=== PATIENT | female | born 1990 | race Caucasian/White ===

== ENCOUNTER 2023-11-05 13:39 | Observation (INO) ==
[2023-11-05] MEDS: LACTATED RINGER'S 1,000 ML IV PRN ×2 (14:03→16:50)
[2023-11-05 14:37] LABS: Appearance Urine Cloudy (Clear); Bilirubin Urine Negative (Negative); Blood Urine 3+ (Negative); Color Urine Yellow; Glucose Urine UA Negative (Negative); Ketones Urine 1+ (Negative); Leukocyte Esterase Urine Trace (Negative); Nitrite Urine Negative (Negative); Protein Urine 3+ (Negative); Specific Gravity Urine 1.024 (1.000-1.030); Urobilinogen Urine Negative (Negative); pH Urine 6.5 (4.5-7.5)
[2023-11-05 14:38] LABS: Bacteria Urine Automated None Seen (None Seen); Hyaline Casts Urine Present /lpf (None Presnt); RBC Urine Automated >20 /hpf (0-2); WBC Urine Automated 0-5 /hpf (0-5)
[2023-11-05 14:47] LABS: Basophils # (auto) 0.06 K/uL (0.00-0.20); Basophils % (auto) 0.4 %; Eosinophils # (auto) 0.01 K/uL (0.00-0.50); Eosinophils % (auto) 0.1 %; Hematocrit (blood only) 36.9 % (37.0-47.0); Hemoglobin 12.9 g/dl (12.0-16.0); Immature Granulocytes % (auto) 1.2 %; Lymphocytes % (auto) 13.3 %; Mean Corpuscular Hemoglobin 31.1 pg (25.0-34.0); Mean Corpuscular Volume 88.9 fL (80.0-100.0); Mean Platelet Volume 12.2 fL (9.4-12.4); Monocytes % (auto) 4.2 %; Neutrophils # (auto) 13.34 K/uL (1.40-6.50); Neutrophils % (auto) 80.8 %; Platelet Count 254 K/uL (130-400); RDW Coefficient of Variation 14.3 % (11.5-14.5); RDW Standard Deviation 46.1 fL (36.4-46.3); Red Blood Count 4.15 M/uL (4.20-5.40); White Blood Count 16.51 K/ul (4.8-10.8)
--- NOTE | 2023-11-05 15:54 | Ultrasound Report ---
US OB limited CLINICAL HISTORY: bleeding at 32 weeks gestation COMPARISON STUDY: OB ultrasound September 02, 2023. TECHNIQUE: Transabdominal sonography of the pelvis was performed. FINDINGS: Single viable intrauterine gestation is noted with cephalic presentation. heart rate is normal at 148 bpm. Cervix is closed, measuring 2.7 cm in length. Amniotic fluid index is normal at 15 cm. Anterior placenta is noted. There is no placental abnormality. IMPRESSION: 1. Single viable intrauterine gestation with cephalic presentation. 2. Normal heart rate. 3. Closed cervix, measuring 2.7 cm in length. 4. No placental abnormality identified. 5. Normal amniotic fluid index. ACT 112: Negative or not required by law. Electronically signed by: Miki Adair M.D. 11/05/2023 3:52 PM
[2023-11-05 15:58] LABS: Fibrinogen 485 mg/dl (184-400)
--- NOTE | 2023-11-05 16:22 | Progress Note ---
Date of Service November 05, 2023 Assessment & Plan (1) with third trimester bleeding, antepartum: Plan: Patient is 33-year-old G1, P0 at 32 gestation presents with bleeding. Patient had intercourse last night. is complicated with gestation GDM A2. and obesity. Speculum exam shows cervix is 1cm, thick and posterior no gross blood in the vaginal vault. IV fluids were started CBC CMP ultrasound is ordered and reviewed Urine is ordered but appears contaminated. Cath urine will therefore we obtained Betamethasone is ordered Plan Admitted for admitted for observation Results & Data Vital Signs (Past 12 Hours) Vital Signs Temp Pulse Resp BP 11/05/23 13:43 116 H 142/87 H 11/05/23 13:43 36.9 C 18
[2023-11-05] MEDS: BETAMETH SOD PHOS/ACETATE IA 6 MG/ML IM STA (16:50)
[2023-11-05 16:51] LABS: Albumin Globulin Ratio 1.3 (0.9-2); Albumin Level 3.4 gm/dl (3.4-5.0); BUN Creatinine Ratio 12.7 (10-20); Bilirubin,Total 0.3 mg/dl (0.2-1.0); Calcium 8.8 mg/dl (8.6-10.3); Creatinine Clr Calc Pharmacy 125.6 ml/min; Est GFR (African American) 130.6 ml/min; Est GFR (Non-African American) 112.7 ml/min; Globulin 2.7 gm/dl (2.5-4.0); Total Protein 6.1 gm/dl (6.0-8.3)
[2023-11-05] MEDS: metFORMIN HCL 500 MG TAB PO SCH (20:34)
[2023-11-05 20:36] LABS: Appearance Urine Clear (Clear); Bilirubin Urine Negative (Negative); Blood Urine Negative (Negative); Color Urine Yellow; Glucose Urine UA Negative (Negative); Ketones Urine 2+ (Negative); Leukocyte Esterase Urine Negative (Negative); Nitrite Urine Negative (Negative); Protein Urine Negative (Negative); Specific Gravity Urine 1.022 (1.000-1.030); Urobilinogen Urine Negative (Negative); pH Urine 6.5 (4.5-7.5)
[2023-11-05 20:55] LABS: Creatinine Urine Random 123.3 mg/dl; Protein Creatinine Ratio Urine 0.1 (0-0.2); Total Protein Urine Random 12.1 mg/dl (0-11.9)
--- OUTSIDE RECORDS SUMMARY | 2023-11-05 21:02 | External Medical Summary | Summary of Care ---
Author Name Unknown Organization [facility] Address [address] [place] [address] Phone [phone] Care Team Providers Care Sponge Hooker Name Role Phone WoodrowLainey Primary Care Provider Encounter Details Date Type Department Care Team (Late st Contact Info) Description 10/24/2023 1:00 PM EDT Office Visit Practical Nurse Obstetrics Maternal Medicine, [address] [address] Marbella Fowler DO [address] [place] [address] Obesity during in second trimester*; Gestational diabetes mellitus (GDM) controlled on oral hypoglycemic drug, antepartum; Ultrasound for screening for growth restriction; 30 weeks gestation of Allergies No known active allergiesdocumented as of this encounter (statuses as of 10/24/2023) Medications Medication Sig Dispensed Refills Start Date End Date Status Ascorbic Acid (VITAMIN C) 1000 MG TabletIndications:T aken during menstrual cycle Take 1 Tablet by mouth in the morning. Active B-12 500 MCG Oral Tablet Take by mouth. 07/07/2020 Active Pantoprazole Sodium 40 MG Oral Tablet Delayed Release (Protonix)Indicatio ns:Gastroesophageal reflux disease with esophagitis without hemorrhage Take 1 Tablet by mouth in the morning. 30 minutes before the first meal of the day. Do not crush, split or chew the tablet. 30 Tablet 5 12/05/2022 Active Ondansetron HCl 8 MG Oral Tablet 1 tablet by mouth every 8 hours as needed for nausea and/or vomiting 30 Tablet 1 05/21/2023 Active Complete Oral Capsule Therapy Pack Take by mouth. Active [employer]Ze[employer] Verio Flex System w/Device KitIndications:Diet controlled gestational diabetes mellitus (GDM) in second trimester Use to test blood sugars 4 times daily (fasting, 1 hour after breakfast, lunch, and dinner) 1 Kit 07/11/2023 Active [employer] Verio In Vitro Strip (Glucose Blood)Indications:D iet controlled gestational diabetes mellitus (GDM) in second trimester Use to test blood sugars 4 times daily (fasting, 1 hour after breakfast, lunch, and dinner) 125 Strip 6 07/11/2023 Active Stagend.comuch Delica Lancets 30GIndications:Diet controlled gestational diabetes mellitus (GDM) in second trimester Use to test blood sugars 4 times daily (fasting, 1 hour after breakfast, lunch, and dinner) 200 Each 6 07/11/2023 Active Aspirin 81 MG Oral Capsule Take by mouth. Active metFORMIN HCl 500 MG Oral Tablet (Glucophage)Indicat ions:Supervision of high risk in second trimester,Gestation al diabetes mellitus (GDM) in second trimester controlled on oral hypoglycemic drug Take 1000 mg by mouth with breakfast and 1000 mg by mouth at bedtime; approximately 12 hours apart. 90 Tablet 1 08/26/2023 Active Cyclobenzaprine HCl 10 MG Oral Tablet (Flexeril) Take 1 Tablet by mouth at bedtime as needed for Muscle spasms. 30 Tablet 2 09/30/2023 Active documented as of this encounter (statuses as of 10/24/2023) Active Problems Problem Noted Date Diagnosed Date Supervision of high-risk , second trime ster 07/16/2023 Blood pressure elevated without history of HTN 0 07/16/2023 Overview: Patient reports history of elevated blood pressure in the past while taking hormonal control. Blood pressure currently stable in . Recommend bASA 81 mg daily; suspect chronic hypertension as well as several other preeclampsia risk factors (Class 1 obesity, nulliparity). BP Readings from Last 5 Encounters: 07/02/23 108/74 04/09/24 128/82 03/15/23 126/84 12/18/22 132/92 12/10/22 130/90 Last Assessment & Plan: BP Readings from Last 5 Encounters: 08/02/23 114/70 07/02/23 108/74 06/04/23 128/82 03/15/23 126/84 12/18/22 132/92 Class 1 obesity 07/16/2023 Gestational diabetes mellitu s (GDM) controlled on oral hypoglycemic drug, antepartum 07/11/2023 Overview: Gestational diabetes diagnosed at 15 weeks by abnormal 3 hour GTT. Nutrition consult scheduled 08/01. Lab Results Component Value Date/Time 50-G GESTATIONAL GLUCOSE, 1 HOUR - [facility] 195 (H) 07/02/2023 02:48 PM 100-G GESTATIONAL GLUCOSE, 1 HOUR - [facility] 185 (H) 07/09/2023 09:51 AM 100-G GESTATIONAL GLUCOSE, 2 HOUR - [facility] 184 (H) 07/09/2023 11:00 AM 100-G GESTATIONAL GLUCOSE, 3 HOUR - [facility] 89 07/09/2023 11:50 AM 100-G GESTATIONAL GLUCOSE, FASTING - [facility] 95 (H) 07/09/2023 08:45 AM HEMOGLOBIN A1C - [facility] 5.5 09/06/2021 02:49 PM She reports her home blood glucose as following: DATE Fasting 1 hr after Breakfast 1 hr after Lunch 1 hr after Dinner 07/11/23 153 07/12/23 128 X 176 116 07/13/23 96 90 161 106 07/14/23 93 156 137 132 07/15/23 82 X 155 138 07/16/23 87 07/16/23: MFM [facility]T consult complete. Enrolled in [facility]. Instructions provided to report blood sugars each week for MFM review 07/19/23: [facility] unable to contact for RPM. Message sent to the [facility] to schedule FU ADAPT 07/23/23: RPM reviewed; Elevated FBS and PP's. Msg to PARs to schedule ADAPT visit. Nutrition visit schedule 08/02/23. 07/25/23: ADAPT visit complete; elevated FBS and some PP values; patient deferred starting insulin but agreeable to Metformin; ordered Metformin 500mg PO daily with evening meal/snack; recommend fasting 8-10 hours overnight along with having a bedtime snack of 30g CHO paired with protein; recommend keeping food log; patient aware of upcoming Nutrition visit 07/29/20237410-UPF-ljxdbal stable. Multiple missed readings; encouraged to test and report as instructed. 08/05/20236114-YDS-gmthhbkq post prandial lunch and dinner values. Maternal medicine nurse practitioners to review. 08/05/23: RPM reviewed; PP elevations; increase to Metformin 500mg PO with breakfast and evening meal/snack 08/06/23: HgbA1c 5.5% 08/09/23: RPM message received - patient reporting GI symptoms; recommend F/U ADAPT to discuss possibility of switching to insulin; awaiting patient response back 08/12/20233873-VGE-tcprfznr elevated fasting blood sugars and post prandial values. Patient agreeable to follow up ADAPT appointment. [facility] messaged to schedule. 08/14/23: ADAPT follow-up completed. Increase Metformin to 1000 mg in the morning; continue 500 mg at night for now. Discussed that she will likely also need increase in morning dose, but will adjust slowly to try and minimize unpleasant side effects. Patient will reach out if she is experiencing intolerable GI discomfort so that we can discuss switching to insulin if needed. 08/19/20231206-TTZ-vdrtord stable (< 50% elevated) 08/26/2023-RPM-3 elevated fasting blood sugars and 3 post prandial dinner values. Will have maternal medicine nurse practitioners review. 08/26/23: RPM reviewed; Continue Metformin to 1000 mg in morning, increase to 1000 mg at bedtime --- per message from patient , she doesn't want to take 1000 mg in the morning because she has been having 70-80's after lunch. Will take 1 tablet with breakfast and 1 tablet with lunch and the 1000 mg at bedtime. 09/02/23: RPM reviewed; Stable overall 09/09/23: RPM reviewed; Stable overall; continue Metformin 09/16/23: RPM reviewed; Stable overall; continue Metformin 09/23/23: RPM reviewed; Stable, Continue Metformin 1 tablet with breakfast and 1 tablet with lunch and the 1000 mg at bedtime. 09/30/20236810-GVZ-edpnsour 4 of the past 7 days; overall stable. Messaged to be consistent with testing/reporting four times daily 10/07/20233233-AJO-rfovnft stable (< 50% elevated) 10/14/20235055-DJT-gcteehs stable. 3 of 7 elevated post prandial dinner values; advised to watch diet and will follow up next week 10/21/20236463-DIQ-hnixqvd stable (< 50 % elevated) Last Assessment & Plan: Working with ADAPT. Supervision of normal first , antepartu m 06/04/2023 Obesity during in second trimester 10/2023 Overview: Pre-gravid BMI 34.11 (#205, 5'5") Last Assessment & Plan: Low risk NIPT appreciated as well as early 1'GTT and 3'GTT leading to diagnosis of GDM. Tobacco smoking affecting in second tr imester 06/04/2023 Overview: Currently smoking 1/2 pack of cigarettes daily; decreased from prior to . Encourage continued cessation efforts. Last Assessment & Plan: Strongly advised patient to stop using tobacco. Discussed that tobacco use is associated with increased risks of spontaneous miscarriage, labor and delivery, premature rupture of membranes, growth restriction, stillbirth, SIDS postnatally, and placental abnormalities such as previa or abruption. Advised patient that the most successful method to quit smoking is if those around you do not smoke as well. Discussed that smoking by anyone in the household is a risk factor for asthma, more frequent respiratory and ear infections, and SIDS. Recommend not allowing anyone to smoke inside the home or car, even with the windows down. Discussed that if family members are unable to quit smoking, they should wash hands and change clothes after smoking outside and before holding the baby. Fibromyalgia 06/04/2023 Overview: Taking cymbalta. Fibromyalgia 10/08/2019 Irritable bowel syndrome with constipation 11/04 Gastroesophageal reflux disease without esophagi tis 11/04/2017 Recurrent vaginitis 06/26/2017 Overview: Multiple yeast and BV infections as per patient. Was treated on 05/07/2017 for BV and yeast 06/26/2017 - presenting with symptoms of vaginal and vulvar burning and irritation; culture pending Menorrhagia with regular cycle 06/06/2016 Estimated Date of Delivery Comme nts Yes 12/30/2023 Based on Ultraso und documented as of this encounter (statuses as of 10/24/2023) Resolved Problems Problem Noted Date Diagnosed Date Resolved Date Abnormal glucose tolerance i n mother complicating 07/02/2023 07/11/2023 Overview: Elevated early 1 hr GTT, 3 hr testing ordered at 14 weeks documented as of this encounter (statuses as of 10/24/2023) Immunizations Name Administration Dates Next Due DT - Diptheria/Tetanus (PEDS) 05/09/2004 DTP Vaccine 06/18/1996, 6,12/29/1993,08/04 HIB PRP-OMP, 3 dose (Pedvax) 12/29/2010,03/21/18 96,08/04/1992 HPV Vaccine, 4-Valent 10/24/2006,06/24/2006,03/29 Hepatitis A, Ped/Adol., 18 y ear and below, 2-Dose 02/01/2011,07/26/2010 Hepatitis B, 0-19 yrs 10/28/1997,10/14/1996,05/27 MMR - Measles/Mumps/Rubella Vaccine 06/18/1996,1 02/28/1993 Meningococcal Conjugate Vaccine 06/24/2006 OPV - Polio Virus Vaccine (Oral) 997,03/21/1995,12/29/1993,08/04 Pneumococcal Polysaccharide PPV23 (Pneumovax) 07/09/2016 Seasonal Influenza, PF, 6 M & above, IM , (FluLaval or Fluzone) 03/14/2018 Seasonal Influenza, Trivalen t, (IIV3), with Preserv, (Fluzone) 02/13/2011,12/13/2008 TDAP, Age 7 and older, IM (Adacel) 07/26/2010 documented as of this encounter Social History Tobacco Use Types Packs/Day Years Used Date Smoking Tobacco: Every Day Cigarettes Smokeless Tobacco: Never Comments:1/2 post dep ression - cut back since [facility] Alcohol Use Standard Drinks/Week Comments Not Currently 0 (1 standard drink = 0.6 oz pur e alcohol) occasional PHQ-2 Answer Date Recorded PHQ Adult Total Score 0 05/31/2020 Hunger Vital Sign Answer Date Recorded Within the past 12 months, y ou worried that your food would run out before you got the money to buy more. Never true 08/16/19 24 Within the past 12 months, t he food you bought just didn't last and you didn't have money to get more. Never true 08/16/2023 Kershaw Depression Scale Answer Date Recorded Kershaw Depression Scale Total 13 06/04/2023 The thought of harming myself has occurred to me . Never 06/04/2023 Childcare Answer Date Recorded Do you feel overwhelmed with taking care of a child, family member or friend? No 08/16/2023 Does your family need help f inding childcare? (Household - for ages 0-17 years) Not on file 08/16/2023 Clothing Answer Date Recorded Have you been unable to get clothing when it was really needed? No 08/16/2023 Is your family able to get c lothes or diapers when needed? (Household - for ages 0-17 years) Not on file 08/16/2023 Personal Safety Answer Date Recorded Do you feel unsafe or have concerns for your saf ety? No 08/16/2023 Do you have concerns for you r family's safety? (Household - for ages 0-17 years) Not on file 08/16/2023 Utilities Answer Date Recorded Do you have trouble paying y our heating, water, or electric bill? No 08/16/2023 Is your family able to pay t he heat, water, or electric bill? (Household - for ages 0-17 years) Not on file 08/16/2023 Does your family have access to good internet? (Household - for ages 0-17 years) Not on file 08/16/2023 Employment Status Answer Date Recorded Are you unemployed or without regular income? No 08/16/2023 Does the household have a re gular source of income? (Household - for ages 0-17 years) Not on file 08/16/2023 Social Connections Answer Date Recorded How often do you feel lonely or isolated from th ose around you? Never 08/16/2023 Financial Resource Strain Answer Date R ecorded Do you have any trouble payi ng for your medications, or do you think you might in the future? No 08/16/2023 Does your family have troubl e paying for medicine? (Household - for ages 0-17 years) Not on file 08/16/2023 Transportation Needs Answer Date Record ed READ ONLY Do you have troubl e getting a ride to medical visits or work? Never True 08/16/2023 Does your family have a hard time getting a ride to doctors visits? (Household - for ages 0-17 years) Not on file 08/16/2023 Has lack of transportation k ept you from medical appointments, meetings, work, or from getting things needed for daily living? Check all that apply. No 08/16/2023 Do you (or your family) have trouble finding or paying for a ride (transportation)? (Household - for ages 0-17 years) Not on file 08/16/2023 Housing Stability Answer Date Recorded Do you currently live in a s helter or have no steady place to sleep at night? No 08/16/2023 READ ONLY Do you think you a re at risk of becoming homeless? No 08/16/2023 Does your family worry about paying for your home or becoming homeless? (Household - for ages 0-17 years) Not on file 0 08/16/2023 Are you homeless or worried that you might be in the future? No 08/16/2023 Are you (or your family) jeff eless or worried that you might be in the future? (Household - for ages 0-17 years) Not on file Food Insecurity Answer Date Recorded Do you need food for this week? No 08/16/2023 Are you able to get enough f ood for your family? (Household - for ages 0-17 years) Not on file 08/16/2023 Does your family need food t his week? (Household - for ages 0-17 years) Not on file 08/16/2023 Do you always have enough fo od for your family? (Household - for ages 0-17 years) Not on file 08/16/2023 Estimated Date of Delivery Comme nts Yes 12/30/2023 Based on Ultraso und Sex and Gender Information Value Date Recorded Sex Assigned at Female 08/16/2021 10:34 AM EDT Gender Identity Female 08/16/2021 10:34 AM EDT Sexual Orientation Choose not to disclose 2021 10:34 AM EDT Job Start Date Occupation Industry Not on file Not on file Not on file documented as of this encounter Progress Notes * Marbella Fowler DO - 10/24/2023 1:40 PM EDT Sophie presented today at 30w3d for an ultrasound for the following indications: Obesity during in second trimester Gestational diabetes mellitus (GDM) controlled on oral hypoglycemic drug, antepartum Assessment & Plan: Working with ADAPT. Ultrasound for screening for growth restriction 30 weeks gestation of Ultrasound summary: Patient presented at 30w 3d for growth assessment. Normal growth with EFW 1676 g at 56%ile. Normal RAMESH at 21.2 cm. Cephalic presentation. I reviewed the ultrasound images. oSphie was given the opportunity to meet with me if she had any questions. Please refer to the ultrasound report for additional details about today's ultrasound examination. RECOMMENDATIONS: Recommend follow up ultrasound with MFM in 4 weeks for growth secondary to above indications. 2x weekly NSTs at 32 weeks. See prior formal MFM consultation note. Thank you for allowing us to participate in the care of this patient. Please call with any questions. Marbella Fowler DO 10/24/2023 1:40 PM documented in this encounter Miscellaneous Notes * Assessment & Plan Note - Marbella Fowler DO - 10/24/2023 1:40 PM EDT Associated Problem(s): Gestational diabetes mellitus (GDM) controlled on oral hypoglycemic drug, antepartum Working with ADAPT. documented in this encounter Plan of Treatment Upcoming Encounters Date Type Department Care Team (Late st Contact Info) Description 10/24/2023 2:15 PM EDT Office Visit Gynecology/Obstetrics [facility] [address] [place] [id number] Sobia Gould CRNP [address] [place] [id number] Arrived 11/21/2023 8:45 AM EDT Imaging Maternal Medicine [facility], [facility] [address] [place] [id number] Health Maintenance Due Date Last Done Comments Pneumococcal Vaccine: Pediatrics (0 to 5 Years) and At-Risk Patients (6 to 64 Years) (2 of 2 - PCV) 07/09/2017 07/09/2016 DTap/Tdap Vaccines (7 - Td or Tdap) 07/26/2020 07/26/2010, 05/09/2004, 06/18/1996, Additional history exists Depression Screening 05/31/2021 05/31/2020 COVID-19 Vaccine ( season) 2022 Influenza Vaccine (FLU shot) (#1) 2023 03/14/2018, 02/13/2011, 12/13/2008 Pap Smear 06/03/2026 06/04/2023, 03/28, 06/06/2016, Additional history exists Cervical Cancer Screening 06/03/2028 HPV/Co-Test 06/03/2028 06/04/2023 Hepatitis B Vaccine Completed 10/28/1997, 10/14/1996, 06/18/1996 MENINGOCOCCAL (MENACTRA/MENVEO) Aged Out 06/24/2006 No longer eligible based on patient's age to complete this topic HPV (Gardasil) Vaccine Completed 7, 06/24/2006, 04/18/2006 documented as of this encounter Medical Devices Not on filedocumented as of this encounter Visit Diagnoses Diagnosis Obesity during in second trimester- Primary Gestational diabetes mellitus (GDM) controlled on oral hypoglycemic drug, antepartum Ultrasound for screening for growth restriction screening for growth retardation using ultrasonics 30 weeks gestation of state, incidental documented in this encounter Care Teams Sponge Hooker Relationship Specialty Start Date End Date Lainey Troy DO [address] [place] [address] [place] [id number] PCP - General Internal Medicine 07/09/16 documented as of this encounter
--- OUTSIDE RECORDS SUMMARY | 2023-11-05 21:02 | External Medical Summary | Summary of Care ---
Author Name Unknown Organization [facility] Address [address] [place] [address] Phone [phone] Care Team Providers Care Lockstitch Cup Setter Name Role Phone Woodrow Lainey Tran LUNA Primary Care Provider Reason for Visit * Reason Comments Return Visit Encounter Details Date Type Department Care Team (Late st Contact Info) Description 10/24/2023 2:15 PM EDT Office Visit Gynecology/Obstetric s Floresmatthew Man [address] [place] [place] [address] Sobia Gould CRNP [address] [facility] [place] [address] Supervision of normal first , antepartum*; Fibromyalgia; Obesity during in second trimester; Tobacco smoking affecting in second trimester; Gestational diabetes mellitus (GDM) controlled on oral hypoglycemic drug, antepartum; Supervision of high-risk , second trimester; Blood pressure elevated without history of HTN; Class 1 obesity; Need for ycdzyafwam-twpxfdy-kk rtussis (Tdap) vaccine Allergies No known active allergiesdocumented as of [...] Capsule Therapy Pack Take by mouth. Active [employer] Flex System w/Device KitIndications:Diet controlled gestational diabetes mellitus (GDM) in second trimester Use to test blood sugars 4 times daily (fasting, 1 hour after breakfast, lunch, and dinner) 1 Kit 07/11/2023 Active [employer] In Vitro Strip (Glucose Blood)Indications:D iet controlled gestational diabetes mellitus (GDM) in second trimester Use to test blood sugars 4 times daily (fasting, 1 hour after breakfast, lunch, and dinner) 125 Strip 6 07/11/2023 Active [employer] Delica Lancets 30GIndications:Diet controlled gestational diabetes mellitus [...] Readings from Last 5 Encounters: 07/02/23 108/74 06/04/23 128/82 03/15/23 126/84 12/18/22 132/92 12/10/22 130/90 [...] contact for RPM. Message sent to the [facility] to schedule FU ADAPT 07/23/23: RPM reviewed; [...] log; patient aware of upcoming Nutrition visit 07/29/20230667-FQH-agdvtnw stable. Multiple missed readings; encouraged to test and report as instructed. 08/05/20238011-IZH-nxcjqzef post prandial lunch and dinner values. Maternal medicine nurse practitioners to review. 08/05/23: RPM reviewed; PP elevations; increase to Metformin 500mg PO with breakfast and evening meal/snack 08/06/23: HgbA1c 5.5% 08/09/23: RPM message received - patient reporting GI symptoms; recommend F/U ADAPT to discuss possibility of switching to insulin; awaiting patient response back 08/12/20236150-MBF-nvnfcrtz elevated fasting blood sugars and post prandial values. Patient agreeable to follow up ADAPT appointment. [facility] messaged to schedule. 08/14/23: ADAPT follow-up [...] can discuss switching to insulin if needed. 08/19/20235299-NUZ-abwoztw stable (< 50% elevated) 08/26/2023-RPM-3 elevated fasting [...] lunch and the 1000 mg at bedtime. 09/30/20238219-QFH-nyscuwsv 4 of the past 7 days; overall stable. Messaged to be consistent with testing/reporting four times daily 10/07/20232041-RDA-wwredam stable (< 50% elevated) 10/14/20235815-WOY-jotzmtd stable. 3 of 7 elevated post prandial dinner values; advised to watch diet and will follow up next week 10/21/20233359-JXU-wlhsuhp stable (< 50 % elevated) Last Assessment [...] TDAP, Age 7 and older, IM (Adacel) 10/24/2023, documented as of this encounter Social History [...] money to get more. Never true 08/16/2023 [place] Depression Scale Answer Date Recorded [place] Depression Scale Total 13 06/04/2023 The thought [...] on file documented as of this encounter Last Filed Vital Signs Vital Sign Reading Time Taken Comments Blood Pressure 126/82 10/24/2023 2:07 PM EDT Pulse - - Temperature - - Respiratory Rate - - Oxygen Saturation - - Inhaled Oxygen Concentration - - Weight 91.6 kg (202 lb) 10/24/2023 2:07 PM EDT Height - - Body Mass Index 33.61 08/02/2023 4:11 PM EDT documented in this encounter Progress Notes * Poornima Ward CMA - 10/24/2023 2:36 PM EDT Patient here for TDAP injection. Patient doing well no complaints. Injection given IM as ordered. Patient tolerated well. Patient to follow up as directed. Patient instructed to call if any complications. Patient verbalized understanding of instructions given and her follow up appt for 12 weeks Injection site: Right Deltoid Medication Source: Dispensed stock medication * Sobia Gould CRNP - 10/24/2023 2:31 PM EDT 30w3d Having some swelling in hands and feet. Noticed some vaginal discharge, no s/s of infection. Following with MFM for GDM, is on metformin. Growth u/s today with MFM, formal report pending. Baby is active. She denies contractions, bleeding, LOF. TDAP today. To begin NSTs at 32w. Discussed timing of them. Will try to schedule some at [facility]. NELDA Leal * Poornima Ward CMA - 10/24/2023 2:07 PM EDT 30w3d + headaches, tylenol helps occasionally Swelling hands and feet. documented in this encounter Plan of Treatment Upcoming Encounters Date Type Department Care Team (Late st Contact Info) Description 11/14/2023 9:45 AM EDT Office Visit Gynecology/Obstetrics Flores's Man [address] [place] [address] Sobia Gould CRNP [address] [place] [address] Man, Non Stress Tests Lizeth [address] [place] [address] 11/18/2023 1:45 PM EDT Office Visit Gynecology/Obstetrics Flores's Man [address] [address] Sobia Gould CRNP [address] [place] [address] Man, Non Stress Tests Lizeth [address] [place] [address] 11/21/2023 8:45 AM EDT Imaging Maternal Medicine Imaging, Lizeth Chengs [address] [address] 11/21/2023 9:45 AM EDT Office Visit Gynecology/Obstetrics Flores's Man [address] [place] [place] [address] Sobia Gould CRNP [address] [place] [address] Man, Non Stress Tests Lizeth [address] [place] [address] 11/25/2023 9:30 AM EDT Office Visit Gynecology/Obstetrics Jasmin Man [address] [place] [address] Sobia Gould, SENIOR TERADATA DEVELOPER [address] [place] [address] Adelia Man Stress Tests Lizeth [address] [place] [address] 11/28/2023 1:45 PM EDT Office Visit Gynecology/Obstetrics Jasmin Man [address] [address] Sobia Gould SENIOR TERADATA DEVELOPER [address] [place] [address] Adelia Man Stress Tests Lizeth [address] [place] [address] 12/02/2023 9:30 AM EDT Office Visit Gynecology/Obstetrics [address] [place] [address] Sobia Gould SENIOR TERADATA DEVELOPER [address] [place] [address] 12/05/2023 1:45 PM EDT Office Visit Gynecology/Obstetrics Jasmin Man [address] [address] Sobia Gould SENIOR TERADATA DEVELOPER [address] [place] [address] Donovan Non Stress Tests Lizeth [address] [place] [address] 12/12/2023 1:45 PM EDT Office Visit Gynecology/Obstetrics Flores's Man [address] [address] Sobia Gould CRNP [address] [place] [address] Man, Non Stress Tests Lizeth [address] [place] [address] 12/16/2023 9:30 AM EDT Office Visit Gynecology/Obstetrics [address] [place] [address] Sobia Gould CRNP [address] [place] [address] 12/16/2023 2:30 PM EDT Office Visit Gynecology/Obstetrics Flores's Man [address] [address] Evaristo Harper MD [address] [place] [address] Man, Non Stress Tests Lizeth [address] [place] [address] 12/19/2023 1:45 PM EDT Office Visit Gynecology/Obstetrics Flores's Man [address] [place] [address] Sobia Gould CRNP [address] [place] [address] Man, Non Stress Tests Lizeth [address] [place] [address] 12/23/2023 2:30 PM EDT Office Visit Gynecology/Obstetrics Flores's Man [address] [place] [address] Evaristo Harper MD [address] [place] [address] Donovan, Non Stress Tests Lizeth [address] [place] [address] 12/26/2023 1:45 PM EDT Office Visit Gynecology/Obstetrics Jasmin Man [address] [place] [address] Sobia Gould CRNP [address] [place] [address] Donovan, Non Stress Tests Lizeth [address] [place] [address] 12/30/2023 1:00 PM EST Office Visit Gynecology/Obstetrics Jasmin Man [address] [place] [address] Bonnie Almanzar CRNP [address] [place] [address] Donovan, Non Stress Tests Lizeth [address] [place] [address] Health Maintenance Due Date Last Done Comments Pneumococcal Vaccine: Pediatrics (0 to 5 Years) and At-Risk Patients (6 to 64 Years) (2 of 2 - PCV) 07/09/2017 07/09/2016 Depression Screening 05/31/2021 05/31/2020 COVID-19 Vaccine ( - season) 2022 Influenza Vaccine (FLU shot) (#1) 2023 03/14/2018, 02/13/2011, 12/13/2008 Pap Smear 06/03/2026 06/04/2023, 03/28, 06/06/2016, Additional history exists Cervical Cancer Screening 06/03/2028 HPV/Co-Test 06/03/2028 06/04/2023 DTap/Tdap Vaccines (8 - Td or Tdap) 10/23/2033 10/24/2023, 07/26/2010, 05/09/2004, Additional history exists Hepatitis B Vaccine Completed 10/28/1997, 10/14/1996, 06/18/1996 MENINGOCOCCAL (MENACTRA/MENVEO) Aged Out 06/24/2006 No longer eligible based on patient's age to complete this topic HPV (Gardasil) Vaccine Completed 7, 06/24/2006, 04/18/2006 documented as of this encounter Medical Devices Not on filedocumented as of this encounter Visit Diagnoses Diagnosis Supervision of normal first , antepartum- Primary Fibromyalgia Mylagia and myositis, unspecified Obesity during in second trimester Tobacco smoking affecting in second trimester Gestational diabetes mellitus (GDM) controlled on oral hypoglycemic drug, antepartum Supervision of high-risk , second trimester Blood pressure elevated without history of HTN Elevated blood pressure reading without diagnosis of hypertension Class 1 obesity Need for zynbfzqwdw-brhjlao-vtrkdrhbz (Tdap) vaccine Need for prophylactic vaccination with combined jnqkrslpfx-saisiwg-bjkptogtg (DTP) vaccine documented in this encounter Care Teams Lockstitch Cup Setter Relationship Specialty Start Date End Date Lainey Troy DO [address] [place] [address] [place] [address] PCP - General Internal Medicine 07/09/16 documented as of this encounter
--- OUTSIDE RECORDS SUMMARY | 2023-11-05 21:02 | External Medical Summary | Summary of Care ---
Author Name Unknown Organization [facility] Address [address] [place] [address] Phone [phone] Care Team Providers Care Auto Repair Shop Manager Name Role Phone Stephon Troyanda Tran LUNA Primary Care Provider Encounter Details Date Type Department Care Team (Late st Contact Info) Description 08/12/2023 Telephone Combat Systems Operator [employer] Obstetrics Maternal Medicine, [place] [address] [place] [address] [place] Nurse Combat Systems Operator [employer] [facility] [address] [place] [address] Allergies No known active allergiesdocumented as of this encounter (statuses as of 10/25/2023) Medications Medication Sig Dispensed Refills Start Date End Date Status Ascorbic Acid (VITAMIN C) 1000 MG TabletIndications:Juan en during menstrual cycle Take 1 Tablet by mouth in the morning. Active B-12 500 MCG Oral Tablet Take by mouth. 07/07/2020 Active Pantoprazole Sodium 40 MG Oral Tablet Delayed Release (Protonix)Indications :Gastroesophageal reflux disease with esophagitis without hemorrhage Take [...] Capsule Therapy Pack Take by mouth. Active [employer] Flex System w/Device KitIndications:Diet controlled gestational diabetes mellitus (GDM) in second trimester Use to test blood sugars 4 times daily (fasting, 1 hour after breakfast, lunch, and dinner) 1 Kit 07/11/2023 Active [employer] In Vitro Strip (Glucose Blood)Indications: t controlled gestational diabetes mellitus (GDM) in second trimester Use to test blood sugars 4 times daily (fasting, 1 hour after breakfast, lunch, and dinner) 125 Strip 6 07/11/2023 Active [employer] Delica Lancets 30GIndications:Diet controlled gestational diabetes mellitus (GDM) in second trimester Use to test blood sugars 4 times daily (fasting, 1 hour after breakfast, lunch, and dinner) 200 Each 6 07/11/2023 Active Aspirin 81 MG Oral Capsule Take by mouth. Active documented as of this encounter (statuses as of 10/25/2023) Active Problems Problem Noted Date Diagnosed Date [...] contact for RPM. Message sent to the [facility] to schedule FU ADAPT 07/23/23: RPM reviewed; Elevated FBS and PP's. Msg to [facility] to schedule ADAPT visit. Nutrition visit schedule 08/02/23. 07/25/23: ADAPT visit complete; elevated FBS and some PP values; patient deferred starting insulin but agreeable to Metformin; ordered Metformin 500mg PO daily with evening meal/snack; recommend fasting 8-10 hours overnight along with having a bedtime snack of 30g CHO paired with protein; recommend keeping food log; patient aware of upcoming Nutrition visit 07/29/20233986-TLB-sjnymqq stable. Multiple missed readings; encouraged to test and report as instructed. 08/05/20239157-FAY-cstzewzt post prandial lunch and dinner values. Maternal medicine nurse practitioners to review. 08/05/23: RPM reviewed; PP elevations; increase to Metformin 500mg PO with breakfast and evening meal/snack 08/06/23: HgbA1c 5.5% 08/09/23: RPM message received - patient reporting GI symptoms; recommend F/U ADAPT to discuss possibility of switching to insulin; awaiting patient response back 08/12/20231351-EPQ-ueasmzmn elevated fasting blood sugars and post prandial [...] can discuss switching to insulin if needed. 08/19/20233439-NIF-hsugrpb stable (< 50% elevated) 08/26/2023-RPM-3 elevated fasting [...] lunch and the 1000 mg at bedtime. 09/30/20230309-CLE-lbhcpjrp 4 of the past 7 days; overall stable. Messaged to be consistent with testing/reporting four times daily 10/07/20231349-AAF-jdeueiv stable (< 50% elevated) 10/14/20231836-ZKK-xawgigp stable. 3 of 7 elevated post prandial dinner values; advised to watch diet and will follow up next week 10/21/20230963-YGI-wyadkbw stable (< 50 % elevated) Last Assessment [...] as of this encounter (statuses as of 10/25/2023) Resolved Problems Problem Noted Date Diagnosed Date Resolved Date Abnormal glucose tolerance i n mother complicating 07/02/2023 07/11/2023 Overview: Elevated early 1 hr GTT, 3 hr testing ordered at 14 weeks documented as of this encounter (statuses as of 10/25/2023) Immunizations Name Administration Dates Next Due DT [...] money to get more. Never true 08/16/2023 [place] Depression Scale Answer Date Recorded [place] Depression Scale Total 13 06/04/2023 The thought [...] 08/16/2023 Does the household have a re lar source of income? (Household - for ages [...] on file documented as of this encounter Miscellaneous Notes * Telephone Encounter - Maria E Chauhan OSA - 08/12/2023 2:10 PM EDT Spoke with Sophie. Appointment scheduled. Patient aware of date, time and location of Maternal FetalMedicine appointment. * Telephone Encounter - Maria E Chauhan OSA - 08/12/2023 2:01 PM EDT Phone call to patient. Left message on [email or web address] voice mail. [facility] Sent MyG documented in this encounter Plan of Treatment Upcoming Encounters Date Type Department Care Team (Late st Contact Info) Description 11/04/2023 3:00 PM EDT Office Visit Gynecology/Obstetrics [address] [place] [address] Sobia Gould CRNP [address] [place] [address] 11/07/2023 10:15 AM EDT Office Visit Gynecology/Obstetrics Jasmin Man [address] [place] [address] Sobia Gould CRNP [address] [place] [address] Adelia Man Stress Tests Lizeth [address] [place] [address] 11/11/2023 10:45 AM EDT Office Visit Gynecology/Obstetrics Jasmin Man [address] [place] [address] Bonnie Almanzar CRNP [address] [place] [address] Adelia Man Stress Tests Lizeth [address] [place] [address] 11/14/2023 9:45 AM EDT Office Visit Gynecology/Obstetrics Jasmin Man [address] [place] [address] Sobia Gould CRNP [address] [place] [address] Man, Non Stress Tests Lizeth [address] [place] [address] 11/18/2023 1:45 PM EDT Office Visit Gynecology/Obstetrics Mark's Man [address] [place] [address] Sobia Gould CRNP [address] [place] [address] Man, Non Stress Tests Lizeth [address] [place] [address] 11/21/2023 8:45 AM EDT Imaging Maternal Medicine Imaging, Lizeth Man [address] [place] [address] 11/21/2023 9:45 AM EDT Office Visit Gynecology/Obstetrics Katies Man [address] [place] [address] Sobia Gould CRNP [address] [place] [address] Man, Non Stress Tests Lizeth [address] [place] [address] 11/25/2023 9:30 AM EDT Office Visit Gynecology/Obstetrics Mark's Man [address] [place] [address] Sobia Gould CRNP [address] [place] [address] Man, Non Stress Tests Lizeth [address] [place] [address] 11/28/2023 1:45 PM EDT Office Visit Gynecology/Obstetrics Jasmin Chengs [address] [place] [address] Sobia Gould CRNP [address] [place] [address] Donovan Non Stress Tests Lizeth [address] [place] [address] 12/02/2023 9:30 AM EDT Office Visit Gynecology/Obstetrics [address] [place] [address] Sobia Gould CRNP [address] [place], [place] [address] 12/05/2023 1:45 PM EDT Office Visit Gynecology/Obstetrics Jasmin Man [address] [place] [place] [address] Sobia Gould CRNP [address] [place] [address] Donovan Non Stress Tests Lizeth [address] [place], [place] [address] 12/09/2023 9:00 AM EDT Office Visit Gynecology/Obstetrics Jasmin Man [address] [place] [address] [place] PA-C [address] [place] [address] Donovan Non Stress Tests Lizeth [address] [place] [address] 12/12/2023 1:45 PM EDT Office Visit Gynecology/Obstetrics Jasmin Chengs [address] [place] [address] Sobia Gould CRNP [address] [place] [address] Donovan, Non Stress Tests Lizeth [address] [place] [address] 12/16/2023 9:30 AM EDT Office Visit Gynecology/Obstetrics [address] [place] [address] Sobia Gould CRNP [address] [place] [address] 12/19/2023 1:45 PM EDT Office Visit Gynecology/Obstetrics Mark's Man [address] [place] [address] Sobia Gould CRNP [address] [place] [address] Donovan Non Stress Tests Lizeth [address] [place] [address] 12/23/2023 2:30 PM EDT Office Visit Gynecology/Obstetrics Mark's Man [address] [address] Evaristo Harper MD [address] [place] [address] Donovan Non Stress Tests Lizeth [address] [place] [address] 12/26/2023 1:45 PM EDT Office Visit Gynecology/Obstetrics Mark's Man [address] [place] [address] Sobia Gould CRNP [address] [place] [address] Donovan Non Stress Tests Lizeth [address] [place] [address] 12/30/2023 1:00 PM EST Office Visit Gynecology/Obstetrics Jasmin Man [address] [place] [address] Backer, NELDA Jenkins [address] [place] [address] Donovan, Non Stress Tests Lizeth [address] [place] [address] Health Maintenance Due Date Last Done Comments [...] Not on filedocumented as of this encounter Care Teams Auto Repair Shop Manager Relationship Specialty Start Date End Date Lainey Troy DO [address] [place] [address] [place] [address] PCP - General Internal Medicine 07/09/16 documented as of this encounter
--- OUTSIDE RECORDS SUMMARY | 2023-11-05 21:02 | External Medical Summary | Summary of Care ---
Author Name Unknown Organization [facility] Address [address] [place] [address] Phone [phone] Care Team Providers Care Rn Telemetry Name Role Phone Lainey Troy DO Primary Care Provider Reason for Visit * Reason Comments Return Visit Encounter Details Date Type Department Care Team (Late st Contact Info) Description 11/04/2023 3:00 PM EDT Office Visit Gynecology/Obstetric s [address] [place] [address] Sobia Gould CRNP [address] [facility] [place] [address] Fibromyalgia*; Supervision of normal first , antepartum; Obesity during in second trimester; Tobacco smoking affecting in second trimester; Gestational diabetes mellitus (GDM) controlled on oral hypoglycemic drug, antepartum; Supervision of high-risk , second trimester; Blood pressure elevated without history of HTN; Class 1 obesity Allergies No known active allergiesdocumented as of this encounter (statuses as of 11/04/2023) Medications Medication Sig Dispensed Refills Start Date [...] Capsule Therapy Pack Take by mouth. Active [employer] Flex System w/Device KitIndications:Diet controlled gestational diabetes mellitus (GDM) in second trimester Use to test blood sugars 4 times daily (fasting, 1 hour after breakfast, lunch, and dinner) 1 Kit 07/11/2023 Active [employer] In Vitro Strip (Glucose Blood)Indications:D iet controlled gestational diabetes mellitus (GDM) in second trimester Use to test blood sugars 4 times daily (fasting, 1 hour after breakfast, lunch, and dinner) 125 Strip 6 07/11/2023 Active [employer] Lancets 30GIndications:Diet controlled gestational diabetes mellitus (GDM) [...] as of this encounter (statuses as of 11/04/2023) Active Problems Problem Noted Date Diagnosed Date [...] contact for RPM. Message sent to the [facility] to schedule FU ADAPT 07/23/23: RPM reviewed; Elevated FBS and PP's. Msg to [facility] to schedule ADAPT visit. Nutrition visit schedule 08/02/23. 07/25/23: ADAPT visit complete; elevated FBS and some PP values; patient deferred starting insulin but agreeable to Metformin; ordered Metformin 500mg PO daily with evening meal/snack; recommend fasting 8-10 hours overnight along with having a bedtime snack of 30g CHO paired with protein; recommend keeping food log; patient aware of upcoming Nutrition visit 07/29/20233145-SZG-dfcsdlq stable. Multiple missed readings; encouraged to test and report as instructed. 08/05/20239464-VSP-mkullnfz post prandial lunch and dinner values. Maternal medicine nurse practitioners to review. 08/05/23: RPM reviewed; PP elevations; increase to Metformin 500mg PO with breakfast and evening meal/snack 08/06/23: HgbA1c 5.5% 08/09/23: RPM message received - patient reporting GI symptoms; recommend F/U ADAPT to discuss possibility of switching to insulin; awaiting patient response back 08/12/20233429-SFT-rurhhapv elevated fasting blood sugars and post prandial values. Patient agreeable to follow up ADAPT appointment. [facility] PARs messaged to schedule. 08/14/23: ADAPT follow-up [...] can discuss switching to insulin if needed. 08/19/20237040-MSV-kciafhk stable (< 50% elevated) 08/26/2023-RPM-3 elevated fasting [...] lunch and the 1000 mg at bedtime. 09/30/20233323-BOD-bpwiglen 4 of the past 7 days; overall stable. Messaged to be consistent with testing/reporting four times daily 10/07/20235087-GKC-fsccpcd stable (< 50% elevated) 10/14/20234798-QYL-wfqmuqm stable. 3 of 7 elevated post prandial dinner values; advised to watch diet and will follow up next week 10/21/20234738-STB-fmzjxpg stable (< 50 % elevated) 10/29/20232666-LPL-hrkoybo stable (2 elevated post prandial breakfast and 2 elevated post prandial dinner values) 11/04/20239778-LON-rndevf Last Assessment & Plan: Working with ADAPT. Supervision of normal first , antepartu 06/04/2023 Obesity during in second trimester 10/2023 [...] as of this encounter (statuses as of 11/04/2023) Resolved Problems Problem Noted Date Diagnosed Date Resolved Date Abnormal glucose tolerance i n mother complicating 07/02/2023 07/11/2023 Overview: Elevated early 1 hr GTT, 3 hr testing ordered at 14 weeks documented as of this encounter (statuses as of 11/04/2023) Immunizations Name Administration Dates Next Due DT [...] money to get more. Never true 08/16/2023 [place] Depression Scale Answer Date Recorded [place] Depression Scale Total 13 06/04/2023 The thought [...] Sign Reading Time Taken Comments Blood Pressure - - Pulse - - Temperature - - Respiratory Rate - - Oxygen Saturation - - Inhaled Oxygen Concentration - - Weight 89.4 kg (197 lb) 11/04/2023 1:02 PM EDT Height 165.1 cm (5' 5") 11/04/2023 1:02 PM EDT Body Mass Index 32.78 11/04/2023 1:02 PM EDT documented in this encounter Progress Notes * Sobia Gould CRNP - 11/04/2023 1:34 PM EDT 32w No concerns. Baby is active. No contractions, bleeding, LOF. Reports that blood sugars are good. Following with MFM. ASSESSMENT assessment with Non-stress Test completed on 11/04/2023 at 32weeks gestation for indication of diabetes mellitus heart baseline: 135 bpm Variability: Moderate Decelerations: absent Accelerations: present Contractions: None NST start time: 1305 NST stop time: 1333 NST strip reviewed, interpreted, and approved by OB providerSobia CRNP . NST strip stored in clinic storage file documented in this encounter Plan of Treatment Upcoming Encounters Date Type Department Care Team (Late st Contact Info) Description 11/07/2023 11:00 AM EDT Office Visit Gynecology/Obstetrics [facility] [address] [place] [place] [address] Sobia Gould CRNP [address] [place] [address] Man, Non Stress Tests Lizeth [address] [place] [address] 11/11/2023 10:45 AM EDT Office Visit Gynecology/Obstetrics Jasmin Chengs [address] [place] [address] Backer, NELDA Jenkins [address] [place] [address] Donovan Non Stress Tests Lizeth [address] [place] [address] 11/14/2023 9:45 AM EDT Office Visit Gynecology/Obstetrics Jasmin Chengs [address] [place] [place] [address] Sobia Gould CRNP [address] [place] [address] Donovan Non Stress Tests Lizeth [address] [place] [address] 11/18/2023 1:45 PM EDT Office Visit Gynecology/Obstetrics Jasmin Chengs [address] [place] [place] [address] Sobia Gould UI DEVELOPER [address] [place] [address] Donovan, Non Stress Tests Lizeth [address] [place] [address] 11/21/2023 8:45 AM EDT Imaging Maternal Medicine Imaging, Lizeth Man [address] [place] [address] 11/21/2023 9:45 AM EDT Office Visit Gynecology/Obstetrics Jasmin Man [address] [place], [place] [address] Sobia Gould CRNP [address] [place] [address] Adelia Man Stress Tests Lizeth [address] [place], [place] [address] 11/25/2023 9:30 AM EDT Office Visit Gynecology/Obstetrics Jasmin Man [address] [place], [place] [address] Sobia Gould CRNP [address] [place], [place] [address] Adelia Man Stress Tests Lizeth [address] [place], [place] [address] 11/28/2023 1:45 PM EDT Office Visit Gynecology/Obstetrics Jasmin Man [address] [place] [address] Sobia Gould CRNP [address] [place], [place] [address] Adelia Man Stress Tests Lizeth [address] [place], [place] [address] 12/02/2023 9:30 AM EDT Office Visit Gynecology/Obstetrics [address] [place] [address] Sobia Gould CRNP [address] [place], [place] [address] 12/05/2023 1:45 PM EDT Office Visit Gynecology/Obstetrics Jasmin Man [address] [place] [address] Sobia Gould CRNP [address] [place] [address] Adelia Man Stress Tests Lizeth [address] [place] [address] 12/09/2023 9:00 AM EDT Office Visit Gynecology/Obstetrics Floresmatthew Chengs [address] [place], [place] [address] [place] PA-C [address] [place] [address] [place] [id number] Adelia Man Stress Tests Lizeth [address] [place] [address] 12/12/2023 1:45 PM EDT Office Visit Gynecology/Obstetrics Markmatthew Man [address] [place], [place] [address] Sobia Gould CRNP [address] [place] [address] Adelia Man Stress Tests Lizeth [address] [place] [address] 12/16/2023 9:30 AM EDT Office Visit Gynecology/Obstetrics [address] [place] [address] Sobia Gould CRNP [address] [place] [address] 12/19/2023 1:45 PM EDT Office Visit Gynecology/Obstetrics Jasmin Man [address] [place] [address] Sobia Gould UI DEVELOPER [address] [place] [address] Donovan Non Stress Tests Lizeth [address] [place] [address] 12/23/2023 2:30 PM EDT Office Visit Gynecology/Obstetrics Jasmin Man [address] [place] [place] [address] Evaristo Harper MD [address] [place] [address] Donovan Non Stress Tests Lizeth [address] [place] [address] 12/26/2023 1:45 PM EDT Office Visit Gynecology/Obstetrics Jasmin Man [address] [place] [address] Sobia Gould CRNP [address] [place] [address] Adelia Man Stress Tests Lizeth [address] [place] [address] 12/30/2023 1:00 PM EST Office Visit Gynecology/Obstetrics Jasmin Man [address] [place] [address] Bonnie Almanzar CRNP [address] [place] [address] Donovan Non Stress Tests Lizeth [address] [place] [address] Health Maintenance Due Date Last Done Comments Pneumococcal Vaccine: Pediatrics (0 to 5 Years) and At-Risk Patients (6 to 64 Years) (2 of 2 - PCV) 07/09/2017 07/09/2016 Depression Screening 05/31/2021 05/31/2020 COVID-19 Vaccine (2022-24 season) 2023 Influenza Vaccine (FLU shot) (#1) 2023 03/14/2018, [...] as of this encounter Visit Diagnoses Diagnosis Fibromyalgia- Primary Mylagia and myositis, unspecified Supervision of normal first , antepartum Obesity during in second trimester Tobacco smoking affecting in second trimester Gestational diabetes mellitus (GDM) controlled on oral hypoglycemic drug, antepartum Supervision of high-risk , second trimester Blood pressure elevated without history of HTN Elevated blood pressure reading without diagnosis of hypertension Class 1 obesity documented in this encounter Care Teams Rn Telemetry Relationship Specialty Start Date End Date Lainey Troy DO [address] [place] [address] [place] [address] PCP - General Internal Medicine 07/09/16 documented as of this encounter
--- OUTSIDE RECORDS SUMMARY | 2023-11-05 21:02 | External Medical Summary | Summary of Care ---
Author Name Unknown Organization [facility] Address [address] [place] [address] Phone [phone] Care Team Providers Care Developmental Psychologist Name Role Phone WoodrowLainey Primary Care Provider Encounter Details Date Type Department Care Team (Late st Contact Info) Description 10/24/2023 1:00 PM EDT Office Visit First [place] Obstetrics Maternal Medicine, [address] [address] Marbella Fowler DO [address] [place] [address] Obesity during in second trimester*; [...] Capsule Therapy Pack Take by mouth. Active [employer] Flex System w/Device KitIndications:Diet controlled gestational diabetes mellitus (GDM) in second trimester Use to test blood sugars 4 times daily (fasting, 1 hour after breakfast, lunch, and dinner) 1 Kit 07/11/2023 Active [employer] In Vitro Strip (Glucose Blood)Indications:D iet controlled gestational diabetes mellitus (GDM) in second trimester Use to test blood sugars 4 times daily (fasting, 1 hour after breakfast, lunch, and dinner) 125 Strip 6 07/11/2023 Active [employer] Lancets 30GIndications:Diet controlled gestational diabetes mellitus [...] contact for RPM. Message sent to the [facility] to schedule FU ADAPT 07/23/23: RPM [...] log; patient aware of upcoming Nutrition visit 07/29/20232407-SUG-ryddoxc stable. Multiple missed readings; encouraged to test and report as instructed. 08/05/20233295-YWC-ribgncuw post prandial lunch and dinner values. Maternal medicine nurse practitioners to review. 08/05/23: RPM reviewed; PP elevations; increase to Metformin 500mg PO with breakfast and evening meal/snack 08/06/23: HgbA1c 5.5% 08/09/23: RPM message received - patient reporting GI symptoms; recommend F/U ADAPT to discuss possibility of switching to insulin; awaiting patient response back 08/12/20232215-KNW-czeftrvu elevated fasting blood sugars and post prandial values. Patient agreeable to follow up ADAPT appointment. [facility] PARs messaged to schedule. 08/14/23: ADAPT follow-up [...] can discuss switching to insulin if needed. 08/19/20233622-TPI-ezjxomi stable (< 50% elevated) 08/26/2023-RPM-3 elevated fasting [...] lunch and the 1000 mg at bedtime. 09/30/20234043-HER-yejynmyo 4 of the past 7 days; overall stable. Messaged to be consistent with testing/reporting four times daily 10/07/20237976-BBK-kbiqlwg stable (< 50% elevated) 10/14/20233638-RMV-lddulfl stable. 3 of 7 elevated post prandial dinner values; advised to watch diet and will follow up next week 10/21/20230239-MUQ-nelyast stable (< 50 % elevated) Last Assessment [...] money to get more. Never true 08/16/2023 [place] Depression Scale Answer Date Recorded [place] Depression Scale Total 13 06/04/2023 The thought [...] Cephalic presentation. I reviewed the ultrasound images. Sophie was given the opportunity to meet with [...] Care Team (Late st Contact Info) Description 11/21/2023 8:45 AM EDT Imaging Maternal Medicine Imaging, [facility] [address] [facility] [place] [phone] Health Maintenance Due Date Last Done Comments [...] incidental documented in this encounter Care Teams Developmental Psychologist Relationship Specialty Start Date End Date Lainey Troy DO [address] [place] [address] [place] [address] PCP - General Internal Medicine 07/09/16 documented as of this encounter
--- OUTSIDE RECORDS SUMMARY | 2023-11-05 21:02 | External Medical Summary | Summary of Care ---
Author Name Unknown Organization [facility] Address [address] [place] [address] Phone [phone] Care Team Providers Care Registrar [employer] Name Role Phone Woodrow Lainey Tran LUNA Primary Care Provider [phone] Encounter Details Date Type Department Care Team (Late st Contact Info) Description 10/23/2023 3:15 PM EDT Telemedicine Orthopaedics [facility] [address] [place] [address] Praveen Begum PA-C [address] [place] [address] Sacroiliac joint dysfunction of right side* Allergies No known active allergiesdocumented as of this encounter (statuses as of 10/23/2023) Medications Medication Sig Dispensed Refills Start Date [...] Capsule Therapy Pack Take by mouth. Active [employer] Flex System w/Device KitIndications:Diet controlled gestational diabetes mellitus (GDM) in second trimester Use to test blood sugars 4 times daily (fasting, 1 hour after breakfast, lunch, and dinner) 1 Kit 07/11/2023 Active [employer] In Vitro Strip (Glucose Blood)Indications:D iet controlled gestational diabetes mellitus (GDM) in second trimester Use to test blood sugars 4 times daily (fasting, 1 hour after breakfast, lunch, and dinner) 125 Strip 6 07/11/2023 Active [employer] Lancets 30GIndications:Diet controlled gestational diabetes mellitus (GDM) [...] as of this encounter (statuses as of 10/23/2023) Active Problems Problem Noted Date Diagnosed Date [...] contact for RPM. Message sent to the [facility] to schedule FU ADAPT 07/23/23: RPM reviewed; Elevated FBS and PP's. Msg to [facility] to schedule ADAPT visit. Nutrition visit schedule 08/02/23. 07/25/23: ADAPT visit complete; elevated FBS and some PP values; patient deferred starting insulin but agreeable to Metformin; ordered Metformin 500mg PO daily with evening meal/snack; recommend fasting 8-10 hours overnight along with having a bedtime snack of 30g CHO paired with protein; recommend keeping food log; patient aware of upcoming Nutrition visit 07/29/20236899-SFU-eoycpoq stable. Multiple missed readings; encouraged to test and report as instructed. 08/05/20234419-NDW-wmitjdho post prandial lunch and dinner values. Maternal medicine nurse practitioners to review. 08/05/23: RPM reviewed; PP elevations; increase to Metformin 500mg PO with breakfast and evening meal/snack 08/06/23: HgbA1c 5.5% 08/09/23: RPM message received - patient reporting GI symptoms; recommend F/U ADAPT to discuss possibility of switching to insulin; awaiting patient response back 08/12/20234109-JVI-zzemjhwt elevated fasting blood sugars and post prandial values. Patient agreeable to follow up ADAPT appointment. [facility] PARs messaged to schedule. 08/14/23: ADAPT follow-up [...] can discuss switching to insulin if needed. 08/19/20238359-QWI-zbjqcvg stable (< 50% elevated) 08/26/2023-RPM-3 elevated fasting [...] lunch and the 1000 mg at bedtime. 09/30/20234365-ATG-meenrfkp 4 of the past 7 days; overall stable. Messaged to be consistent with testing/reporting four times daily 10/07/20231931-OSK-pajkzpd stable (< 50% elevated) 10/14/20230192-ZDM-zaubrsu stable. 3 of 7 elevated post prandial dinner values; advised to watch diet and will follow up next week 10/21/20238569-RUL-gsmobzj stable (< 50 % elevated) Last Assessment [...] as of this encounter (statuses as of 10/23/2023) Resolved Problems Problem Noted Date Diagnosed Date Resolved Date Abnormal glucose tolerance i n mother complicating 07/02/2023 07/11/2023 Overview: Elevated early 1 hr GTT, 3 hr testing ordered at 14 weeks documented as of this encounter (statuses as of 10/23/2023) Immunizations Name Administration Dates Next Due DT [...] , (FluLaval or Fluzone) 03/14/2018 Seasonal Influenza, Split, I IV3, With Preserve, Inj 02/13/2011,12/13/2008 TDAP, Age 7 and older, IM [...] money to get more. Never true 08/16/2023 [place] Depression Scale Answer Date Recorded [place] Depression Scale Total 13 06/04/2023 The thought [...] as of this encounter Progress Notes * Praveen Begum PA-C - 10/23/2023 3:01 PM EDT After connecting to the patient via telephone, the patient was identified by name and date of . Patient was then informed that this was a telephone call only visit. The patient agreed to participate. Visit Disposition: Routine follow-up Total call duration was 3 minutes. Six week telephonic visit to discuss results regarding right-sided sacroiliitis. The patient statesthat her symptoms are gradually improving. She is expecting mother at 30 weeks and we discussed notjudging those symptoms until after delivering. Any unrelenting or worsening symptoms in the near future or even and we would determine if the patient is a candidate for an SI joint injection. The patient is aware and in agreement. She would like to call as needed and I feel that is appropriate. Would certainly see her back sooner upon her request. Satisfied with today's phone call This chart was completed in part utilizing [employer] Speech Voice Recognition Software. Grammatical errors, random word insertions, prounoun errors, and incomplete sentences are an occasional consequence of this system due to software limitations, ambient noise, and hardware issues. Any formal questions or concerns about the content, text, or information contained within the body of this dictation should be directly addressed to the provider for clarification. documented in this encounter Plan of Treatment Upcoming Encounters Date Type Department Care Team (Late st Contact Info) Description 10/24/2023 1:00 PM EDT Imaging Maternal Medicine Imaging, [place] Man [facility] [address] [place] [phone] 10/24/2023 1:00 PM EDT Office Visit [place] Obstetrics Maternal Medicine, Lizeth Man [facility] [address] [place] [address] Marbella Fowler, DO [address] [facility] [address] 10/24/2023 2:15 PM EDT Office Visit Gynecology/Obstetrics Jasmin Man [address] [place] [address] Sobia Gould CRNP [address] [place] [address] 11/21/2023 8:45 AM EDT Imaging Maternal Medicine [facility] [place] [address] Health Maintenance Due Date [...] as of this encounter Visit Diagnoses Diagnosis Sacroiliac joint dysfunction of right side- Primary Disorders of sacrum documented in this encounter Care Teams Registrar [employer] Relationship Specialty Start Date End Date Lainey Troy DO [address] [place] [address] [place] [address] PCP - General Internal Medicine 07/09/16 documented as of this encounter
--- OUTSIDE RECORDS SUMMARY | 2023-11-05 21:03 | External Medical Summary | Summary of Care ---
Author Name Unknown Organization [facility] Address [address] [place] [address] Phone [phone] Care Team Providers Care Mangle Press Catcher Name Role Phone Stephon Troyanda Tran LUNA Primary Care Provider Reason for Visit * Reason Comments Return Visit Encounter Details Date Type Department Care Team (Late st Contact Info) Description 09/27/2023 4:15 PM EDT Office Visit Gynecology/Obstetric s [facility] [address] [place] [address] Tanna Aguilar, [facility] [address] [place] [address] Supervision of high-risk , second trimester*; Gestational diabetes mellitus (GDM) controlled on oral hypoglycemic drug, antepartum; Fibromyalgia; Supervision of normal first , antepartum; Obesity during in second trimester; Tobacco smoking affecting in second trimester; Blood pressure elevated without history of HTN; Class 1 obesity Allergies No known active allergiesdocumented as of this encounter (statuses as of 09/27/2023) Medications Medication Sig Dispensed Refills Start Date [...] the tablet. 30 Tablet 5 12/05/2022 Active Cyclobenzaprine HCl 10 MG Oral Tablet (Flexeril) Take 1 Tablet by mouth at bedtime as needed for Muscle spasms. 30 Tablet 2 03/12/2023 Active Ondansetron HCl 8 MG Oral Tablet 1 tablet by mouth every 8 hours as needed for nausea and/or vomiting 30 Tablet 1 05/21/2023 Active Complete Oral Capsule Therapy Pack Take by mouth. Active [employer] Flex System w/Device KitIndications:Diet controlled gestational diabetes mellitus (GDM) in second trimester Use to test blood sugars 4 times daily (fasting, 1 hour after breakfast, lunch, and dinner) 1 Kit 07/11/2023 Active [employer] In Vitro Strip (Glucose Blood)Indications:D iet controlled gestational diabetes mellitus (GDM) in second trimester Use to test blood sugars 4 times daily (fasting, 1 hour after breakfast, lunch, and dinner) 125 Strip 6 07/11/2023 Active [employer] Delica Lancets 30GIndications:Diet controlled gestational diabetes mellitus [...] hours apart. 90 Tablet 1 08/26/2023 Active documented as of this encounter (statuses as of 09/27/2023) Active Problems Problem Noted Date Diagnosed Date [...] contact for RPM. Message sent to the [facility] to schedule FU ADAPT 07/23/23: RPM reviewed; [...] log; patient aware of upcoming Nutrition visit 07/29/20237947-ABD-rudrkjh stable. Multiple missed readings; encouraged to test and report as instructed. 08/05/20239833-NOT-mwsqwrpr post prandial lunch and dinner values. Maternal medicine nurse practitioners to review. 08/05/23: RPM reviewed; PP elevations; increase to Metformin 500mg PO with breakfast and evening meal/snack 08/06/23: HgbA1c 5.5% 08/09/23: RPM message received - patient reporting GI symptoms; recommend F/U ADAPT to discuss possibility of switching to insulin; awaiting patient response back 08/12/20231001-TLL-agewrosw elevated fasting blood sugars and post prandial values. Patient agreeable to follow up ADAPT appointment. [facility] PARs messaged to schedule. 08/14/23: ADAPT follow-up [...] can discuss switching to insulin if needed. 08/19/20235076-EJK-ugqthkv stable (< 50% elevated) 08/26/2023-RPM-3 elevated fasting [...] lunch and the 1000 mg at bedtime. Last Assessment & Plan: Working with YINA. Supervision of normal first , antepartu m [...] as of this encounter (statuses as of 09/27/2023) Resolved Problems Problem Noted Date Diagnosed Date Resolved Date Abnormal glucose tolerance i n mother complicating 07/02/2023 07/11/2023 Overview: Elevated early 1 hr GTT, 3 hr testing ordered at 14 weeks documented as of this encounter (statuses as of 09/27/2023) Immunizations Name Administration Dates Next Due DT [...] money to get more. Never true 08/16/2023 [place] Depression Scale Answer Date Recorded [place] Depression Scale Total 13 06/04/2023 The thought [...] Sign Reading Time Taken Comments Blood Pressure 126/72 09/27/2023 4:08 PM EDT Pulse - - Temperature - - Respiratory Rate - - Oxygen Saturation - - Inhaled Oxygen Concentration - - Weight 89.8 kg (198 lb) 09/27/2023 4:08 PM EDT Height - - Body Mass Index 32.95 08/02/2023 4:11 PM EDT documented in this encounter Progress Notes * Tanna Aguilar CNM - 09/27/2023 4:15 PM EDT Sophie Emmanuel is a 33 year old female here for her routine OB appointment at 26w4d Her Estimated Date of Delivery: 12/30/23 REVIEW OF SYSTEMS: She affirms movement. Denies vaginal bleeding, LOF, contractions, N/V, vision changes. Occasional mild headaches about once weekly. Reports RUQ pain for a few weeks, happening almost allthe time. Went to the ED recently for low back pain. She was given ABX for a UTI. Saw ortho and was told it may be SI joint dysfunction from . Takes PNV, Flexeril as needed, 81mg aspirin, Protonix, Tums, Prisolec. No MH concerns. PHYSICAL EXAM: Filed Vitals: 09/27/23 1608 BP: 126/72 Weight: 89.8 kg (198 lb) +FHT 150-160 bpm Fundal height: 28cm ASSESSMENT/PLAN: (O24.415) Gestational diabetes mellitus (GDM) controlled on oral hypoglycemic drug, antepartum Plan: -Takes Metformin 1000mg PO BID (O09.92) Supervision of high-risk , second trimester (primary encounter diagnosis) Plan: - reviewed and ordered CBC, and syphilis screen for patient to complete between now and her next visit - added CMP to her 28 week labs due to concern for RUQ pain - reviewed recommendation for Tdap vaccine at next visit -Repeat urine culture today - RTO in 4 weeks Tanna Aguilar CNM documented in this encounter Nursing Notes * Keely Negron LPN - 09/27/2023 4:14 PM EDT 26w4d Denies vaginal bleeding/rom + movement No new concerns documented in this encounter Plan of Treatment Upcoming Encounters Date Type Department Care Team (Late st Contact Info) Description 10/23/2023 3:15 PM EDT Telemedicine Orthopaedics [facility] [address] [place] [address] Praveen Begum PA-C [address] [place] [address] 10/24/2023 1:00 PM EDT Imaging Maternal Medicine Imaging, [facility] [address] [place] [phone] 11/21/2023 8:45 AM EDT Imaging Maternal Medicine Imaging, [place] [address] [address] [place] [phone] Pending Results Name Type Priority Associated Diagnoses Date /Time CULTURE, URINE, QUANTITATIVE Lab Routine Supervision of high-risk , second trimester 09/27/2023 4:38 PM EDT Scheduled Orders Name Type Priority Associated Diagnoses Orde r Schedule CBC WITH WBC DIFFERENTIAL AND ANEMIA REFLEX WORKUP Lab Routine Supervision of high-risk , second trimester Expected: 10/11/2023 (Approximate), Expires: 09/26/2024 SYPHILIS ANTIBODY SCREEN WITH REFLEX TO RPR Lab Routine Supervision of high-risk , second trimester Expected: 10/11/2023 (Approximate), Expires: 09/26/2024 COMPREHENSIVE METABOLIC PANEL Lab Routine Supervision of high-risk , second trimester Ordered: 09/27/2023 Health Maintenance Due Date Last Done Comments Pneumococcal Vaccine: Pediatrics (0 to 5 Years) and At-Risk Patients (6 to 64 Years) (2 of 2 - PCV) 07/09/2017 07/09/2016 DTaP,Tdap,and Td Vaccines (7 - Td or Tdap) 07/26/2020 [...] this encounter Visit Diagnoses Diagnosis Supervision of high-risk , second trimester- Primary Gestational diabetes mellitus (GDM) controlled on oral hypoglycemic drug, antepartum Fibromyalgia Mylagia and myositis, unspecified Supervision of normal first , antepartum Obesity during in second trimester Tobacco smoking affecting in second trimester Blood pressure elevated without history of HTN Elevated blood pressure reading without diagnosis of hypertension Class 1 obesity documented in this encounter Care Teams Mangle Press Catcher Relationship Specialty Start Date End Date Lainey Troy DO [address] [place] [address] [place] [address] PCP - General Internal Medicine 07/09/16 documented as of this encounter
--- OUTSIDE RECORDS SUMMARY | 2023-11-05 21:03 | External Medical Summary | Summary of Care ---
Author Name Unknown Organization [facility] Address [address] [place] [address] Phone [phone] Care Team Providers Care Offset Proof Press Operator Name Role Phone Stephon Troyanda Tran LUNA Primary Care Provider Encounter Details Date Type Department Care Team (Late st Contact Info) Description 07/23/2023 Telephone Airplane Tube Builder Obstetrics Maternal Medicine, [facility] [address] [place] [address] [place], Nurse Airplane Tube [facility] [address] [place] [address] Allergies No known active allergiesdocumented as of this encounter (statuses as of 10/22/2023) Medications Medication Sig Dispensed Refills Start Date [...] Capsule Therapy Pack Take by mouth. Active [employer] Flex System w/Device KitIndications:Diet controlled gestational diabetes mellitus (GDM) in second trimester Use to test blood sugars 4 times daily (fasting, 1 hour after breakfast, lunch, and dinner) 1 Kit 07/11/2023 Active [employer] In Vitro Strip (Glucose Blood)Indications: t controlled gestational diabetes mellitus (GDM) in second trimester Use to test blood sugars 4 times daily (fasting, 1 hour after breakfast, lunch, and dinner) 125 Strip 6 07/11/2023 Active [employer] Delica Lancets 30GIndications:Diet controlled gestational diabetes mellitus (GDM) in second trimester Use to test blood sugars 4 times daily (fasting, 1 hour after breakfast, lunch, and dinner) 200 Each 6 07/11/2023 Active documented as of this encounter (statuses as of 10/22/2023) Active Problems Problem Noted Date Diagnosed Date Supervision of high-risk , [facility] 07/16/2023 Blood pressure elevated without history of [...] for RPM. Message sent to the [facility] to schedule FU ADAPT 07/23/23: RPM reviewed; Elevated FBS and PP's. Msg to [facility] to schedule ADAPT visit. [...] log; patient aware of upcoming Nutrition visit 07/29/20233010-NYT-mbwkrvt stable. Multiple missed readings; encouraged to test and report as instructed. 08/05/20230528-BRI-dfrxatqx post prandial lunch and dinner values. Maternal medicine nurse practitioners to review. 08/05/23: RPM reviewed; PP elevations; increase to Metformin 500mg PO with breakfast and evening meal/snack 08/06/23: HgbA1c 5.5% 08/09/23: RPM message received - patient reporting GI symptoms; recommend F/U ADAPT to discuss possibility of switching to insulin; awaiting patient response back 08/12/20238363-TWR-jmkswwxk elevated fasting blood sugars and post prandial [...] can discuss switching to insulin if needed. 08/19/20236772-QWZ-gccvdoy stable (< 50% elevated) 08/26/2023-RPM-3 elevated fasting [...] lunch and the 1000 mg at bedtime. 09/30/20231363-KOO-wtzxmvid 4 of the past 7 days; overall stable. Messaged to be consistent with testing/reporting four times daily 10/07/20238003-FCN-njyoeql stable (< 50% elevated) 10/14/20237232-MQN-hyatstz stable. 3 of 7 elevated post prandial dinner values; advised to watch diet and will follow up next week 10/21/20232900-TJF-lhpdzxi stable (< 50 % elevated) Last Assessment [...] as of this encounter (statuses as of 10/22/2023) Resolved Problems Problem Noted Date Diagnosed Date Resolved Date Abnormal glucose tolerance i n mother complicating 07/02/2023 07/11/2023 Overview: Elevated early 1 hr GTT, 3 hr testing ordered at 14 weeks documented as of this encounter (statuses as of 10/22/2023) Immunizations Name Administration Dates Next Due DT [...] money to get more. Never true 08/16/2023 [place] Depression Scale Answer Date Recorded [place] Depression Scale Total 13 06/04/2023 The thought [...] No 08/16/2023 Does the household have a [facility] source of income? (Household - for ages [...] Encounter - Maria E Chauhan OSA - 07/24/2023 9:21 AM EDT Spoke with Sophie. Appointment scheduled. Patient aware of date, time and location of Maternal FetalMedicine appointment. * Telephone Encounter - Maria E Chauhan OSA - 07/23/2023 3:06 PM EDT Phone call to patient. Left message on [employer]'s voice mail. [facility]our[facility] Sent MyG * Telephone Encounter - Maria E Chauhan OSA - 07/23/2023 3:06 PM EDT ----- Message from Janay Lopez sent at 07/23/2023 3:00 PM EDT ----- Regarding: Schedule adapt visit Please schedule patient for 30 minute ADAPT visit with first available Stephanie Esteves documented in this encounter Plan of Treatment Upcoming Encounters Date Type Department Care Team (Late st Contact Info) Description 10/23/2023 3:15 PM EDT [facility]medicine [facility] [address] [place] [address] Praveen Begum PA-C [address] [place] [address] 10/24/2023 1:00 PM EDT Imaging Maternal Medicine Imaging, [facility] [address] [place] [phone] 10/24/2023 2:15 PM EDT Office Visit Gynecology/Obstetrics [facility] [address] [place] [address] Sobia Gould CRNP [address] [place] [address] 11/21/2023 8:45 AM EDT Imaging Maternal Medicine Imaging, [facility] [address] [place] [phone] Health Maintenance Due Date Last Done Comments Pneumococcal Vaccine: Pediatrics (0 to 5 Years) and At-Risk Patients (6 to 64 Years) (2 of 2 - PCV) 07/09/2017 07/09/2016 DTap/Tdap Vaccines (7 - Td or Tdap) 07/26/2020 07/26/2010, 05/09/2004, 06/18/1996, Additional history exists Depression Screening 05/31/2021 05/31/2020 COVID-19 Vaccine (1 - season) 2022 Influenza Vaccine (FLU shot) [...] filedocumented as of this encounter Care Teams Offset Proof Press Operator Relationship Specialty Start Date End Date Lainey Troy DO [address] [place] [address] [place] [address] PCP - General Internal Medicine 07/09/16 documented as of this encounter
--- OUTSIDE RECORDS SUMMARY | 2023-11-05 21:03 | External Medical Summary | Summary of Care ---
Author Name Unknown Organization [facility] Address [address] [place] [address] Phone [phone] Care Team Providers Care Filter Worker Name Role Phone Woodrow Lainey Mayfield Primary Care Provider [phone] Encounter Details Date Type Department Care Team (Late st Contact Info) Description 10/23/2023 Patient Reported Data Patient Survey Ortho [facility] Allergies No known active allergiesdocumented as of [...] Capsule Therapy Pack Take by mouth. Active [employer] Flex System w/Device KitIndications:Diet controlled gestational diabetes mellitus (GDM) in second trimester Use to test blood sugars 4 times daily (fasting, 1 hour after breakfast, lunch, and dinner) 1 Kit 07/11/2023 Active [employer] In Vitro Strip (Glucose Blood)Indications:D iet controlled gestational diabetes mellitus (GDM) in second trimester Use to test blood sugars 4 times daily (fasting, 1 hour after breakfast, lunch, and dinner) 125 Strip 6 07/11/2023 Active [employer] Delica Lancets 30GIndications:Diet controlled gestational diabetes mellitus [...] contact for RPM. Message sent to the [facility] to schedule FU ADAPT 07/23/23: RPM reviewed; Elevated FBS and PP's. Msg to [facility] to schedule ADAPT visit. [...] log; patient aware of upcoming Nutrition visit 07/29/20237642-OMI-hxkfpkk stable. Multiple missed readings; encouraged to test and report as instructed. 08/05/20234638-RYJ-jjvlsqfj post prandial lunch and dinner values. Maternal medicine nurse practitioners to review. 08/05/23: RPM reviewed; PP elevations; increase to Metformin 500mg PO with breakfast and evening meal/snack 08/06/23: HgbA1c 5.5% 08/09/23: RPM message received - patient reporting GI symptoms; recommend F/U ADAPT to discuss possibility of switching to insulin; awaiting patient response back 08/12/20233769-BJR-nesufelh elevated fasting blood sugars and post prandial values. Patient agreeable to follow up ADAPT appointment. [facility] messaged to schedule. 08/14/23: ADAPT follow-up [...] can discuss switching to insulin if needed. 08/19/20234882-FVQ-bgqnork stable (< 50% elevated) 08/26/2023-RPM-3 elevated fasting [...] lunch and the 1000 mg at bedtime. 09/30/20235613-YQL-wzryygmb 4 of the past 7 days; overall stable. Messaged to be consistent with testing/reporting four times daily 10/07/20235532-PRY-eiwcaly stable (< 50% elevated) 10/14/20234734-XRR-baovvoa stable. 3 of 7 elevated post prandial dinner values; advised to watch diet and will follow up next week 10/21/20238219-ZAZ-bvxzpwt stable (< 50 % elevated) Last Assessment [...] money to get more. Never true 08/16/2023 [place] Depression Scale Answer Date Recorded [place] Depression Scale Total 13 06/04/2023 The thought [...] No 08/16/2023 Does the [facility] have a [facility]? (Household - for ages [...] on file documented as of this encounter Plan of Treatment Upcoming Encounters Date Type Department Care Team (Late st Contact Info) Description 10/23/2023 3:15 PM EDT Telemedicine Orthopaedics [facility] [address] [place] [address] Praveen Begum PA-C [address] [place] [address] 10/24/2023 1:00 PM EDT Imaging Maternal Medicine Imaging, [facility] [address] [place] [phone] 10/24/2023 2:15 PM EDT Office Visit Gynecology/Obstetrics [facility] [address] [place] [address] Sobia Gould CRNP [address] [place] [address] 11/21/2023 8:45 AM EDT Imaging Maternal Medicine Imaging, [facility] [address] [place] [phone] Health Maintenance Due Date Last Done Comments [...] filedocumented as of this encounter Care Teams Filter Worker Relationship Specialty Start Date End Date Lainey Troy DO [address] [place] [address] [place] [address] PCP - General Internal Medicine 07/09/16 documented as of this encounter
--- OUTSIDE RECORDS SUMMARY | 2023-11-05 21:03 | External Medical Summary ---
Author Name Unknown Address Unknown Organization K01:LABOR[facility]ORY [facility] - [address] [facility] [address] Laboratory Report Ordering Provider Test Date Status CLARA SCHAEFFER 10/03/2023 07:29:12 Final Observation Date Value Abnormality Reference (Units ) Status Treponema pallidum Ab [Presence] in Serum by Immunoassay 10/03/2023 07:29:12 Nonreactive Nonreactive Final No serologic evidence of syp hilis. No additional testing clinicially indicated at this time. Consider repeat testing in 2-4 weeks if acute or primary syphilis is suspected. Performing Location LAB[facility] - [address] [place] [address]
--- OUTSIDE RECORDS SUMMARY | 2023-11-05 21:03 | External Medical Summary | Summary of Care ---
Author Name Unknown Organization [facility] Address [address] [place] [address] Phone [phone] Care Team Providers Care Vacuum Cooker Operator Name Role Phone Stephon Troyanda Tran LUNA Primary Care Provider Encounter Details Date Type Department Care Team (Late st Contact Info) Description 07/19/2023 Telephone Streetsweeper Operator Obstetrics Maternal Medicine, [place] [address] [place] [address] [place], Nurse Streetsweeper Operator [facility] [address] [place] [address] Allergies No known active allergiesdocumented as of this encounter (statuses as of 10/18/2023) Medications Medication Sig Dispensed Refills Start Date [...] Capsule Therapy Pack Take by mouth. Active [employer] Flex System w/Device KitIndications:Diet controlled gestational diabetes mellitus (GDM) in second trimester Use to test blood sugars 4 times daily (fasting, 1 hour after breakfast, lunch, and dinner) 1 Kit 07/11/2023 Active [employer] In Vitro Strip (Glucose Blood)Indications: t controlled gestational diabetes mellitus (GDM) in second trimester Use to test blood sugars 4 times daily (fasting, 1 hour after breakfast, lunch, and dinner) 125 Strip 6 07/11/2023 Active [employer] Delica Lancets 30GIndications:Diet controlled gestational diabetes mellitus (GDM) in second trimester Use to test blood sugars 4 times daily (fasting, 1 hour after breakfast, lunch, and dinner) 200 Each 6 07/11/2023 Active documented as of this encounter (statuses as of 10/18/2023) Active Problems Problem Noted Date Diagnosed Date Supervision of high-risk , [facility] 07/16/2023 Blood pressure elevated without history [...] contact for RPM. Message sent to the [facility] to schedule FU ADAPT 07/23/23: RPM reviewed; Elevated FBS and PP's. Msg to [facility] to schedule ADAPT visit. Nutrition visit schedule 08/02/23. 07/25/23: ADAPT visit complete; elevated FBS and some PP values; patient deferred starting insulin but agreeable to Metformin; ordered Metformin 500mg PO daily with evening meal/snack; recommend fasting 8-10 hours overnight along with having a bedtime snack of 30g CHO paired with protein; recommend keeping food log; patient aware of upcoming Nutrition visit 07/29/20237108-XSG-xvgnqqp stable. Multiple missed readings; encouraged to test and report as instructed. 08/05/20238434-MTB-bexjtcqk post prandial lunch and dinner values. Maternal medicine nurse practitioners to review. 08/05/23: RPM reviewed; PP elevations; increase to Metformin 500mg PO with breakfast and evening meal/snack 08/06/23: HgbA1c 5.5% 08/09/23: RPM message received - patient reporting GI symptoms; recommend F/U ADAPT to discuss possibility of switching to insulin; awaiting patient response back 08/12/20232305-VXG-slyajlzr elevated fasting blood sugars and post prandial values. Patient agreeable to follow up ADAPT appointment. [facility] [place]aged to schedule. 08/14/23: ADAPT follow-up [...] can discuss switching to insulin if needed. 08/19/20235027-CMN-fccbbpm stable (< 50% elevated) 08/26/2023-RPM-3 elevated fasting [...] lunch and the 1000 mg at bedtime. 09/30/20237351-UUM-rcbyqekx 4 of the past 7 days; overall stable. Messaged to be consistent with testing/reporting four times daily 10/07/20233924-XQA-grywvoy stable (< 50% elevated) 10/14/20237051-MTL-qwzroeq stable. 3 of 7 elevated post prandial dinner values; advised to watch diet and will follow up next week Last Assessment & Plan: Working with ADAPT. [...] as of this encounter (statuses as of 10/18/2023) Resolved Problems Problem Noted Date Diagnosed Date Resolved Date Abnormal glucose tolerance i n mother complicating 07/02/2023 07/11/2023 Overview: Elevated early 1 hr GTT, 3 hr testing ordered at 14 weeks documented as of this encounter (statuses as of 10/18/2023) Immunizations Name Administration Dates Next Due DT - Diptheria/Tetanus (PEDS) 05/09/2004 DTP Vaccine 06/18/1996,,12/29/1993,08/04 HIB PRP-OMP, 3 dose (Pedvax) 12/29/2010,03/21/18 96,08/04/1992 [...] money to get more. Never true 08/16/2023 Gipsy Depression Scale Answer Date Recorded G[place]y Depression Scale Total 13 06/04/2023 The thought [...] - Maria E Chauhan OSA - 07/23/2023 8:32 AM EDT Phone call to patient. Left message on [facility]'s voice mail. Encouraged patient to return call to [facility] assist with scheduling. * Telephone Encounter - Maria E Chauhan OSA - 07/19/2023 1:09 PM EDT Phone call to patient. Left message on [facility]'s voice mail. [facility] Sent MyG * Telephone Encounter - Maria E Chauhan OSA - 07/19/2023 1:08 PM EDT ----- Message from Ileana Dimas sent at 07/19/2023 1:02 PM EDT ----- Regarding: Needs FU ADAPT (please call) Tx, Please schedule Ms. Emmanuel for a 30 minute ADAPT follow up to further manage gestational diabetes atthe patient's earliest convenience. Thank you, NELDA Tariq documented in this encounter Plan of Treatment Upcoming Encounters Date Type Department Care Team (Late st Contact Info) Description 10/23/2023 3:15 PM EDT Telemedicine Orthopaedics Jas[facility] [address] [place] [address] Praveen Begum PA-C [address] [place] [address] 10/24/2023 1:00 PM EDT Imaging Maternal Medicine Imaging Lizeth Chengs [address] [place] [phone] 10/24/2023 2:15 PM EDT Office Visit Gynecology/Obstetrics Jasmin [facility] [address] [place] [address] Sobia Gould CRNP [address] [place] [address] 11/21/2023 8:45 AM EDT Imaging Maternal Medicine Imaging Lizeth Man [address] [place] [phone] Health Maintenance Due Date Last Done Comments [...] filedocumented as of this encounter Care Teams Vacuum Cooker Operator Relationship Specialty Start Date End Date Lainey Troy DO [address] [place] [address] [place] [address] PCP - General Internal Medicine 07/09/16 documented as of this encounter
--- OUTSIDE RECORDS SUMMARY | 2023-11-05 21:03 | External Medical Summary ---
Author Name Unknown Address Unknown Organization K01:[facility] - [address] [place] [address] Laboratory Report Ordering Provider Test Date Status CLARA SCHAEFFER 10/03/2023 07:29:12 Final Observation Date Value Abnormality Reference (Units ) Status WBC, Total 10/03/2023 07:29:12 16.66 Above high normal 4 .00-10.80 (K/uL) Final RBC 10/03/2023 07:29:12 4.27 3.85-5.15 (M/uL) Final Hemoglobin 10/03/2023 07:29:12 13.2 12.0-15.3 (g/dL) Final Anemia reflex testing trigge rs on a HGB < 12.0 for Females and HGB < 13.0 for Males in accordance with the WHO Anemia Guidelines
Anemia reflex testing triggers on a HGB < 12.0 for Females and HGB < 13.0 for Males in accordance with the WHO Anemia Guidelines HCT 10/03/2023 07:29:12 38.7 36.0-45.2 (%) Final MCV 10/03/2023 07:29:12 90.6 81.5-97.5 (fL) Final MCH 10/03/2023 07:29:12 30.9 27.0-34.0 (pg) Final MCHC 10/03/2023 07:29:12 34.1 32.0-36.0 (g/dL) Final RDW 10/03/2023 07:29:12 14.3 11.5-15.5 (%) Final Platelets 10/03/2023 07:29:12 340 140-400 (K /uL) Final MPV 10/03/2023 07:29:12 12.1 6.6-11.1 ( fL) Final Nucleated erythrocytes/100 leukocytes [Ratio] in Blood by Automated count 10/03/2023 07:29:12 0 <=0 (/100 WBCs) Fi [facility] Performing Location [facility] - [address] [facility] [address]
--- OUTSIDE RECORDS SUMMARY | 2023-11-05 21:03 | External Medical Summary | Summary of Care ---
Author Name Unknown Organization [facility] Address [address] [place] [address] Phone [phone] Care Team Providers Care Collective Bargaining Specialist Name Role Phone Lainey Troy Primary Care Provider Reason for Visit * Reason Onset Date Comments Advice 10/11/[address] Kirt vallejo Encounter Details Date Type Department Care Team (Late st Contact Info) Description 10/11/2023 Telephone Gynecology/Obstetrics [facility] [address] [place] [address] Marni Jones MD [address] [place] [address] Advice (Rev with Dr. Jones) Allergies No known active allergiesdocumented as of this encounter (statuses as of 10/11/2023) Medications Medication Sig Dispensed Refills Start Date [...] Capsule Therapy Pack Take by mouth. Active [employer] Verio Flex System w/Device KitIndications:Diet controlled gestational diabetes mellitus (GDM) in second trimester Use to test blood sugars 4 times daily (fasting, 1 hour after breakfast, lunch, and dinner) 1 Kit 07/11/2023 Active [employer] app [employer] In Vitro Strip (Glucose Blood)Indications:D iet controlled gestational diabetes mellitus (GDM) in second trimester Use to test blood sugars 4 times daily (fasting, 1 hour after breakfast, lunch, and dinner) 125 Strip 6 07/11/2023 Active [employer] app Delica Lancets 30GIndications:Diet controlled gestational diabetes mellitus [...] as of this encounter (statuses as of 10/11/2023) Active Problems Problem Noted Date Diagnosed Date [...] contact for RPM. Message sent to the [facility] to schedule FU ADAPT 07/23/23: RPM reviewed; Elevated FBS and PP's. Msg to [facility] to schedule ADAPT visit. Nutrition visit schedule 08/02/23. 07/25/23: ADAPT visit complete; elevated FBS and some PP values; patient deferred starting insulin but agreeable to Metformin; ordered Metformin 500mg PO daily with evening meal/snack; recommend fasting 8-10 hours overnight along with having a bedtime snack of 30g CHO paired with protein; recommend keeping food log; patient aware of upcoming Nutrition visit 07/29/20233863-JEL-krgqeas stable. Multiple missed readings; encouraged to test and report as instructed. 08/05/20233343-OLM-ejnhjmnk post prandial lunch and dinner values. Maternal medicine nurse practitioners to review. 08/05/23: RPM reviewed; PP elevations; increase to Metformin 500mg PO with breakfast and evening meal/snack 08/06/23: HgbA1c 5.5% 08/09/23: RPM message received - patient reporting GI symptoms; recommend F/U ADAPT to discuss possibility of switching to insulin; awaiting patient response back 08/12/20232610-EKJ-liqaswsd elevated fasting blood sugars and post prandial values. Patient agreeable to follow up ADAPT appointment. [facility] [place] to schedule. 08/14/23: ADAPT follow-up [...] can discuss switching to insulin if needed. 08/19/20230832-RSD-qfgfndu stable (< 50% elevated) 08/26/2023-RPM-3 elevated fasting [...] lunch and the 1000 mg at bedtime. 09/30/20233541-LIY-clkogyic 4 of the past 7 days; overall stable. Messaged to be consistent with testing/reporting four times daily 10/07/20239307-RWV-pkzzgww stable (< 50% elevated) Last Assessment & Plan: Working with [...] as of this encounter (statuses as of 10/11/2023) Resolved Problems Problem Noted Date Diagnosed Date Resolved Date Abnormal glucose tolerance i n mother complicating 07/02/2023 07/11/2023 Overview: Elevated early 1 hr GTT, 3 hr testing ordered at 14 weeks documented as of this encounter (statuses as of 10/11/2023) Immunizations Name Administration Dates Next Due DT [...] money to get more. Never true 08/16/2023 Warren Depression Scale Answer Date Recorded Warren Depression Scale Total 13 06/04/2023 The thought [...] encounter Miscellaneous Notes * Telephone Encounter - Maryan Andrew RN - 10/11/2023 11:56 AM EDT Pt aware. She will call back with any changes. * Telephone Encounter - Marni Jones MD - 10/11/2023 11:26 AM EDT First, pt has to be careful climbing up and down the Stairs. Next, belly is not hurt, pt should monitor for any bleeding, contractions , leaking etc. At this point, no intervention needed but use cold pack on the tail bone if needed and use tylenol for pian asneeded. * Telephone Encounter - Maryan Andrew RN - 10/11/2023 9:13 AM EDT Pt just slipped on her steps. She didn't hit her belly. Hit her tailbone area. Denies any belly pain. No bleeding. + FM. Will review with Dr. Jones. documented in this encounter Plan of Treatment Upcoming Encounters Date Type Department Care Team (Late st Contact Info) Description 10/23/2023 3:15 PM EDT Telemedicine Orthopaedics [facility] [address] [place] [phone] Praveen Begum PA-C [address] [place] [address] 10/24/2023 1:00 PM EDT Imaging Maternal Medicine Imaging, [facility] [address] [facility] [address] [place] [phone] 10/24/2023 2:15 PM EDT Office Visit Gynecology/Obstetrics Jasmin Man [address] [place] [address] Sobia Gould CRNP [address] [place] [address] 11/21/2023 8:45 AM EDT Imaging Maternal Medicine [...] filedocumented as of this encounter Care Teams Collective Bargaining Specialist Relationship Specialty Start Date End Date Lainey Troy DO [address] [place] [address] [place] [address] PCP - General Internal Medicine 07/09/16 documented as of this encounter
--- OUTSIDE RECORDS SUMMARY | 2023-11-05 21:03 | External Medical Summary ---
Author Name Unknown Address Unknown Organization K01:[facility] - [address] [facility] [address] Laboratory Report Ordering Provider Test Date Status CLARA SCHAEFFER 10/03/2023 07:29:12 Final Observation Date Value Abnormality Reference (Units ) Status SYNC LEUKOCYTES IN BLOOD BY AUTOMATED COUNT 10/03/2023 07:29:12 16.66 Above high normal 4.00-10.80 (K/uL) Final Segs 10/03/2023 07:29:12 72.2 40.0-75.0 (%) Final Lymphs % 10/03/2023 07:29:12 19.4 18.0-42.0 (%) Final Monos 10/03/2023 07:29:12 5.0 1.0-11.0 (%) Final Eosinophils 10/03/2023 07:29:12 0.4 0.0-6.0 (%) Final Basos 10/03/2023 07:29:12 0.5 0.0-2.0 (%) Final Immature Granulocyte, Percent 10/03/2023 07:29:12 2.5 Above high normal 0.0-2.0 (%) Final Absolute Segs 10/03/2023 07:29:12 12.03 Above high normal 1.80-7.70 (K/uL) Final Lymphs, absolute 10/03/2023 07:29:12 3.23 1.00-4.80 (K/ul) Final Monos, Abs 10/03/2023 07:29:12 0.84 0.00-1.10 (K/uL) Final Eos, Abs 10/03/2023 07:29:12 0.06 0.00-0.70 (K/uL) Final Basos, Abs 10/03/2023 07:29:12 0.08 0.00-0.20 (K/uL) Final Immature Granulocytes, Number 10/03/2023 07:29:12 0.42 Above high normal 0.00-0.20 (K/uL) Final Performing Location LAB[facility]ATORY [facility] - [address] [place] [address]
--- OUTSIDE RECORDS SUMMARY | 2023-11-05 21:03 | External Medical Summary | Summary of Care ---
Author Name Unknown Organization [facility] Address [address] [place] [address] Phone [phone] Care Team Providers Care Varsity Baseball Coach Name Role Phone Woodrow Lainey Mayfield Primary Care Provider [phone] Encounter Details Date Type Department Care Team [...] Capsule Therapy Pack Take by mouth. Active [employer] Flex System w/Device KitIndications:Diet controlled gestational diabetes mellitus (GDM) in second trimester Use to test blood sugars 4 times daily (fasting, 1 hour after breakfast, lunch, and dinner) 1 Kit 07/11/2023 Active [employer]io In Vitro Strip (Glucose Blood)Indications:D iet [...] contact for RPM. Message sent to the [facility] to schedule FU ADAPT 07/23/23: RPM reviewed; Elevated FBS and PP's. Msg to [facility] to schedule ADAPT visit. Nutrition visit schedule 08/02/23. 07/25/23: ADAPT visit complete; elevated FBS and some PP values; patient deferred starting insulin but agreeable to Metformin; ordered Metformin 500mg PO daily with evening meal/snack; recommend fasting 8-10 hours overnight along with having a bedtime snack of 30g CHO paired with protein; recommend keeping food log; patient aware of upcoming Nutrition visit 07/29/20238707-AEH-vrydheh stable. Multiple missed readings; encouraged to test and report as instructed. 08/05/20233171-RYI-jrkkvcmz post prandial lunch and dinner values. Maternal medicine nurse practitioners to review. 08/05/23: RPM reviewed; PP elevations; increase to Metformin 500mg PO with breakfast and evening meal/snack 08/06/23: HgbA1c 5.5% 08/09/23: RPM message received - patient reporting GI symptoms; recommend F/U ADAPT to discuss possibility of switching to insulin; awaiting patient response back 08/12/20235367-OGD-tsqnmyhi elevated fasting blood sugars and post prandial values. Patient agreeable to follow up ADAPT appointment. [facility] messaged to schedule. 08/14/23: ADAPT follow-up [...] can discuss switching to insulin if needed. 08/19/20238359-MLT-bewfkdn stable (< 50% elevated) 08/26/2023-RPM-3 elevated fasting [...] lunch and the 1000 mg at bedtime. 09/30/20230276-QRY-glnopfut 4 of the past 7 days; overall stable. Messaged to be consistent with testing/reporting four times daily 10/07/20235220-GRC-escwbrk stable (< 50% elevated) 10/14/20239252-QUC-qvcxhtp stable. 3 of 7 elevated post prandial dinner values; advised to watch diet and will follow up next week 10/21/20232232-JKG-wstksjq stable (< 50 % elevated) Last Assessment [...] money to get more. Never true 08/16/2023 [place] Depression Scale Answer Date Recorded [place] Depression Scale Total 13 06/04/2023 The thought [...] No 08/16/2023 Does the household have a [facility] source of income? (Household - for ages [...] 10/23/2023 3:15 PM EDT Telemedicine Orthopaedics [facility] [address] [place] [address] Praveen Begum PA-C [address] [address] 10/24/2023 1:00 PM EDT Imaging Maternal Medicine Imaging, Lizeth [facility] [address] [place] [phone] 10/24/2023 2:15 PM EDT Office Visit Gynecology/Obstetrics [facility] [address] [place] [address] Sobia Gould CRNP [address] [place] [address] 11/21/2023 8:45 AM EDT Imaging Maternal Medicine Imaging, Lizeth [facility] [address] [place] [phone] Health Maintenance Due Date Last Done Comments [...] filedocumented as of this encounter Care Teams Varsity Baseball Coach Relationship Specialty Start Date End Date Lainey Troy DO [address] [place] [address] [place] [address] PCP - General Internal Medicine 07/09/16 documented as of this encounter
--- OUTSIDE RECORDS SUMMARY | 2023-11-05 21:03 | External Medical Summary | Summary of Care ---
Author Name Unknown Organization [facility] Address [address] [place] [address] Phone [phone] Care Team Providers Care Independent Consultant Name Role Phone Jeri Mujica DO Primary Care Provider Reason for Visit * Reason Onset Date Comments Medication Refill 09/29/2023 Encounter Details Date Type Department Care Team (Late st Contact Info) Description 09/29/2023 Refill Family Medicine [address] [phone] Jeri Mujica DO [address] [place], [place] [address] [id number] Allergies No known active allergiesdocumented as of this encounter (statuses as of 09/30/2023) Medications Medication Sig Dispensed Refills Start Date End Date Status Ascorbic Acid (VITAMIN C) 1000 MG TabletIndications :Taken during menstrual cycle Take 1 Tablet by mouth in the morning. Active B-12 500 MCG Oral Tablet Take by mouth. 07/07/2020 Active Pantoprazole Sodium 40 MG Oral Tablet Delayed Release (Protonix)Indicat ions:Gastroesopha geal reflux disease with esophagitis without hemorrhage Take [...] Capsule Therapy Pack Take by mouth. Active Avotronics PowertrainTouch Verio Flex System w/Device KitIndications:Di et controlled gestational diabetes mellitus (GDM) in second trimester Use to test blood sugars 4 times daily (fasting, 1 hour after breakfast, lunch, and dinner) 1 Kit 07/11/2023 Active Avotronics PowertrainToKoru VerDashBurst In Vitro Strip (Glucose Blood)Indications :Diet controlled gestational diabetes mellitus (GDM) in second trimester Use to test blood sugars 4 times daily (fasting, 1 hour after breakfast, lunch, and dinner) 125 Strip 6 07/11/2023 Active Avotronics PowertrainToKoru Delica Lancets 30GIndications:Di et controlled gestational diabetes mellitus (GDM) in second trimester Use to test blood sugars 4 times daily (fasting, 1 hour after breakfast, lunch, and dinner) 200 Each 6 07/11/2023 Active Aspirin 81 MG Oral Capsule Take by mouth. Active metFORMIN HCl 500 MG Oral Tablet (Glucophage)Indic ations:Supervisio n of high risk in second trimester,Gestati onal diabetes mellitus (GDM) in second trimester controlled on oral hypoglycemic drug Take 1000 mg by mouth with breakfast and 1000 mg by mouth at bedtime; approximately 12 hours apart. 90 Tablet 1 08/26/2023 Active Cyclobenzaprine HCl 10 MG Oral Tablet (Flexeril) Take 1 Tablet by mouth at bedtime as needed for Muscle spasms. 30 Tablet 2 09/30/2023 Active Cyclobenzaprine HCl 10 MG Oral Tablet (Flexeril) Take 1 Tablet by mouth at bedtime as needed for Muscle spasms. 30 Tablet 2 03/12/2023 Discontinue d(Refill) documented as of this encounter (statuses as of 09/30/2023) Active Problems Problem Noted Date Diagnosed Date [...] contact for RPM. Message sent to the [facility] to schedule FU ADAPT 07/23/23: RPM reviewed; Elevated FBS and PP's. Msg to [facility] to schedule ADAPT visit. Nutrition visit schedule 08/02/23. 07/25/23: ADAPT visit complete; elevated FBS and some PP values; patient deferred starting insulin but agreeable to Metformin; ordered Metformin 500mg PO daily with evening meal/snack; recommend fasting 8-10 hours overnight along with having a bedtime snack of 30g CHO paired with protein; recommend keeping food log; patient aware of upcoming Nutrition visit 07/29/20234305-GLU-bkqhmfp stable. Multiple missed readings; encouraged to test and report as instructed. 08/05/20239877-GTJ-xvdtqwes post prandial lunch and dinner values. Maternal medicine nurse practitioners to review. 08/05/23: RPM reviewed; PP elevations; increase to Metformin 500mg PO with breakfast and evening meal/snack 08/06/23: HgbA1c 5.5% 08/09/23: RPM message received - patient reporting GI symptoms; recommend F/U ADAPT to discuss possibility of switching to insulin; awaiting patient response back 08/12/20230923-JLX-lzpbkjpq elevated fasting blood sugars and post prandial values. Patient agreeable to follow up ADAPT appointment. [facility] PARs messaged to schedule. 08/14/23: ADAPT follow-up [...] can discuss switching to insulin if needed. 08/19/20235995-JSF-opekwth stable (< 50% elevated) 08/26/2023-RPM-3 elevated fasting [...] bedtime. Last Assessment & Plan: Working with ADAPT. [...] as of this encounter (statuses as of 09/30/2023) Resolved Problems Problem Noted Date Diagnosed Date Resolved Date Abnormal glucose tolerance i n mother complicating 07/02/2023 07/11/2023 Overview: Elevated early 1 hr GTT, 3 hr testing ordered at 14 weeks documented as of this encounter (statuses as of 09/30/2023) Immunizations Name Administration Dates Next Due DT [...] money to get more. Never true 08/16/2023 [place] Depression Scale Answer Date Recorded [place] Depression Scale Total 13 06/04/2023 The thought [...] encounter Miscellaneous Notes * Telephone Encounter - Jeri Mujica DO - 09/30/2023 11:27 AM EDTSigned Prescriptions: Disp Refills Cyclobenzaprine HCl 10 MG Oral Tablet (Fle*30 Tab*2 Sig: Take 1 Tablet by mouth at bedtime as needed for Muscle spasms.Authorizing Provider: JERI MUJICA------- * Telephone Encounter - Elizabeth Harding RN - 09/30/2023 9:26 AM EDTPending Prescriptions: Disp Refills Cyclobenzaprine HCl 10 MG Oral Tablet (Fle*30 Tab*2 Sig: Take 1 Tablet by mouth at bedtime as needed for Muscle spasms. * Telephone Encounter - Elizabeth Harding RN - 09/30/2023 9:26 AM EDT Pending Prescriptions: Disp Refills Cyclobenzaprine HCl 10 MG Oral Tablet (Fl*30 Tab*2 Sig: Take 1 Tablet by mouth at bedtime as needed for Muscle spasms. Last Visit: 09/03/2023 (in office), 01/02/2021 (telemedicine) Next Visit: Visit date not found Last date the medication was ordered: 03/20 Patient Active Problem List Diagnosis Menorrhagia with regular cycle Recurrent vaginitis Irritable bowel syndrome with constipation Gastroesophageal reflux disease without esophagitis Fibromyalgia Supervision of normal first , antepartum Obesity during in second trimester Tobacco smoking affecting in second trimester Fibromyalgia Gestational diabetes mellitus (GDM) controlled on oral hypoglycemic drug, antepartum Supervision of high-risk , second trimester Blood pressure elevated without history of HTN Class 1 obesity Labs: Lab Results Component Value Date/Time CREATININE - [facility] 0.7 05/21/2023 07:18 AM CREATININE - [facility] 0.9 06/19/2019 08:46 AM CREATININE-OUTSIDE LAB 0.65 09/02/2023 12:00 AM Lab Results Component Value Date/Time POTASSIUM - [facility] 4.4 05/21/2023 07:18 AM POTASSIUM - [facility] 4.8 06/19/2019 08:46 AM POTASSIUM-OUTSIDE LAB 3.9 09/02/2023 12:00 AM Lab Results Component Value Date/Time TSH - [facility] 1.21 07/05/2020 02:42 PM TSH - [facility] 1.17 06/19/2019 08:46 AM No results found for: "LDL" Lab Results Component Value Date/Time ALT - [facility] 31 05/21/2023 07:18 AM ALT - [facility] 25 06/19/2019 08:46 AM Hemoglobin AIC Results: Lab Results Component Value Date/Time HEMOGLOBIN A1C - [facility] 5.5 08/02/2023 04:44 PM HEMOGLOBIN A1C - [facility] 5.5 09/06/2021 02:49 PM * Telephone Encounter - Aung Calhoun - 09/30/2023 5:49 AM EDTPending Prescriptions: Disp Refills Cyclobenzaprine HCl 10 MG Oral Tablet (Fle*30 Tab*2 Sig: Take 1Tablet by mouth at bedtime as needed for Muscle spasms. documented in this encounter Plan of Treatment Upcoming Encounters Date Type Department Care Team (Late st Contact Info) Description 10/23/2023 3:15 PM EDT Telemedicine Orthopaedics [facility] [address] [place] [address] Praveen Begum PA-C [address] [place] [address] 10/24/2023 1:00 PM EDT Imaging Maternal Medicine Imaging, Lizeth [facility] [address] [place] [phone] 11/21/2023 8:45 AM EDT Imaging Maternal Medicine Imaging, Lizeth [facility] [address] [place] [phone] Health Maintenance Due Date Last Done Comments [...] filedocumented as of this encounter Care Teams Independent Consultant Relationship Specialty Start Date End Date Jeri Mujica DO [address] [place] [address] [place] [id number] PCP - General Internal Medicine 07/09/16 documented as of this encounter
--- OUTSIDE RECORDS SUMMARY | 2023-11-05 21:03 | External Medical Summary | Summary of Care ---
Author Name Unknown Organization [facility] Address [address] [place] [address] Phone [phone] Care Team Providers Care General Internal Medicine Doctor Name Role Phone Lainey Troy DO Primary Care Provider [phone] Reason for Visit * Reason Comments Outpatient Testing Encounter Details Date Type Department Care Team (Late st Contact Info) Description 10/03/2023 7:30 AM EDT Laboratory Laboratory [address] [place] [phone] [place] [address] Supervision of high-risk , second trimester Allergies No known active allergiesdocumented as of this encounter (statuses as of 10/03/2023) Medications Medication Sig Dispensed Refills Start Date [...] Capsule Therapy Pack Take by mouth. Active [email or web address] Flex System w/Device KitIndications:Diet controlled gestational diabetes mellitus (GDM) in second trimester Use to test blood sugars 4 times daily (fasting, 1 hour after breakfast, lunch, and dinner) 1 Kit 07/11/2023 Active [email or web address] In Vitro Strip (Glucose Blood)Indications:D iet controlled gestational diabetes mellitus (GDM) in second trimester Use to test blood sugars 4 times daily (fasting, 1 hour after breakfast, lunch, and dinner) 125 Strip 6 07/11/2023 Active myOrder DelNetatmo Lancets 30GIndications:Diet controlled gestational diabetes mellitus (GDM) [...] as of this encounter (statuses as of 10/03/2023) Active Problems Problem Noted Date Diagnosed Date [...] Encounters: 07/02/23 108/74 06/04/23 128/82 03/15/23 126/84 10/24/23 132/92 12/10/22 130/90 Last Assessment & Plan: [...] contact for RPM. Message sent to the [facility] to schedule FU ADAPT 07/23/23: RPM reviewed; Elevated FBS and PP's. Msg to [facility] to schedule ADAPT visit. Nutrition visit schedule 08/02/23. 07/25/23: ADAPT visit complete; elevated FBS and some PP values; patient deferred starting insulin but agreeable to Metformin; ordered Metformin 500mg PO daily with evening meal/snack; recommend fasting 8-10 hours overnight along with having a bedtime snack of 30g CHO paired with protein; recommend keeping food log; patient aware of upcoming Nutrition visit 07/29/20239450-RNS-tbzswty stable. Multiple missed readings; encouraged to test and report as instructed. 08/05/20236441-UMD-fgauvdti post prandial lunch and dinner values. Maternal medicine nurse practitioners to review. 08/05/23: RPM reviewed; PP elevations; increase to Metformin 500mg PO with breakfast and evening meal/snack 08/06/23: HgbA1c 5.5% 08/09/23: RPM message received - patient reporting GI symptoms; recommend F/U ADAPT to discuss possibility of switching to insulin; awaiting patient response back 08/12/20236178-QZR-nlgedsmv elevated fasting blood sugars and post prandial values. Patient agreeable to follow up ADAPT appointment. [facility] PARs messaged to schedule. 08/14/23: ADAPT follow-up [...] can discuss switching to insulin if needed. 08/19/20233313-ATH-dmirbwk stable (< 50% elevated) 08/26/2023-RPM-3 elevated fasting [...] lunch and the 1000 mg at bedtime. 09/30/20233712-DGB-wdyjlrih 4 of the past 7 days; overall stable. Messaged to be consistent with testing/reporting four times daily Last Assessment & Plan: Working with ADAPT. [...] as of this encounter (statuses as of 10/03/2023) Resolved Problems Problem Noted Date Diagnosed Date Resolved Date Abnormal glucose tolerance i n mother complicating 07/02/2023 07/11/2023 Overview: Elevated early 1 hr GTT, 3 hr testing ordered at 14 weeks documented as of this encounter (statuses as of 10/03/2023) Immunizations Name Administration Dates Next Due DT [...] money to get more. Never true 08/16/2023 [place] Depression Scale Answer Date Recorded [place] Depression Scale Total 13 06/04/2023 The thought [...] 10/23/2023 3:15 PM EDT [facility] [address] [place] [address] Praveen Begum PA-C [address] [place] [address] 10/24/2023 1:00 PM EDT Imaging Maternal Medicine Imaging, Lizeth Man [address] [place] [phone] 10/24/2023 2:15 PM EDT Office Visit Gynecology/Obstetrics Jasmin Chengs [address] [place] [address] Sobia Gould CRNP [address] [place] [address] 11/21/2023 8:45 AM EDT Imaging Maternal Medicine Imaging, Lizeth Chengs [address] [place] [phone] Pending Results Name Type Priority Associated Diagnoses Date /Time CBC WITH WBC DIFFERENTIAL AND ANEMIA REFLEX WORKUP Lab Routine Supervision of high-risk , second trimester 10/03/2023 7:29 AM EDT SYPHILIS ANTIBODY SCREEN WITH REFLEX TO RPR Lab Routine Supervision of high-risk , second trimester 10/03/2023 7:29 AM EDT ANEMIA CBC Lab Routine Supervision of high-risk , second trimester 10/03/2023 7:29 AM EDT DIFFERENTIAL, AUTOMATED Lab Routine Supervision of high-risk , second trimester 10/03/2023 7:29 AM EDT ANEMIA REFLEX CHEMISTRY HOLD Lab Routine Supervision of high-risk , second trimester 10/03/2023 7:29 AM EDT SYPHILIS ANTIBODY SCREEN Lab Routine Supervision of high-risk , second trimester 10/03/2023 7:29 AM EDT Health Maintenance Due Date Last Done Comments [...] Diagnoses Diagnosis Supervision of high-risk , second trimester documented in this encounter Care Teams General Internal Medicine Doctor Relationship Specialty Start Date End Date Lainey Troy DO [address] [place] [address] [place] [address] PCP - General Internal Medicine 07/09/16 documented as of this encounter
--- OUTSIDE RECORDS SUMMARY | 2023-11-05 21:03 | External Medical Summary | Summary of Care ---
Author Name Unknown Organization [facility] Address [address] [place] [address] Phone [phone] Care Team Providers Care Coating Supervisor Name Role Phone Stephon Troyanda Tran LUNA Primary Care Provider Encounter Details Date Type Department Care Team (Late st Contact Info) Description 09/30/2023 Telephone Gynecology/Obstetrics [facility] 132 [facility] [place] [address] Tanna Aguilar, [facility] [address] [facility] [place] [address] Allergies No known active allergiesdocumented as of [...] Capsule Therapy Pack Take by mouth. Active [employer] Flex System w/Device KitIndications:Diet controlled gestational diabetes mellitus (GDM) in second trimester Use to test blood sugars 4 times daily (fasting, 1 hour after breakfast, lunch, and dinner) 1 Kit 07/11/2023 Active [employer] In Vitro Strip (Glucose Blood)Indications:D iet controlled gestational diabetes mellitus (GDM) in second trimester Use to test blood sugars 4 times daily (fasting, 1 hour after breakfast, lunch, and dinner) 125 Strip 6 07/11/2023 Active Purewine Delica Lancets 30GIndications:Diet controlled gestational diabetes mellitus [...] log; patient aware of upcoming Nutrition visit 07/29/20239566-UJA-qmiqfgq stable. Multiple missed readings; encouraged to test and report as instructed. 08/05/20235077-FEP-xfcfcany post prandial lunch and dinner values. Maternal medicine nurse practitioners to review. 08/05/23: RPM reviewed; PP elevations; increase to Metformin 500mg PO with breakfast and evening meal/snack 08/06/23: HgbA1c 5.5% 08/09/23: RPM message received - patient reporting GI symptoms; recommend F/U ADAPT to discuss possibility of switching to insulin; awaiting patient response back 08/12/20236254-YZB-ojnydpfh elevated fasting blood sugars and post prandial values. Patient agreeable to follow up ADAPT appointment. [facility] PARs messaged to schedule. 08/14/23: [...] can discuss switching to insulin if needed. 08/19/20237659-SNI-vqltsek stable (< 50% elevated) 08/26/2023-RPM-3 elevated fasting [...] money to get more. Never true 08/16/2023 [place] Depression Scale Answer Date Recorded [place] Depression Scale Total 13 06/04/2023 The thought [...] encounter Miscellaneous Notes * Telephone Encounter - Lanny Suarez RN - 09/30/2023 11:56 AM EDT ----- Message from Tanna Aguialr sent at 09/30/2023 11:49 AM EDT ----- Please let patient know her urine culture showed no infection. Thanks! Tanna Aguilar CNM documented in this encounter Plan of Treatment Upcoming Encounters Date Type Department Care Team (Late st Contact Info) Description 10/23/2023 3:15 PM EDT Telemedicine Orthopaedics [facility] [address] [place] [address] Praveen Begum PA-C [address] [place] [address] 10/24/2023 1:00 PM EDT Imaging Maternal Medicine Imaging, [facility] [address] [place] [phone] 10/24/2023 2:15 PM EDT Office Visit Gynecology/Obstetrics [facility] [address] [place] [address] Sobia Gould CRNP [address] [place] [address] 11/21/2023 8:45 AM EDT Imaging Maternal Medicine Imaging, [facility] [address] [place] [phone] Health Maintenance Due Date Last Done Comments [...] filedocumented as of this encounter Care Teams Coating Supervisor Relationship Specialty Start Date End Date Lainey Troy DO [address] [place] [address] [place] [address] PCP - General Internal Medicine 07/09/16 documented as of this encounter
--- OUTSIDE RECORDS SUMMARY | 2023-11-05 21:04 | External Medical Summary | Summary of Care ---
Author Name Unknown Organization [facility] Address [address] [place] [address] Phone [phone] Care Team Providers Care Linotype Machinist Apprentice Name Role Phone Stephon Troyanda Tran LUNA Primary Care Provider [phone] Reason for Visit * Reason Comments Return Visit Encounter Details Date Type Department Care Team (Late st Contact Info) Description 09/27/2023 4:15 PM EDT Office Visit Gynecology/Obstetric s [facility] [address] [place] [address] Tanna Aguilar, [facility] [address] [facility] [place] [address] Supervision of high-risk , second [...] Capsule Therapy Pack Take by mouth. Active [employer] Flex System w/Device KitIndications:Diet controlled gestational diabetes mellitus (GDM) in second trimester Use to test blood sugars 4 times daily (fasting, 1 hour after breakfast, lunch, and dinner) 1 Kit 07/11/2023 Active [employer] In Vitro Strip (Glucose Blood)Indications:D iet controlled gestational diabetes mellitus (GDM) in second trimester Use to test blood sugars 4 times daily (fasting, 1 hour after breakfast, lunch, and dinner) 125 Strip 6 07/11/2023 Active Oatmeal Delica Lancets 30GIndications:Diet controlled gestational diabetes mellitus [...] contact for RPM. Message sent to the [facility] to schedule FU ADAPT 07/23/23: RPM [...] log; patient aware of upcoming Nutrition visit 07/29/20234464-GIP-bgsrdvx stable. Multiple missed readings; encouraged to test and report as instructed. 08/05/20236859-IEM-pmlmkujc post prandial lunch and dinner values. Maternal medicine nurse practitioners to review. 08/05/23: RPM reviewed; PP elevations; increase to Metformin 500mg PO with breakfast and evening meal/snack 08/06/23: HgbA1c 5.5% 08/09/23: RPM message received - patient reporting GI symptoms; recommend F/U ADAPT to discuss possibility of switching to insulin; awaiting patient response back 08/12/20234494-RBS-ejqujzbi elevated fasting blood sugars and post prandial values. Patient agreeable to follow up ADAPT appointment. [facility] PARs messaged to schedule. 08/14/23: ADAPT follow-up [...] can discuss switching to insulin if needed. 08/19/20234999-JJF-kiisfqe stable (< 50% elevated) 08/26/2023-RPM-3 elevated fasting [...] money to get more. Never true 08/16/2023 [place] Depression Scale Answer Date Recorded [place] Depression Scale Total 13 06/04/2023 The thought [...] Description 10/23/2023 3:15 PM EDT Telemedicine Orthopaedics [facility] [address] [place] [address] Praveen Begum PA-C [address] [place] [address] 10/24/2023 1:00 PM EDT Imaging Maternal Medicine Imaging, [facility] [address] [place] [phone] 11/21/2023 8:45 AM EDT Imaging Maternal Medicine Imaging, [place] [address] [address] [place] [phone] Pending Results Name Type Priority Associated Diagnoses [...] obesity documented in this encounter Care Teams Linotype Machinist Apprentice Relationship Specialty Start Date End Date Lainey Troy DO [address] [place] [address] [place] [address] PCP - General Internal Medicine 07/09/16 documented as of this encounter
--- OUTSIDE RECORDS SUMMARY | 2023-11-05 21:04 | External Medical Summary | Summary of Care ---
Author Name Unknown Organization [facility] Address [address] [place] [address] Phone [phone] Care Team Providers Care Crowd Controller Name Role Phone TroyLainey Mayfield Primary Care Provider Reason for Visit * Reason Onset Date Comments Diabetes 09/11/2023 Encounter Details Date Type Department Care Team (Late st Contact Info) Description 09/11/2023 9:00 AM EDT Scheduled Telephone Lizeth Nolasco [address] [place] [id number] Sho Mayer RDN [address] [facility] [address] Allergies No known active allergiesdocumented as of this encounter (statuses as of 09/11/2023) Medications Medication Sig Dispensed Refills Start Date [...] Capsule Therapy Pack Take by mouth. Active M Squared Lasers Flex System w/Device KitIndications:Diet controlled gestational diabetes mellitus (GDM) in second trimester Use to test blood sugars 4 times daily (fasting, 1 hour after breakfast, lunch, and dinner) 1 Kit 07/11/2023 Active M Squared Lasers In Vitro Strip (Glucose Blood)Indications:D iet controlled gestational diabetes mellitus (GDM) in second trimester Use to test blood sugars 4 times daily (fasting, 1 hour after breakfast, lunch, and dinner) 125 Strip 6 07/11/2023 Active Droid system master Delica Lancets 30GIndications:Diet controlled gestational diabetes mellitus [...] as of this encounter (statuses as of 09/11/2023) Active Problems Problem Noted Date Diagnosed Date [...] contact for RPM. Message sent to the [facility] to schedule FU ADAPT 07/23/23: RPM reviewed; Elevated FBS and PP's. Msg to [facility] to schedule ADAPT visit. [...] log; patient aware of upcoming Nutrition visit 07/29/20235689-JVW-eyvpajl stable. Multiple missed readings; encouraged to test and report as instructed. 08/05/20234407-EML-wutevphc post prandial lunch and dinner values. Maternal medicine nurse practitioners to review. 08/05/23: RPM reviewed; PP elevations; increase to Metformin 500mg PO with breakfast and evening meal/snack 08/06/23: HgbA1c 5.5% 08/09/23: RPM message received - patient reporting GI symptoms; recommend F/U ADAPT to discuss possibility of switching to insulin; awaiting patient response back 08/12/20239275-QMW-baiviawf elevated fasting blood sugars and post prandial values. Patient agreeable to follow up ADAPT appointment. [facility] messaged to schedule. 08/14/23: ADAPT follow-up [...] can discuss switching to insulin if needed. 08/19/20237988-AQW-ltepeix stable (< 50% elevated) 08/26/2023-RPM-3 elevated fasting [...] 09/09/23: RPM reviewed; Stable overall; continue Metformin Last Assessment & Plan: Working with ADAPT. Reviewed plan to follow growth q4-6 weeks as well as to continue submitting sugars to ADAPT for review and medication adjustment. Supervision of normal first , antepartu m [...] as of this encounter (statuses as of 09/11/2023) Resolved Problems Problem Noted Date Diagnosed Date Resolved Date Abnormal glucose tolerance i n mother complicating 07/02/2023 07/11/2023 Overview: Elevated early 1 hr GTT, 3 hr testing ordered at 14 weeks documented as of this encounter (statuses as of 09/11/2023) Immunizations Name Administration Dates Next Due DT [...] money to get more. Never true 08/16/2023 [place] Depression Scale Answer Date Recorded [place] Depression Scale Total 13 06/04/2023 The thought [...] encounter Miscellaneous Notes * Telephone Encounter - Sho Mayer, ARMIDA - 09/11/2023 11:25 AM EDT Attempted to contact pt to follow up after initial GDM visit from August 01. Left message on pt's voicemail. Also, encouraged her to schedule a follow-up appointment with me. Sho Mayer RDN, Clinical Dietitian II, [facility] Clinical Nutrition Services [facility] [place], [facility] [address] [place] [id number] Available via [employer] Portal documented in this encounter Plan of Treatment Upcoming Encounters Date Type Department Care Team (Late st Contact Info) Description 09/25/2023 2:30 PM EDT Imaging Radiology, [facility] [address] [place] [address] 09/27/2023 4:15 PM EDT Office Visit Gynecology/Obstetrics [facility] [address] [place] [address] Tanna Aguilar, [facility] [address] [place] [address] 10/23/2023 3:15 PM EDT Telemedicine Orthopaedics [facility] [address] [place] [address] Praveen Begum PA-C [address] [place] [address] 10/24/2023 1:00 PM EDT Imaging Maternal Medicine Imaging, [facility] [address] [place] [phone] 11/21/2023 8:45 AM EDT Imaging Maternal Medicine Imaging, [facility] [address] [place] [phone] Health Maintenance Due Date Last Done Comments [...] filedocumented as of this encounter Care Teams Crowd Controller Relationship Specialty Start Date End Date Lainey Troy DO [address] [place] [address] [place] [address] PCP - General Internal Medicine 07/09/16 documented as of this encounter
--- OUTSIDE RECORDS SUMMARY | 2023-11-05 21:04 | External Medical Summary | Summary of Care ---
Author Name Unknown Organization [facility] Address [address] [place] [address] Phone [phone] Care Team Providers Care Perfect Binder Feeder Offbearer Name Role Phone Lainey Troy DO Primary Care Provider [phone] Encounter Details Date Type Department Care Team (Late st Contact Info) Description 09/02/2023 Result Scan Unspecified Department <No scans attached> Allergies No known active allergiesdocumented as of this encounter (statuses as of 09/04/2023) Medications Medication Sig Dispensed Refills Start Date [...] Capsule Therapy Pack Take by mouth. Active Vermillion Flex System w/Device KitIndications:Diet controlled gestational diabetes mellitus (GDM) in second trimester Use to test blood sugars 4 times daily (fasting, 1 hour after breakfast, lunch, and dinner) 1 Kit 07/11/2023 Active Vermillion In Vitro Strip (Glucose Blood)Indications:D iet controlled gestational diabetes mellitus (GDM) in second trimester Use to test blood sugars 4 times daily (fasting, 1 hour after breakfast, lunch, and dinner) 125 Strip 6 07/11/2023 Active Thoof DelFutubra Lancets 30GIndications:Diet controlled gestational diabetes mellitus (GDM) [...] as of this encounter (statuses as of 09/04/2023) Active Problems Problem Noted Date Diagnosed Date [...] for RPM. Message sent to the [facility] to schedule FU ADAPT 07/23/23: RPM reviewed; Elevated FBS and PP's. Msg to [facility] to schedule ADAPT visit. Nutrition visit schedule 08/02/23. 07/25/23: ADAPT visit complete; elevated FBS and some PP values; patient deferred starting insulin but agreeable to Metformin; ordered Metformin 500mg PO daily with evening meal/snack; recommend fasting 8-10 hours overnight along with having a bedtime snack of 30g CHO paired with protein; recommend keeping food log; patient aware of upcoming Nutrition visit 07/29/20238850-FVM-wvjzrqw stable. Multiple missed readings; encouraged to test and report as instructed. 08/05/20233421-ASV-amxepsny post prandial lunch and dinner values. Maternal medicine nurse practitioners to review. 08/05/23: RPM reviewed; PP elevations; increase to Metformin 500mg PO with breakfast and evening meal/snack 08/06/23: HgbA1c 5.5% 08/09/23: RPM message received - patient reporting GI symptoms; recommend F/U ADAPT to discuss possibility of switching to insulin; awaiting patient response back 08/12/20231592-GBG-abvpnuol elevated fasting blood sugars and post prandial values. Patient agreeable to follow up ADAPT appointment. [facility]s messaged to schedule. 08/14/23: ADAPT follow-up [...] can discuss switching to insulin if needed. 08/19/20232016-ZOE-xzjjtxc stable (< 50% elevated) 08/26/2023-RPM-3 elevated fasting [...] at bedtime. 09/02/23: RPM reviewed; Stable overall Last Assessment & Plan: Working with ADAPT. [...] as of this encounter (statuses as of 09/04/2023) Resolved Problems Problem Noted Date Diagnosed Date Resolved Date Abnormal glucose tolerance i n mother complicating 07/02/2023 07/11/2023 Overview: Elevated early 1 hr GTT, 3 hr testing ordered at 14 weeks documented as of this encounter (statuses as of 09/04/2023) Immunizations Name Administration Dates Next Due DT [...] money to get more. Never true 08/16/2023 [place] Depression Scale Answer Date Recorded [place] Depression Scale Total 13 06/04/2023 The thought [...] No 08/16/2023 Does the household have a [facility] source of income? (Household - for [...] Description 09/25/2023 2:30 PM EDT Imaging Radiology, [facility] [address] [place] [address] 09/27/2023 4:15 PM EDT Office Visit Gynecology/Obstetrics [place] [address] Tanna Aguilar, [address] [place] [address] 10/24/2023 1:00 PM EDT Imaging Maternal Medicine Imaging, [place] [address] 11/21/2023 8:45 AM EDT Imaging Maternal Medicine Imaging, [address] [place] [phone] Health Maintenance Due Date Last Done Comments [...] Not on filedocumented as of this encounter Procedures Procedure Name Priority Date/Time Associated Diagnosis Comments RADIOLOGY SCANNED RESULT 09/02/2023 RADIOLOGY SCANNED RESULT 09/02/2023 documented in this encounter Results * RADIOLOGY SCANNED RESULT (09/02/2023) 09/02/2023 No Physician Data Unknown DIAGNOSTIC RAD IOLOGY SERVICES * RADIOLOGY SCANNED RESULT (09/02/2023) 09/02/2023 No Physician Data Unknown DIAGNOSTIC RAD IOLOGY SERVICES documented in this encounter Care Teams Perfect Binder Feeder Offbearer Relationship Specialty Start Date End Date Lainey Troy DO [address] [place] [address] [place] [address] PCP - General Internal Medicine 07/09/16 documented as of this encounter
--- OUTSIDE RECORDS SUMMARY | 2023-11-05 21:04 | External Medical Summary ---
Author Name Unknown Address Unknown Organization [id number]:[facility] - [address] [place] [id number] Laboratory Report Ordering Provider Test Date Status CLARA SCHAEFFER 09/27/2023 16:38:26 Final Observation Date Value Abnormality Reference (Units) Status Bacteria identified in Specimen by Culture 09/27/2023 16:38:26 No significant growth Final Test: Culture, Urine, Quant itative
Specimen Source: Urine, Clean Catch
Specimen Type: Urine
Specimen Date: 09/27/2023 163
Result Date: 09/28/2023 163
Result Status: Final result
Resulting Lab: [facility]
[address]
[place] [address]

CULTURE

No significant growth

null Performing Location [facility] - [address] [place] [id number]
--- OUTSIDE RECORDS SUMMARY | 2023-11-05 21:04 | External Medical Summary | Summary of Care ---
Author Name Unknown Organization [facility] Address [address] [place] [address] Phone [phone] Care Team Providers Care Heel Sorter Name Role Phone Lainey Troy DO Primary Care Provider [phone] Reason for Referral * Evaluate & Treat - Unlimited Visits (Within 10 days (routine)) - Authorized Specialty Diagnoses / Procedures Referred By Jess chairez Referred To Contact Physical Therapy / Physical Medicine And Rehab Diagnoses Sacroiliac joint dysfunction of right side Praveen Begum PA-C [address] [place] [id number] Referral ID Status Reason Start Date Expiration Date Visits Requested Visits Authorized [id number] Authorized Specialty Services Required 09/07/[phone] Question Answer Referral Priority Within 10 days (routine) Where should this appointment be scheduled? Liudmila Comments Right-sided sacroiliitis Reason for Visit * Reason Comments NEW PATIENT Right Encounter Details Date Type Department Care Team (Late st Contact Info) Description 09/07/2023 9:20 AM EDT Office Visit Orthopaedics [facility] [address] [place] [address] Praveen Begum PA-C [address] [place] [phone] Sacroiliac joint dysfunction of right side* Allergies No known active allergiesdocumented as of this encounter (statuses as of 09/07/2023) Medications Medication Sig Dispensed Refills Start Date End Date Status Ascorbic Acid (VITAMIN C) 1000 MG TabletIndications: Taken during menstrual cycle Take 1 Tablet by mouth in the morning. Active B-12 500 MCG Oral Tablet Take by mouth. 07/07/2020 Active Pantoprazole Sodium 40 MG Oral Tablet Delayed Release (Protonix)Indicati ons:Gastroesophage al reflux disease with esophagitis without hemorrhage Take [...] Capsule Therapy Pack Take by mouth. Active InfoBasis Flex System w/Device KitIndications: t controlled gestational diabetes mellitus (GDM) in second trimester Use to test blood sugars 4 times daily (fasting, 1 hour after breakfast, lunch, and dinner) 1 Kit 07/11/2023 Active InfoBasis In Vitro Strip (Glucose Blood)Indications: Diet controlled gestational diabetes mellitus (GDM) in second trimester Use to test blood sugars 4 times daily (fasting, 1 hour after breakfast, lunch, and dinner) 125 Strip 6 07/11/2023 Active payByMobileuch Delica Lancets 30GIndications: t controlled gestational diabetes mellitus (GDM) in second trimester Use to test blood sugars 4 times daily (fasting, 1 hour after breakfast, lunch, and dinner) 200 Each 6 07/11/2023 Active Aspirin 81 MG Oral Capsule Take by mouth. Active metFORMIN HCl 500 MG Oral Tablet (Glucophage)Indica tions:Supervision of high risk in second trimester,Gestatio nal diabetes mellitus (GDM) in second trimester controlled on oral hypoglycemic drug Take 1000 mg by mouth with breakfast and 1000 mg by mouth at bedtime; approximately 12 hours apart. 90 Tablet 1 08/26/2023 Active Cephalexin 500 MG Oral Capsule (Keflex) Take 1 Capsule by mouth in the morning and 1 Capsule at noon and 1 Capsule in the evening and 1 Capsule before bedtime. 09/02/2023 09/09/2023 Active documented as of this encounter (statuses as of 09/07/2023) Active Problems Problem Noted Date Diagnosed Date [...] (H) 07/09/2023 08:45 AM HEMOGLOBIN A1C - [facility] 5.5 09/06/2021 02:49 PM She reports her [...] contact for RPM. Message sent to the PARs to schedule FU ADAPT 07/23/23: RPM reviewed; [...] log; patient aware of upcoming Nutrition visit 07/29/20236938-UTY-iexpqlv stable. Multiple missed readings; encouraged to test and report as instructed. 08/05/20233497-JDL-ubzbkwvw post prandial lunch and dinner values. Maternal medicine nurse practitioners to review. 08/05/23: RPM reviewed; PP elevations; increase to Metformin 500mg PO with breakfast and evening meal/snack 08/06/23: HgbA1c 5.5% 08/09/23: RPM message received - patient reporting GI symptoms; recommend F/U ADAPT to discuss possibility of switching to insulin; awaiting patient response back 08/12/20238402-QBF-brlpezeg elevated fasting blood sugars and post prandial values. Patient agreeable to follow up ADAPT appointment. [facility] messaged to schedule. 08/14/23: ADAPT follow-up [...] can discuss switching to insulin if needed. 08/19/20238686-HVK-vwvgazv stable (< 50% elevated) 08/26/2023-RPM-3 elevated fasting [...] adjustment. Supervision of normal first , antepartu 06/04/2023 [...] as of this encounter (statuses as of 09/07/2023) Resolved Problems Problem Noted Date Diagnosed Date Resolved Date Abnormal glucose tolerance i n mother complicating 07/02/2023 07/11/2023 Overview: Elevated early 1 hr GTT, 3 hr testing ordered at 14 weeks documented as of this encounter (statuses as of 09/07/2023) Immunizations Name Administration Dates Next Due DT [...] money to get more. Never true 08/16/2023 [place] Depression Scale Answer Date Recorded [place] Depression Scale Total 13 06/04/2023 The thought [...] Progress Notes * Praveen Begum PA-C - 09/07/2023 9:52 AM EDT Subjective Sophie Emmanuel is a 33 year old female. Chief Complaint Patient presents with NEW PATIENT Right HPI: New patient presents for right-sided buttock pain that has been present for several weeks. Sheis 24 weeks . Smokes half a pack to 1 pack daily we spoke at length regarding this today inthe negative affects for all obvious reasons. Here with her mother today. Denies an injury or fall.No x-rays to be performed due to current . Denies loss of bladder bowel control. Denies weakness or loss of muscle tone in the right lower extremity. Worse with lengthy periods of immobilityand certain periods of weight-bearing. Does not radiate past the buttock or thigh. No x-rays todayas she is 24 weeks . Saw the ER, PCP and chiropractor yesterday. States that the severity of her symptoms are actually slightly decreased after visiting with a chiropractor yesterday. No formal PT or thermal modalities. PMH: Patient Active Problem List Diagnosis Menorrhagia with [...] without history of HTN Class 1 obesity Current Outpatient Medications Medication Sig Dispense Refill Ascorbic Acid (VITAMIN C) 1000 MG Tablet Take 1 Tablet by mouth in the morning. B-12 500 MCG Oral Tablet Take by mouth. Pantoprazole Sodium 40 MG Oral Tablet Delayed Release (Protonix) Take 1 Tablet by mouth in the morning. 30 minutes before the first meal of the day. Do not crush, split or chew the tablet. 30 Tablet 5 Cyclobenzaprine HCl 10 MG Oral Tablet (Flexeril) Take 1 Tablet by mouth at bedtime as needed for Muscle spasms. 30 Tablet 2 Ondansetron HCl 8 MG Oral Tablet 1 tablet by mouth every 8 hours as needed for nausea and/or vomiting 30 Tablet 1 Complete Oral Capsule Therapy Pack Take by mouth. InfoBasis Flex System w/Device Kit Use to test blood sugars 4 times daily (fasting, 1 hour after breakfast, lunch, and dinner) 1 Kit 0 payByMobileuch Verio In Vitro Strip (Glucose Blood) Use to test blood sugars 4 times daily (fasting, 1 hour after breakfast, lunch, and dinner) 125 Strip 6 payByMobileuch Delica Lancets 30G Use to test blood sugars 4 times daily (fasting, 1 hour after breakfast, lunch, and dinner) 200 Each 6 Aspirin 81 MG Oral Capsule Take by mouth. metFORMIN HCl 500 MG Oral Tablet (Glucophage) Take 1000 mg by mouth with breakfast and 1000 mg by mouth at bedtime; approximately 12 hours apart. 90 Tablet 1 Cephalexin 500 MG Oral Capsule (Keflex) Take 1 Capsule by mouth in the morning and 1 Capsule at noon and 1 Capsule in the evening and 1 Capsule before bedtime. No current facility-administered medications for this visit. Past Medical History: Diagnosis Date Fibromyalgia GDM (gestational diabetes mellitus) 07/11/2023 Diagnosed at 15 wks IBS (irritable bowel syndrome) (c) Interstitial cystitis Migraine Sciatica of right side TMJ (temporomandibular joint syndrome) (D) Past Surgical History: Procedure Laterality Date EGD, FLEXIBLE, DIAGNOSTIC 12/07/2022 biopsies from esophagus show mild reflux/ESOPHAGOGASTRODUODENOSCOPY (EGD), FLEXIBLE, TRANSORAL, DIAGNOSTIC performed by Mendy Cardenas MD at ENDOSCOPY [facility] Review of patient's allergies indicates: No Known Allergies Family History Problem Relation Name Age of Onset No Known Problems Mother Heart Disorder Father heart murmer Hypertension Father Heart Disorder Brother heart murmer Diabetes Brother Cancer Grandmother (Maternal) skin cancer Colon polyps Grandmother (Maternal) Colon polyps Grandmother (Paternal) Cancer Aunt (Unspecified) breast cancer; maternal Family Status Relation Status Mo Alive Fa Alive Bro Alive Bro Alive MGMA (Not Specified) PGMA (Not Specified) AUNT (Not Specified) Social History Socioeconomic History Marital status: Spouse name: [place] Emmanuel Number of children: 0 Years of education: Not on file Highest education level: Not on file Occupational History 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 Employer: [employer] [place], [place] Tobacco Use Smoking status: Every Day Current packs/day: 0.50 Types: Cigarettes Smokeless tobacco: Never Tobacco comments: 1/2 post depression - cut back since KOP Vaping Use Vaping status: Never Used Substance and Sexual Activity Alcohol use: Not Currently Comment: occasional Drug use: No Sexual activity: Yes Partners: Male Other Topics Concern Not on file Social History Narrative Not on file Social Determinants of Health Financial Resource Strain: Low Risk (08/16/2023) Financial Resource Strain Do you have any trouble paying for your medications, or do you think you might in the future? (Adult - for ages 18 years and over): No Does your family have trouble paying for medicine? (Household - for ages 0-17 years): Not on file Food Insecurity: No Food Insecurity (08/16/2023) Food Insecurity Do you need food for this week? (Adult - for ages 18 years and over): No Are you able to get enough food for your family? (Household - for ages 0-17 years): Not on file Does your family need food this week? (Household - for ages 0-17 years): Not on file Do you always have enough food for your family? (Household - for ages 0-17 years): Not on file Transportation Needs: No Transportation Needs (08/16/2023) Transportation Needs Do you have trouble getting a ride to medical visits or work? (Adult - for ages 18 years and over):Never True Does your family have a hard time getting a ride to doctors visits? (Household - for ages 0-17 years): Not on file Has lack of transportation kept you from medical appointments, meetings, work, or from getting things needed for daily living? Check all that apply. (Adult - for ages 18 years and over): No Do you (or your family) have trouble finding or paying for a ride (transportation)? (Household - for ages 0-17 years): Not on file Social Connections: Socially Integrated (08/16/2023) Social Connections How often do you feel lonely or isolated from those around you? (Adult - for ages 18 years and over): Never Housing Stability: Low Risk (08/16/2023) Housing Stability Do you currently live in a long-term or have no steady place to sleep at night? (Adult - for ages 18 years and over): No Do you think you are at risk of becoming homeless? (Adult - for ages 18 years and over): No Does your family worry about paying for your home or becoming homeless? (Household - for ages 0-17 years): Not on file Are you homeless or worried that you might be in the future? (Adult - for ages 18 years and over): No Are you (or your family) homeless or worried that you might be in the future? (Household - for ages0-17 years): Not on file Objective LMP 03/08/2023 (Approximate) Comment: Pt said she took her pills correctly and never missed one. Ptsaid her periods have been all over since nov when she was put on new pill. complete review of systems negative General: alert and oriented x3 female, no acute distress, appears currently stated age, pleasant, well nourished, here with her mother Skin: Right hip and lumbar spine does not reveal any erythema, effusion, ecchymosis, abrasion, laceration, skin breakdown otherwise Neurovascular: Right lower extremity is neurovascularly intact with good sensation strength throughout, calf supple nontender, toes were mobile, +5 strength dorsi and plantar flexion of the foot Musculoskeletal: The patient is able to full weightbear although appears slightly uncomfortable. There is tenderness palpating the right SI joint in its superior aspect. The piriformis is nontender. The patient does experience some pain in a seated position and resisting abduction of the hips againlocated at the right SI joint. The lumbar spine is nontender including the spinous processes and paraspinal musculature. Negative straight leg raise when performing individually bilaterally. Knees atraumatic ASSESSMENT/PLAN: Sacroiliac joint dysfunction of right side (Primary) - PHYSICAL THERAPY REFERRAL OP Check-out note: PT order and 6 week telephonic Impression: Right sacroiliitis Plan: Today 's findings were discussed with the patient. They were educated regarding their diagnosis. Multiple treatment options discussed and agreed upon, including physical therapy order, chiropractics to her liking, topical thermal modalities with ice and heat and behavior modification. Counseled at length today regarding smoking cessation and offered therapeutic options and treatment modalities which has been declined. The patient has no other questions or concerns. PT order and 6 week telephonic. No urgent or emergent pathology I can identify today with information obtain clinically andlack of x-rays. Pleased with today 's care. Call sooner if needed. This chart was completed in part utilizing [employer] Speech Voice Recognition Software. Grammatical errors, random word insertions, prounoun errors, and incomplete sentences are an occasional consequence of this system due to software limitations, ambient noise, and hardware issues. Any formal questions or concerns about the content, text, or information contained within the body of this dictation should be directly addressed to the provider for clarification. Praveen Begum PA-C documented in this encounter Nursing Notes * Liss Mena MED ASSIST - 09/07/2023 9:29 AM EDT Patient presents today for right side buttock pain. Patient states she has been to hospital, chiropractor, and PCP for this pain. Patient states she is just wanting to know what she can do for this. documented in this encounter Miscellaneous Notes * Addendum Note - Praveen Begum PA-C - 09/07/2023 9:58 AM EDTAddended by: PRAVEEN BEGUM on: 09/07/2023 09:58 AM Modules accepted: Level of Service documented in this encounter Plan of Treatment Upcoming Encounters Date Type Department Care Team (Late st Contact Info) Description 09/25/2023 2:30 PM EDT Imaging Radiology, [facility] [address] [place], [place] [address] [address] 09/27/2023 4:15 PM EDT Office Visit [facility] [address] [place] [address] Tanna Aguilar, [facility] [address] [place] [address] 10/23/2023 3:15 PM EDT Office Visit Orthopaedics [facility] [address] [place] [address] Praveen Begum PA-C [address] [place] [address] 10/24/2023 1:00 PM EDT Imaging [facility], [place] [address] [facility] [place] [phone] 11/21/2023 8:45 AM EDT Imaging Maternal Medicine Imaging, [place] [address] [facility] [place] [phone] Scheduled Referrals Name Type Priority Associated Diagnoses Orde r Schedule PHYSICAL THERAPY REFERRAL OP Referral Within 10 days (routine) Sacroiliac joint dysfunction of right side Ordered: 09/07/2023 Health Maintenance Due Date Last Done Comments [...] sacrum documented in this encounter Care Teams Heel Sorter Relationship Specialty Start Date End Date Lainey Troy DO [address] [place] [address] [place] [id number] PCP - General Internal Medicine 07/09/16 documented as of this encounter
--- OUTSIDE RECORDS SUMMARY | 2023-11-05 21:04 | External Medical Summary | Summary of Care ---
Author Name Unknown Organization [facility] Address [address] [place] [address] Phone [phone] Care Team Providers Care Press Breaker Name Role Phone Woodrow Lainey Mayfield Primary Care Provider Encounter Details Date Type Department Care Team (Late st Contact Info) Description 09/25/2023 2:30 PM EDT Office Visit [facility] Obstetrics Maternal Medicine, [address] [address] Marbella Fowler, DO [address] [place] [address] Obesity during in second trimester*; Gestational diabetes mellitus (GDM) controlled on oral hypoglycemic drug, antepartum; Ultrasound for screening for growth restriction; 26 weeks gestation of Allergies No known active allergiesdocumented as of this encounter (statuses as of 09/25/2023) Medications Medication Sig Dispensed Refills Start Date [...] Capsule Therapy Pack Take by mouth. Active Leap Medical Flex System w/Device KitIndications:Diet controlled gestational diabetes mellitus (GDM) in second trimester Use to test blood sugars 4 times daily (fasting, 1 hour after breakfast, lunch, and dinner) 1 Kit 07/11/2023 Active Leap Medical In Vitro Strip (Glucose Blood)Indications:D iet controlled gestational diabetes mellitus (GDM) in second trimester Use to test blood sugars 4 times daily (fasting, 1 hour after breakfast, lunch, and dinner) 125 Strip 6 07/11/2023 Active YouData DelHot Dot Lancets 30GIndications:Diet controlled gestational diabetes mellitus (GDM) [...] as of this encounter (statuses as of 09/25/2023) Active Problems Problem Noted Date Diagnosed Date [...] for RPM. Message sent to the [facility] to schedule FU ADAPT 07/23/23: RPM reviewed; Elevated FBS and PP's. Msg to [facility] to schedule ADAPT visit. Nutrition visit schedule 08/02/23. 07/25/23: ADAPT visit complete; elevated FBS and some PP values; patient deferred starting insulin but agreeable to Metformin; ordered Metformin 500mg PO daily with evening meal/snack; recommend fasting 8-10 hours overnight along with having a bedtime snack of 30g CHO paired with protein; recommend keeping food log; patient aware of upcoming Nutrition visit 07/29/20231493-IFR-hckalbg stable. Multiple missed readings; encouraged to test and report as instructed. 08/05/20237299-QGY-gjyvlaot post prandial lunch and dinner values. Maternal medicine nurse practitioners to review. 08/05/23: RPM reviewed; PP elevations; increase to Metformin 500mg PO with breakfast and evening meal/snack 08/06/23: HgbA1c 5.5% 08/09/23: RPM message received - patient reporting GI symptoms; recommend F/U ADAPT to discuss possibility of switching to insulin; awaiting patient response back 08/12/20235543-PZO-wimywdgp elevated fasting blood sugars and post prandial [...] can discuss switching to insulin if needed. 08/19/20234181-IGB-lxsebdc stable (< 50% elevated) 08/26/2023-RPM-3 elevated fasting [...] as of this encounter (statuses as of 09/25/2023) Resolved Problems Problem Noted Date Diagnosed Date Resolved Date Abnormal glucose tolerance i n mother complicating 07/02/2023 07/11/2023 Overview: Elevated early 1 hr GTT, 3 hr testing ordered at 14 weeks documented as of this encounter (statuses as of 09/25/2023) Immunizations Name Administration Dates Next Due DT [...] money to get more. Never true 08/16/2023 [place] Depression Scale Answer Date Recorded [place] Depression Scale Total 13 06/04/2023 The thought [...] No 08/16/2023 Does the household have a [facility] income? (Household - for [...] of this encounter Progress Notes * Marbella Fowler, DO - 09/25/2023 2:53 PM EDT Sophie presented today at 26w2d for an ultrasound for the following indications: Obesity during in second trimester Gestational diabetes mellitus (GDM) controlled on oral hypoglycemic drug, antepartum Assessment & Plan: Working with ADAPT. Ultrasound for screening for growth restriction 26 weeks gestation of Ultrasound summary: Patient presented at 26w 2d for growth assessment. Normal growth with EFW 951 g at 49%ile. Normal RAMESH at 17.8 cm. Cephalic presentation. I reviewed the ultrasound images. Sophie was given the opportunity to meet with me if she had any questions. Please refer to the ultrasound report for additional details about today's ultrasound examination. RECOMMENDATIONS: Recommend follow up ultrasound with MFM in 4-6 weeks for growth secondary to above indications. See prior formal MFM consultation note. Thank you for allowing us to participate in the care of this patient. Please call with any questions. Marbella Fowler DO 09/25/2023 2:53 PM documented in this encounter Miscellaneous Notes * Assessment & Plan Note - Marbella Fowler DO - 09/25/2023 8:52 AM EDT Associated Problem(s): Gestational diabetes mellitus (GDM) controlled on oral hypoglycemic drug, antepartum Working with ADAPT. documented in this encounter Plan of Treatment Upcoming Encounters Date Type Department Care Team (Late st Contact Info) Description 09/27/2023 4:15 PM EDT Office Visit Gynecology/Obstetrics [facility] [address] [place] [address] Tanna Aguilar CNM [address] [place] [address] [place] [address] 10/23/2023 3:15 PM EDT Telemedicine Orthopaedics [facility] [address] [place] [address] Praveen Begum PA-C [address] [place] [address] 10/24/2023 1:00 PM EDT Imaging Maternal Medicine Imaging, [address] [place] [phone] 11/21/2023 8:45 AM EDT Imaging Maternal Medicine Imaging, [address] [place] [phone] Health Maintenance Due Date Last Done Comments [...] HPV (Gardasil) Vaccine Completed 7, 06/24/2006, 04/18/2006 Hepatitis C Screening Completed 06/04/2023 , 06/04/2023, 06/04/2023, Additional history exists documented as of this encounter Medical Devices Not on filedocumented as of this encounter Visit Diagnoses Diagnosis Obesity during in second trimester- Primary Gestational diabetes mellitus (GDM) controlled on oral hypoglycemic drug, antepartum Ultrasound for screening for growth restriction screening for growth retardation using ultrasonics 26 weeks gestation of state, incidental documented in this encounter Care Teams Press Breaker Relationship Specialty Start Date End Date Lainey Troy DO [address] [place] [address] [place] [id number] PCP - General Internal Medicine 07/09/16 documented as of this encounter
--- OUTSIDE RECORDS SUMMARY | 2023-11-05 21:04 | External Medical Summary | Summary of Care ---
Author Name Unknown Organization [facility] Address [address] [place] [address] Phone [phone] Care Team Providers Care Core Dipper Name Role Phone Lainey Troy DO Primary Care Provider [phone] Reason for Referral * Evaluate & Treat - Unlimited Visits (Within 10 days (routine)) - Authorized Specialty Diagnoses / Procedures Referred By Jess chairez Referred To Contact Orthopaedic Surgery / Orthopedics Diagnoses Right buttock pain Lainey Troy DO [address] [place] [address] [place] [id number] Referral ID Status Reason Start Date Expiration Date Visits Requested Visits Authorized [id number] Authorized Specialty Services Required 09/03/[phone] Question Answer Referral Priority Within 10 days (routine) Where should this appointment be scheduled? [facility] What body part is the patient being seen for? Hip What condition is the patient being seen for? Sprain/Strain/Tear/Other Reason for Visit * Reason Comments Emergency Department Follow-Up [facility] . Encounter Details Date Type Department Care Team (Late st Contact Info) Description 09/03/2023 11:10 AM EDT Office Visit Family Medicine [address] [place] [phone] Lainey Troy DO [address] [place] [address] [place] [id number] Right buttock pain* Allergies No known active allergiesdocumented as of this encounter (statuses as of 09/03/2023) Medications Medication Sig Dispensed Refills Start Date End Date Status Ascorbic Acid (VITAMIN C) 1000 MG TabletIndications :Taken during menstrual cycle Take 1 Tablet by mouth in the morning. Active B-12 500 MCG Oral Tablet Take by mouth. 1 Active Pantoprazole Sodium 40 MG Oral Tablet Delayed Release (Protonix)Indicat ions:Gastroesopha geal reflux disease with esophagitis without hemorrhage Take 1 Tablet by mouth in the morning. 30 minutes before the first meal of the day. Do not crush, split or chew the tablet. 30 Tablet 5 3 Active Cyclobenzaprine HCl 10 MG Oral Tablet (Flexeril) Take 1 Tablet by mouth at bedtime as needed for Muscle spasms. 30 Tablet 2 4 Active Ondansetron HCl 8 MG Oral Tablet 1 tablet by mouth every 8 hours as needed for nausea and/or vomiting 30 Tablet 1 4 Active Complete Oral Capsule Therapy Pack Take by mouth. Active [employer]ICS Flex System w/Device KitIndications:Di et controlled gestational diabetes mellitus (GDM) in second trimester Use to test blood sugars 4 times daily (fasting, 1 hour after breakfast, lunch, and dinner) 1 Kit 4 Active EVIAGENICS In Vitro Strip (Glucose Blood)Indications :Diet controlled gestational diabetes mellitus (GDM) in second trimester Use to test blood sugars 4 times daily (fasting, 1 hour after breakfast, lunch, and dinner) 125 Strip 6 4 Active Ludiauch Delica Lancets 30GIndications:Di et controlled gestational diabetes mellitus (GDM) in second trimester Use to test blood sugars 4 times daily (fasting, 1 hour after breakfast, lunch, and dinner) 200 Each 6 4 Active Aspirin 81 MG Oral Capsule Take by mouth. Active metFORMIN HCl 500 MG Oral Tablet (Glucophage)Indic ations:Supervisio n of high risk in second trimester,Gestati onal diabetes mellitus (GDM) in second trimester controlled on oral hypoglycemic drug Take 1000 mg by mouth with breakfast and 1000 mg by mouth at bedtime; approximately 12 hours apart. 90 Tablet 1 4 Active Cephalexin 500 MG Oral Capsule (Keflex) Take 1 Capsule by mouth in the morning and 1 Capsule at noon and 1 Capsule in the evening and 1 Capsule before bedtime. 4 09/09/19 24 Active DULoxetine HCl 20 MG Oral Capsule Delayed Release Particles (Cymbalta)Indicat ions:Chronic right-sided low back pain with right-sided sciatica,Fibromya lgia Take 1 Capsule by mouth in the morning. Do not cut, crush or chew. 4 09/03/19 24 Discontinued documented as of this encounter (statuses as of 09/03/2023) Active Problems Problem Noted Date Diagnosed Date [...] log; patient aware of upcoming Nutrition visit 07/29/20236540-KYP-lgwsihn stable. Multiple missed readings; encouraged to test and report as instructed. 08/05/20230993-PJY-mfedpybs post prandial lunch and dinner values. Maternal medicine nurse practitioners to review. 08/05/23: RPM reviewed; PP elevations; increase to Metformin 500mg PO with breakfast and evening meal/snack 08/06/23: HgbA1c 5.5% 08/09/23: RPM message received - patient reporting GI symptoms; recommend F/U ADAPT to discuss possibility of switching to insulin; awaiting patient response back 08/12/20233893-APB-xnrnheut elevated fasting blood sugars and post prandial values. Patient agreeable to follow up ADAPT appointment. [facility] PARs messaged to schedule. 08/14/23: [...] can discuss switching to insulin if needed. 08/19/20236388-HIE-cxrnvvn stable (< 50% elevated) 08/26/2023-RPM-3 elevated fasting [...] as of this encounter (statuses as of 09/03/2023) Resolved Problems Problem Noted Date Diagnosed Date Resolved Date Abnormal glucose tolerance i n mother complicating 07/02/2023 07/11/2023 Overview: Elevated early 1 hr GTT, 3 hr testing ordered at 14 weeks documented as of this encounter (statuses as of 09/03/2023) Immunizations Name Administration Dates Next Due DT [...] money to get more. Never true 08/16/2023 [place] Depression Scale Answer Date Recorded [place] Depression Scale Total 13 06/04/2023 The thought [...] Sign Reading Time Taken Comments Blood Pressure 138/80 09/03/2023 11:12 AM EDT Pulse 115 09/03/2023 11:12 AM EDT Temperature - - Respiratory Rate - - Oxygen Saturation 97% 09/03/2023 11:12 AM EDT Inhaled Oxygen Concentration - - Weight 89.5 kg (197 lb 6.4 oz) 09/03/2023 11:12 AM EDT Height - - Body Mass Index 32.85 08/02/2023 4:11 PM EDT documented in this encounter Progress Notes * Lainey Troy, - 09/03/2023 11:15 AM EDT Subjective: Sophie Emmanuel is a 33 year old female. Chief Complaint Patient presents with Emergency Department Follow-Up [facility] 09/02/23. HPI: Sophie Emmanuel presents today for ER follow up. She was seen in the [facility] ER on 09/02/23 for back and hip pain. She is currently 23 weeks . She was also found to have a UTI and was started on keflex. Today she reports having ongoing right lower back pain that goes down the side of her right leg. Itstarted two days ago, got worse so she went to the ER. It is not any better today. She can barely walk. She feels okay when sitting but the pain gets so severe anytime that she moves. Tylenol does not help. Heat does not help. Warm bath does not help. PMH: Patient Active Problem List Diagnosis Menorrhagia [...] Oral Capsule Therapy Pack Take by mouth. EVIAGEN[employer] Flex System w/Device Kit Use to test blood sugars 4 times daily (fasting, 1 hour after breakfast, lunch, and dinner) 1 Kit 0 Ludiauch Verio In Vitro Strip (Glucose Blood) Use to test blood sugars 4 times daily (fasting, 1 hour after breakfast, lunch, and dinner) 125 Strip 6 Ludiauch Delica Lancets 30G Use to test blood [...] the evening and 1 Capsule before bedtime. DULoxetine HCl 20 MG Oral Capsule Delayed Release Particles (Cymbalta) Take 1 Capsule by mouth in the morning. Do not cut, crush or chew. (Patient not taking: Reported on 07/25/2023) No current facility-administered medications for this visit. Review of patient's allergies indicates: No Known Allergies Objective: BP 138/80 | Pulse 115 | Wt 89.5 kg (197 lb 6.4 oz) | LMP 03/08/2023 (Approximate) Comment: Pt said she took her pills correctly and never missed one. Pt said her periods have been all over since nov when she was put on new pill. | SpO2 97% | BMI 32.85 kg/m | BSA 2.03 m General: alert, healthy, well nourished, and well developed Back: no midline tenderness, some pain over the right SI joint but the majority of her pain is in the mid buttock on the right. Extremities: no joint deformities, effusion, or inflammation, no edema Neuro: gait is antalgic ASSESSMENT/PLAN: Right buttock pain (Primary) - off work through the end of the week. Her problem seems musculoskeletal. Advised to see if she can get into her chiropractor earlier (due to be seen next week). Tylenol, heat, ice stretching for pain. Cannot use NSAIDs due to and would like to avoid narcotics. Already on flexeril mcc for her fibromyalgia. Will ask ortho to evaluate as well. - RETURN TO WORK OR SCHOOL - ORTHOPAEDICS REFERRAL OP Return as needed. Lainey Troy DO documented in this encounter Plan of Treatment Upcoming Encounters Date Type Department Care Team (Late st Contact Info) Description 09/25/2023 2:30 PM EDT Imaging Radiology, [facility] [address] [facility] [place] [address] 09/27/2023 4:15 PM EDT Office Visit Gynecology/Obstetrics [facility] [address] [facility] [place] [id number] Tanna Aguilar, MELISSA [address] [facility] [place] [address] 10/24/2023 1:00 PM EDT Imaging Maternal Medicine Imaging, [facility] [address] [place] [phone] 11/21/2023 8:45 AM EDT Imaging Maternal Medicine Imaging, [facility] [address] [place] [phone] Scheduled Referrals Name Type Priority Associated Diagnoses Order Schedule ORTHOPAEDICS REFERRAL OP Referral Within 10 days (routine) Right buttock pain Ordered: 09/03/2023 Health Maintenance Due Date Last Done Comments [...] as of this encounter Visit Diagnoses Diagnosis Right buttock pain- Primary Mylagia and myositis, unspecified documented in this encounter Care Teams Core Dipper Relationship Specialty Start Date End Date Lainey Troy DO [address] [place] [address] [place] [id number] PCP - General Internal Medicine 07/09/16 documented as of this encounter
--- OUTSIDE RECORDS SUMMARY | 2023-11-05 21:04 | External Medical Summary | Summary of Care ---
Author Name Unknown Organization [facility] Address [address] [place] [address] Phone [phone] Care Team Providers Care Press Machine Operator Name Role Phone Lainey Troy DO Primary Care Provider [phone] Reason for Referral * Evaluate & Treat - Unlimited Visits (Within 10 days (routine)) - Authorized Specialty Diagnoses / Procedures Referred By Jess chairez Referred To Contact Physical Therapy / Physical Medicine And Rehab Diagnoses Sacroiliac joint dysfunction of right side Praveen Begum PA-C [address] [place] [address] Referral ID Status Reason Start Date Expiration Date Visits Requested Visits Authorized [id number] Authorized Specialty Services Required 09/07/[phone] Question Answer Referral Priority Within 10 days (routine) Where should this appointment be scheduled? [facility] Comments Right-sided sacroiliitis Reason for Visit * Reason Comments NEW PATIENT Right Encounter Details Date Type Department Care Team (Late st Contact Info) Description 09/07/2023 9:20 AM EDT Office Visit Orthopaedics [facility] [address] [place] [address] Praveen Begum PA-C [address] [place] [phone] Sacroiliac joint dysfunction of right side* Allergies [...] Capsule Therapy Pack Take by mouth. Active [employer] Flex System w/Device KitIndications: t controlled gestational diabetes mellitus (GDM) in second trimester Use to test blood sugars 4 times daily (fasting, 1 hour after breakfast, lunch, and dinner) 1 Kit 07/11/2023 Active [employer] In Vitro Strip (Glucose Blood)Indications: Diet controlled gestational diabetes mellitus (GDM) in second trimester Use to test blood sugars 4 times daily (fasting, 1 hour after breakfast, lunch, and dinner) 125 Strip 6 07/11/2023 Active Realeyesuch Delica Lancets 30GIndications: t controlled gestational diabetes [...] log; patient aware of upcoming Nutrition visit 07/29/20237159-AKJ-ldmqdmk stable. Multiple missed readings; encouraged to test and report as instructed. 08/05/20230739-IYT-nppjnhsx post prandial lunch and dinner values. Maternal medicine nurse practitioners to review. 08/05/23: RPM reviewed; PP elevations; increase to Metformin 500mg PO with breakfast and evening meal/snack 08/06/23: HgbA1c 5.5% 08/09/23: RPM message received - patient reporting GI symptoms; recommend F/U ADAPT to discuss possibility of switching to insulin; awaiting patient response back 08/12/20236027-CNG-lsptntlb elevated fasting blood sugars and post prandial values. Patient agreeable to follow up ADAPT appointment. [facility] PARs messaged to schedule. 08/14/23: [...] can discuss switching to insulin if needed. 08/19/20231360-QZR-suvkumn stable (< 50% elevated) 08/26/2023-RPM-3 elevated fasting [...] money to get more. Never true 08/16/2023 [place] Depression Scale Answer Date Recorded [place] Depression Scale Total 13 06/04/2023 The thought [...] past the buttock or thigh. No x-rays today as she is 24 weeks . Saw the ER, PCP and chiropractor yesterday. States that the severity ofher symptoms are actually slightly decreased after visiting [...] Oral Capsule Therapy Pack Take by mouth. 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 Pleased with today 's care. Call sooner if needed. This chart was completed in part utilizing [employer] Speech Voice Recognition Software. Grammatical errors, random [...] Description 09/25/2023 2:30 PM EDT Imaging Radiology, [facility] [address] [place] [address] [place] [address] 09/27/2023 4:15 PM EDT Office Visit Gynecology/Obstetrics [facility] [address] [facility] [place] [address] Tanna Aguilar, [facility] [address] [place] [address] 10/23/2023 3:15 PM EDT Office Visit Orthopaedics [facility] [address] [place] [address] Praveen Begum PA-C [address] [place] [address] 10/24/2023 1:00 PM EDT Imaging Maternal Medicine Imaging, [address] [place] [phone] 11/21/2023 8:45 AM EDT Imaging Maternal Medicine Imaging, [place] [address] [facility] [place] [phone] Scheduled Referrals Name Type Priority Associated Diagnoses [...] sacrum documented in this encounter Care Teams Press Machine Operator Relationship Specialty Start Date End Date Lainey Troy DO [address] [place] [address] [place] [address] PCP - General Internal Medicine 07/09/16 documented as of this encounter
[2023-11-06] MEDS: ACETAMINOPHEN 325 MG TAB PO PRN (02:23)
[2023-11-06] MEDS: CALCIUM CARBONATE 500 MG CHEWABLE TAB PO PRN (04:04)
--- NOTE | 2023-11-06 06:35 | Progress Note ---
Date of Service November 06, 2023 Assessment & Plan (1) with third trimester bleeding, antepartum: Plan: Doing well No bleeding Reactive NST d/c home with instructions including pelvic rest Admission and Anticipated Discharge Date Admission Date: November 05, 2023 Results & Data Vital Signs (Past 12 Hours) Vital Signs Temp Pulse Resp BP Pulse Ox O2 Del Method 11/06/23 04:26 90 135/83 11/06/23 04:01 36.6 C 86 18 156/87 H 11/05/23 23:55 103 H 97 11/05/23 23:50 100 H 97 11/05/23 23:45 98 H 96 11/05/23 23:40 95 H 96 11/05/23 23:35 102 H 97 11/05/23 23:30 97 H 96 11/05/23 23:25 93 H 97 11/05/23 23:20 93 H 97 11/05/23 23:15 98 H 97 11/05/23 23:10 94 H 96 11/05/23 23:05 91 H 97 11/05/23 23:04 36.8 C 83 18 141/83 H 11/05/23 23:00 82 97 11/05/23 22:55 86 97 11/05/23 22:50 86 97 11/05/23 22:38 94 H 96 11/05/23 22:33 90 97 11/05/23 22:28 96 H 97 11/05/23 22:23 89 97 11/05/23 22:18 93 H 97 11/05/23 22:13 98 H 97 11/05/23 22:08 94 H 97 11/05/23 22:03 103 H 97 11/05/23 21:58 94 H 97 11/05/23 21:53 94 H 97 11/05/23 21:48 91 H 98 11/05/23 21:43 94 H 97 11/05/23 21:38 89 97 11/05/23 21:33 91 H 97 11/05/23 21:28 90 97 11/05/23 21:23 88 97 11/05/23 21:18 94 H 97 11/05/23 21:13 92 H 97 11/05/23 19:05 36.6 C 18 11/05/23 19:05 Room Air 11/05/23 19:03 36.6 C 87 18 146/92 H
--- NOTE | 2023-11-06 06:36 | Progress Note ---
Date of Service November 06, 2023 Assessment & Plan (1) with third trimester bleeding, antepartum: Plan: RTC for 2nd dose of steroids at 16;00hr Admission and Anticipated Discharge Date Admission Date: November 05, 2023 Results & Data Vital Signs (Past 12 Hours) Vital Signs Temp Pulse Resp BP Pulse Ox O2 Del Method 11/06/23 04:26 90 135/83 11/06/23 04:01 36.6 C 86 18 156/87 H 11/05/23 23:55 103 H 97 11/05/23 23:50 100 H 97 11/05/23 23:45 98 H 96 11/05/23 23:40 95 H 96 11/05/23 23:35 102 H 97 11/05/23 23:30 97 H 96 11/05/23 23:25 93 H 97 11/05/23 23:20 93 H 97 11/05/23 23:15 98 H 97 11/05/23 23:10 94 H 96 11/05/23 23:05 91 H 97 11/05/23 23:04 36.8 C 83 18 141/83 H 11/05/23 23:00 82 97 11/05/23 22:55 86 97 11/05/23 22:50 86 97 11/05/23 22:38 94 H 96 11/05/23 22:33 90 97 11/05/23 22:28 96 H 97 11/05/23 22:23 89 97 11/05/23 22:18 93 H 97 11/05/23 22:13 98 H 97 11/05/23 22:08 94 H 97 11/05/23 22:03 103 H 97 11/05/23 21:58 94 H 97 11/05/23 21:53 94 H 97 11/05/23 21:48 91 H 98 11/05/23 21:43 94 H 97 11/05/23 21:38 89 97 11/05/23 21:33 91 H 97 11/05/23 21:28 90 97 11/05/23 21:23 88 97 11/05/23 21:18 94 H 97 11/05/23 21:13 92 H 97 11/05/23 19:05 36.6 C 18 11/05/23 19:05 Room Air 11/05/23 19:03 36.6 C 87 18 146/92 H
[2023-11-06] MEDS ORDERED: BETAMETH SOD PHOS/ACETATE IA 6 MG/ML IM SCH (16:30)
== END 2023-11-06 06:47 | disposition home or self-care (01) ==
LOC: OPB 13:39 → 4S1 13:40 → INTOOBSV 16:34

== ENCOUNTER 2023-11-25 08:00 | Inpatient (IN) ==
--- OUTSIDE RECORDS SUMMARY | 2023-11-25 08:08 | External Medical Summary | Summary of Care ---
Author Name Unknown Organization [facility] Address [address] [place] [address] Phone [phone] Care Team Providers Care Account Development Specialist Name Role Phone Lainey Troy DO Primary Care Provider Reason for Visit * Reason Onset Date Comments Referral 11/18/2023 Encounter Details Date Type Department Care Team (Late st Contact Info) Description 11/18/2023 Telephone Service Tech/Welder Obstetrics Maternal Medicine, [place] [address] [place] [address] SmythNurse Service Tech/Welder [facility] [address] [place] [address] Referral Allergies No known active allergiesdocumented as of this encounter (statuses as of 11/21/2023) Medications Medication Sig Dispensed Refills Start Date [...] Capsule Therapy Pack Take by mouth. Active InfomousTouch VerFriendFinder Networks Flex System w/Device KitIndications: t controlled gestational diabetes mellitus (GDM) in second trimester Use to test blood sugars 4 times daily (fasting, 1 hour after breakfast, lunch, and dinner) 1 Kit 07/11/2023 Active InfomousToWebNotes VerFriendFinder Networks In Vitro Strip (Glucose Blood)Indications: Diet controlled gestational diabetes mellitus (GDM) in second trimester Use to test blood sugars 4 times daily (fasting, 1 hour after breakfast, lunch, and dinner) 125 Strip 6 07/11/2023 Active InfomousTouch Delica Lancets 30GIndications: t controlled gestational diabetes mellitus (GDM) in second trimester Use to test blood sugars 4 times daily (fasting, 1 hour after breakfast, lunch, and dinner) 200 Each 6 07/11/2023 Active Aspirin 81 MG Oral Capsule Take by mouth. Active Cyclobenzaprine HCl 10 MG Oral Tablet (Flexeril) Take 1 Tablet by mouth at bedtime as needed for Muscle spasms. 30 Tablet 2 09/30/2023 Active Blood Pressure KitIndications:Ges tational hypertension, third trimester Check BP twice a day 1 Kit 11/11/2023 Active Labetalol HCl 100 MG Oral Tablet (Normodyne)Indicat ions:Gestational hypertension, third trimester Take 1 Tablet by mouth in the morning and 1 Tablet before bedtime. 180 Tablet 3 11/14/2023 Active metFORMIN HCl 500 MG Oral Tablet (Glucophage)Indica tions:Supervision of high risk in second trimester,Gestatio nal diabetes mellitus (GDM) in second trimester controlled on oral hypoglycemic drug Take 1000 mg by mouth with breakfast and 1000 mg by mouth at bedtime; approximately 12 hours apart. 90 Tablet 1 11/14/2023 Active documented as of this encounter (statuses as of 11/21/2023) Active Problems Problem Noted Date Diagnosed Date Gestational hypertension 07/16/2023 Overview: Patient reports history of elevated [...] 108/74 06/04/23 128/82 03/15/23 126/84 12/18/22 132/92 Gestational diabetes mellitu s (GDM) controlled on [...] contact for RPM. Message sent to the [facility] to schedule FU ADAPT 07/23/23: [...] log; patient aware of upcoming Nutrition visit 07/29/20237840-KLU-inpdrip stable. Multiple missed readings; encouraged to test and report as instructed. 08/05/20230805-OGP-ywfhtysg post prandial lunch and dinner values. Maternal medicine nurse practitioners to review. 08/05/23: RPM reviewed; PP elevations; increase to Metformin 500mg PO with breakfast and evening meal/snack 08/06/23: HgbA1c 5.5% 08/09/23: RPM message received - patient reporting GI symptoms; recommend F/U ADAPT to discuss possibility of switching to insulin; awaiting patient response back 08/12/20233719-OHW-vfvikbxb elevated fasting blood sugars and post prandial values. Patient agreeable to follow up ADAPT appointment. [facility] PARs messaged to schedule. 08/14/23: ADAPT follow-up [...] can discuss switching to insulin if needed. 08/19/20234875-FKN-bxmmjla stable (< 50% elevated) 08/26/2023-RPM-3 elevated fasting [...] lunch and the 1000 mg at bedtime. 09/30/20230703-QIY-hvgeqsif 4 of the past 7 days; overall stable. Messaged to be consistent with testing/reporting four times daily 10/07/20232933-RKH-zyeqwsy stable (< 50% elevated) 10/14/20230580-QBO-hcrweld stable. 3 of 7 elevated post prandial dinner values; advised to watch diet and will follow up next week 10/21/20239596-VDA-ipsjrwj stable (< 50 % elevated) 10/29/20235077-EAJ-pxtayyn stable (2 elevated post prandial breakfast and 2 elevated post prandial dinner values) 11/04/20238215-OSQ-doqpds 11/11/20238424-ILH-aezgkvg stable (< 50% elevated) 11/18/20237779-JMP-jblpgxqld via eb and messaging. Overall stable (rare elevation) Last Assessment & Plan: Working with ADAPT. High-risk 06/04/2023 Obesity affecting 06/04/2023 Overview: Pre-gravid BMI 34.11 (#205, 5'5") Last Assessment & Plan: Low risk NIPT appreciated as well as early 1'GTT and 3'GTT leading to diagnosis of GDM. Tobacco smoking complicating Overview: Currently smoking 1/2 pack of cigarettes [...] as of this encounter (statuses as of 11/21/2023) Resolved Problems Problem Noted Date Diagnosed Date Resolved Date Supervision of high-risk pre gnancy, second trimester 07/16/2023 11/11/2023 Class 1 obesity 07/16/2023 11/11/2023 Abnormal glucose tolerance i n mother complicating 07/02/2023 07/11/2023 Overview: Elevated early 1 hr GTT, 3 hr testing ordered at 14 weeks documented as of this encounter (statuses as of 11/21/2023) Immunizations Name Administration Dates Next Due DT [...] Tobacco: Every Day Cigarettes Smokeless Tobacco: Never Comments:/ post dep ression - cut back since [...] money to get more. Never true 08/16/2023 Lowell Depression Scale Answer Date Recorded Lowell Depression Scale Total 13 06/04/2023 The thought [...] encounter Miscellaneous Notes * Telephone Encounter - Romy Casas OSA - 11/21/2023 8:13 AM EDT Phone call to patient. Left message on [employer] voice mail. Encouraged patient to return call to [facility] assist with scheduling. Also sent MyG message. * Telephone Encounter - Romy Casas OSA - 11/19/2023 8:19 AM EDT Phone call to patient. Left message on [employer]'s voice mail. Encouraged patient to return call to [facility] assist with scheduling. * Telephone Encounter - Maryan Lyn CCMA - 11/18/2023 1:40 PM EDT Estimated Date of Delivery: 12/30/23 Please schedule for 45 MINUTE CONSULT SIMPLE MEDICAL WITH AUTOMATION CONTROLS SPECIALIST, in time frame of within 1 week at [facility] with the indication of GHTN. Follow-up ultrasound scheduled 11/20. Referring Provider: Bonnie Almanzar CRNP documented in this encounter Plan of Treatment Upcoming Encounters Date Type Department Care Team (Late st Contact Info) Description 11/21/2023 8:45 AM EDT Imaging Maternal Medicine Imaging, Lizeth Man [address] [place] [id number] 11/21/2023 8:45 AM EDT Office Visit Service Tech/Welder Obstetrics Maternal Medicine, Lizeth Man [address] [place] [address] [facility]bella Fowler, [facility] [address] [facility] [address] 11/21/2023 9:45 AM EDT Office Visit Gynecology/Obstetrics Jasmin Chengs [address] [place] [address] Sobia Gould CRNP [address] [place] [address] Man, Non Stress Tests Lizeth [address] [place] [address] 11/25/2023 9:30 AM EDT Office Visit Gynecology/Obstetrics Jasmin Chengs [address] [place] [address] Sobia Gould CRNP [address] [place] [address] Man, Non Stress Tests Lizeth [address] [place] [address] 11/28/2023 1:45 PM EDT Office Visit Gynecology/Obstetrics Jasmin Chengs [address] [place] [address] Sobia Gould CRNP [address] [place] [address] Donovan Non Stress Tests Lizeth [address] [place] [address] 12/02/2023 9:30 AM EDT Office Visit Gynecology/Obstetrics [address] [place] [address] Sobia Gould CRNP [address] [place] [address] 12/05/2023 1:45 PM EDT Office Visit Gynecology/Obstetrics Jasmin Chengs [address] [place], [place] [address] Sobia Gould CRNP [address] [place] [address] Donovan Non Stress Tests Lizeth [address] [place] [address] 12/09/2023 9:00 AM EDT Office Visit Gynecology/Obstetrics Floresmatthew Chengs [address] [place] [address] Flower Jordan PA-C [address] [facility] [place] [address] Donovan Non Stress Tests Lizeth [address] [place] [address] 12/12/2023 1:45 PM EDT Office Visit Gynecology/Obstetrics Jasmin Chengs [address] [place] [address] Sobia Gould CRNP [address] [place] [address] Donovan Non Stress Tests Lizeth [address] [place] [address] 12/16/2023 9:30 AM EDT Office Visit Gynecology/Obstetrics [address] [place] [address] Sobia Gould CRNP [address] [place] [address] 12/19/2023 1:45 PM EDT Office Visit Gynecology/Obstetrics Flores's Man [address] [place] [address] Sobia Gould CRNP [address] [place] [address] Donovan Non Stress Tests Lizeth [address] [place] [address] 12/23/2023 2:30 PM EDT Office Visit Gynecology/Obstetrics Flores's Man [address] [place] [address] Evaristo Harper MD [address] [place] [address] Donovan Non Stress Tests Lizeth [address] [place] [address] 12/26/2023 1:45 PM EDT Office Visit Gynecology/Obstetrics Flores's Man [address] [address] Sobia Gould CRNP [address] [place] [address] Donovan Non Stress Tests Lizeth [address] [place] [address] 12/30/2023 1:00 PM EST Office Visit Gynecology/Obstetrics Florse's Man [address] [place] [address] Bonnie Almanzar CRNP [address] [place] [address] ManAdelia kim Stress Tests Lizeth [address] [place] [address] Health Maintenance Due Date Last Done Comments Pneumococcal Vaccine: Pediatrics (0 to 5 Years) and At-Risk Patients (6 to 64 Years) (2 of 2 - PCV) 07/09/2017 07/09/2016 Depression Screening 05/31/2021 05/31/2020 COVID-19 Vaccine ( season) 2023 Influenza Vaccine (FLU shot) (#1) 2023 03/14/2018, 02/13/2011, 12/13/2008 GFR 11/17/2024 11/18/2023, 10/26, 10/03/2023, Additional history exists Pap Smear 06/03/2026 06/04/2023, 03/28, 06/06/2016, Additional [...] filedocumented as of this encounter Care Teams Account Development Specialist Relationship Specialty Start Date End Date Lainey Troy DO [address] [place] [address] [place] [address] PCP - General Internal Medicine 07/09/16 documented as of this encounter
--- OUTSIDE RECORDS SUMMARY | 2023-11-25 08:08 | External Medical Summary | Summary of Care ---
Author Name Unknown Organization [facility] Address [address] [place] [address] Phone [phone] Care Team Providers Care Manager Retail Store Name Role Phone TroyLainey Mayfield Primary Care Provider [phone] Reason for Visit * Reason Onset Date Comments TRIAGE 11/24/2023 Encounter Details Date Type Department Care Team (Late st Contact Info) Description 11/24/[address] [facility] Gynecology and Obstetrics [address] [place] [address] Annie Valle, [facility], CN [address] [place], [place] [phone] TRIAGE Allergies No known active allergiesdocumented as of this encounter (statuses as of 11/24/2023) Medications Medication Sig Dispensed Refills Start Date [...] Capsule Therapy Pack Take by mouth. Active EnerVaultTouch Verio Flex System w/Device KitIndications: t controlled gestational diabetes mellitus (GDM) in second trimester Use to test blood sugars 4 times daily (fasting, 1 hour after breakfast, lunch, and dinner) 1 Kit 07/11/2023 Active Simple Energy In Vitro Strip (Glucose Blood)Indications: Diet controlled gestational diabetes mellitus (GDM) in second trimester Use to test blood sugars 4 times daily (fasting, 1 hour after breakfast, lunch, and dinner) 125 Strip 6 07/11/2023 Active TeamDynamix Delica Lancets 30GIndications: t controlled gestational diabetes [...] as of this encounter (statuses as of 11/24/2023) Active Problems Problem Noted Date Diagnosed Date Chronic hypertension affecting 024 Overview: Patient reports history of elevated blood pressure in the past while taking hormonal control. Blood pressure currently stable in . Recommend bASA 81 mg daily; suspect chronic hypertension as well as several other preeclampsia risk factors (Class 1 obesity, nulliparity). BP Readings from Last 5 Encounters: 07/02/23 108/74 06/04/23 128/82 03/15/23 126/84 12/18/22 132/92 12/10/22 130/90 Last Assessment & Plan: Stable BP, now on labetalol since 11/13. Staff has attempted to contact patient several times to schedule formal MFM consult to confirm GHTN diagnosis vs progression of CHTN and therefore delivery recommendations. Thus far unable to reach her to schedule an appt. BP Readings from Last 6 Encounters: 11/21/23 122/92 11/18/23 118/82 11/14/23 138/96 11/11/23 118/92 11/07/23 140/88 10/24/23 126/82 Gestational diabetes mellitu s (GDM) controlled on [...] Elevated FBS and PP's. Msg to [facility] to schedule ADAPT visit. Nutrition visit schedule 08/02/23. 07/25/23: ADAPT visit complete; elevated FBS and some PP values; patient deferred starting insulin but agreeable to Metformin; ordered Metformin 500mg PO daily with evening meal/snack; recommend fasting 8-10 hours overnight along with having a bedtime snack of 30g CHO paired with protein; recommend keeping food log; patient aware of upcoming Nutrition visit 07/29/20234792-HQO-fggtshx stable. Multiple missed readings; encouraged to test and report as instructed. 08/05/20239600-MUJ-oorwmrow post prandial lunch and dinner values. Maternal medicine nurse practitioners to review. 08/05/23: RPM reviewed; PP elevations; increase to Metformin 500mg PO with breakfast and evening meal/snack 08/06/23: HgbA1c 5.5% 08/09/23: RPM message received - patient reporting GI symptoms; recommend F/U ADAPT to discuss possibility of switching to insulin; awaiting patient response back 08/12/20239906-ALE-ctbyobne elevated fasting blood sugars and post prandial values. Patient agreeable to follow up ADAPT appointment. [facility] PARs messaged to schedule. 08/14/23: [...] can discuss switching to insulin if needed. 08/19/20234365-YCS-brzferh stable (< 50% elevated) 08/26/2023-RPM-3 elevated fasting [...] lunch and the 1000 mg at bedtime. 07/08/24: RPM reviewed; Stable overall 09/09/23: RPM reviewed; Stable overall; continue Metformin 09/16/23: RPM reviewed; Stable overall; continue Metformin 09/23/23: RPM reviewed; Stable, Continue Metformin 1 tablet with breakfast and 1 tablet with lunch and the 1000 mg at bedtime. 09/30/20238388-KRN-iqhylzux 4 of the past 7 days; overall stable. Messaged to be consistent with testing/reporting four times daily 10/07/20237671-XKH-fkmjxlk stable (< 50% elevated) 10/14/20230851-SCE-zvhknhs stable. 3 of 7 elevated post prandial dinner values; advised to watch diet and will follow up next week 10/21/20238232-LQD-mvupbat stable (< 50 % elevated) 10/29/20239143-SCW-qnezhxu stable (2 elevated post prandial breakfast and 2 elevated post prandial dinner values) 11/04/20236696-BBZ-ahfnpq 11/11/20233965-DBB-nqzkrzj stable (< 50% elevated) 11/18/20233970-WWZ-fowqomqus via eb and messaging. Overall stable (rare [...] as of this encounter (statuses as of 11/24/2023) Resolved Problems Problem Noted Date Diagnosed Date Resolved Date Supervision of high-risk pre gnancy, second trimester 07/16/2023 11/11/2023 Class 1 obesity 07/16/2023 11/11/2023 Abnormal glucose tolerance i n mother complicating 07/02/2023 07/11/2023 Overview: Elevated early 1 hr GTT, 3 hr testing ordered at 14 weeks documented as of this encounter (statuses as of 11/24/2023) Immunizations Name Administration Dates Next Due DT [...] money to get more. Never true 08/16/2023 Stanford Depression Scale Answer Date Recorded Stanford Depression Scale Total 13 06/04/2023 The thought [...] encounter Miscellaneous Notes * Telephone Encounter - Annie Valle DNP, CNM - 11/24/2023 8:37 AM EDT Took triage call from patient at [phone] with concerns of contractions q 5-7 minutes. She reports she is delivering at [facility] and that the answering service put her through to [place] instead of OB Team. Discussed if contractions are painful and regular she needs to report to the hospital for further evaluation. Also, TigerTexted her information to Dr. Hernández, contact center assistant MD so he could call her as well for triage. documented in this encounter Plan of Treatment Upcoming Encounters Date Type Department Care Team (Late st Contact Info) Description 11/25/2023 9:30 AM EDT Office Visit Gynecology/Obstetrics [address] [place] [address] Sobia Gould CRNP [address] [place] [address] Donovan Non Stress Tests Lizeth [address] [place] [address] 11/26/2023 7:30 AM EDT Telemedicine Commercial Construction Estimator Obstetric MFM [facility], Rahul [address] [facility] [place] [address] Delores Rodrigues, NELDA [address] [place] [facility] [place] [address] 11/28/2023 1:45 PM EDT Office [facility] [address] [place], [place] [address] Sobia Gould CRNP [address] [place], [place] [address] Donovan Non Stress Tests Lizeth [address] [place], [place] [address] 12/02/2023 9:30 AM EDT Office Visit Gynecology/Obstetrics [address] [place] [address] Sobia Gould CRNP [address] [place] [address] 12/05/2023 1:45 PM EDT Office Visit Gynecology/Obstetrics Mark'judy Man [address] [place] [address] Sobia Gould CRNP [address] [place], [place] [address] Donovan Non Stress Tests Lizeth [address] [place] [address] 12/09/2023 9:00 AM EDT Office Visit Gynecology/Obstetrics Jasmin Man [address] [place] [address] Flower Jordan PA-C [address] [place] [address] [place] [address] Man, Non Stress Tests Lizeth [address] [place] [address] 12/12/2023 1:45 PM EDT Office Visit Gynecology/Obstetrics Jasmin Man [address] [place] [address] Sobia Gould CRNP [address] [place] [address] Donovan, Non Stress Tests Lizeth [address] [place] [address] 12/16/2023 9:30 AM EDT Office Visit Gynecology/Obstetrics [address] [place] [address] Sobia Gould CRNP [address] [place] [address] 12/18/2023 10:15 AM EDT Imaging Radiology, [place] [address] [place] [address] 12/19/2023 1:45 PM EDT Office Visit Gynecology/Obstetrics Jasmin Man [address] [place] [address] Sobia Gould CRNP [address] [place] [address] Donovan, Non Stress Tests Lizeth [address] [place] [address] 12/23/2023 2:30 PM EDT Office Visit Gynecology/Obstetrics Jasmin Man [address] [place] [address] Evaristo Harper MD [address] [place] [address] Man, Non Stress Tests Lizeth [address] [place] [address] 12/26/2023 1:45 PM EDT Office Visit Gynecology/Obstetrics Jasmin Chengs [address] [place] [address] Sobia Gould CRNP [address] [place] [address] Donovan Non Stress Tests Lizeth [address] [place] [address] 12/30/2023 1:00 PM EST Office Visit Gynecology/Obstetrics Jasmin Chengs [address] [address] Bonnie Almanzar CRNP [address] [place] [address] Donovan Non Stress Tests Lizeth [address] [place] [address] Health Maintenance Due Date Last Done Comments Pneumococcal Vaccine: Pediatrics (0 to 5 Years) and At-Risk Patients (6 to 64 Years) (2 of 2 - PCV) 07/09/2017 07/09/2016 Depression Screening 05/31/2021 05/31/2020 COVID-19 Vaccine ( - 2023- season) 2023 Influenza Vaccine (FLU shot) (#1) [...] filedocumented as of this encounter Care Teams Manager Retail Store Relationship Specialty Start Date End Date Lainey Troy DO [address] [place] [address] [place] [phone] PCP - General Internal Medicine 07/09/16 documented as of this encounter
--- OUTSIDE RECORDS SUMMARY | 2023-11-25 08:08 | External Medical Summary | Summary of Care ---
Author Name Unknown Organization [facility] Address [address] [place] [address] Phone [phone] Care Team Providers Care Fabricator Artificial Breast Name Role Phone Lainey Troy DO Primary Care Provider Reason for Visit * Reason Onset Date Comments Referral 11/18/2023 Encounter Details Date Type Department Care Team (Late st Contact Info) Description 11/18/2023 Telephone Controls Technician Obstetrics Maternal Medicine, [place] [address] [place] [address] AshlandNurse Controls Technician [facility] [address] [place] [address] Referral Allergies No known active allergiesdocumented as of this encounter (statuses as of 11/22/2023) Medications Medication Sig Dispensed Refills Start Date [...] Capsule Therapy Pack Take by mouth. [employer] Verio Flex System w/Device KitIndications: t controlled gestational diabetes mellitus (GDM) in second trimester Use to test blood sugars 4 times daily (fasting, 1 hour after breakfast, lunch, and dinner) 1 Kit 07/11/2023 [employer] Software TechnologiesToGridCure [employer] In Vitro Strip (Glucose Blood)Indications: Diet controlled gestational diabetes mellitus (GDM) in second trimester Use to test blood sugars 4 times daily (fasting, 1 hour after breakfast, lunch, and dinner) 125 Strip 6 07/11/2023 [employer] TechnologiesTouch Delica Lancets 30GIndications: t controlled gestational diabetes [...] as of this encounter (statuses as of 11/22/2023) Active Problems Problem Noted Date Diagnosed Date [...] reviewed; Elevated FBS and PP's. Msg to [facility] to schedule ADAPT visit. Nutrition visit schedule 08/02/23. 07/25/23: ADAPT visit complete; elevated FBS and some PP values; patient deferred starting insulin but agreeable to Metformin; ordered Metformin 500mg PO daily with evening meal/snack; recommend fasting 8-10 hours overnight along with having a bedtime snack of 30g CHO paired with protein; recommend keeping food log; patient aware of upcoming Nutrition visit 07/29/20230549-WFJ-pcywdmv stable. Multiple missed readings; encouraged to test and report as instructed. 08/05/20236948-YIJ-kzwbwzop post prandial lunch and dinner values. Maternal medicine nurse practitioners to review. 08/05/23: RPM reviewed; PP elevations; increase to Metformin 500mg PO with breakfast and evening meal/snack 08/06/23: HgbA1c 5.5% 08/09/23: RPM message received - patient reporting GI symptoms; recommend F/U ADAPT to discuss possibility of switching to insulin; awaiting patient response back 08/12/20233698-FWU-zydjrevq elevated fasting blood sugars and post prandial values. Patient agreeable to follow up ADAPT appointment. [facility] messaged to schedule. 08/14/23: ADAPT follow-up completed. [...] can discuss switching to insulin if needed. 08/19/20231171-BRO-veqjdst stable (< 50% elevated) 08/26/2023-RPM-3 elevated fasting [...] lunch and the 1000 mg at bedtime. 09/30/20230872-VLO-gxkpuvxa 4 of the past 7 days; overall stable. Messaged to be consistent with testing/reporting four times daily 10/07/20237421-FDQ-awchlxx stable (< 50% elevated) 10/14/20232303-CHB-aocjjzi stable. 3 of 7 elevated post prandial dinner values; advised to watch diet and will follow up next week 10/21/20230011-MDH-qexbzwv stable (< 50 % elevated) 10/29/20236798-WCW-ekwokcb stable (2 elevated post prandial breakfast and 2 elevated post prandial dinner values) 11/04/20237533-CSM-pkbuly 11/11/20238138-BBL-yprzvlq stable (< 50% elevated) 11/18/20232208-JTN-qdxcwdodr via eb and messaging. Overall stable (rare [...] as of this encounter (statuses as of 11/22/2023) Resolved Problems Problem Noted Date Diagnosed Date Resolved Date Supervision of high-risk pre gnancy, second trimester 07/16/2023 11/11/2023 Class 1 obesity 07/16/2023 11/11/2023 Abnormal glucose tolerance i n mother complicating 07/02/2023 07/11/2023 Overview: Elevated early 1 hr GTT, 3 hr testing ordered at 14 weeks documented as of this encounter (statuses as of 11/22/2023) Immunizations Name Administration Dates Next Due DT [...] money to get more. Never true 08/16/2023 Thompson Depression Scale Answer Date Recorded Thompson Depression Scale Total 13 06/04/2023 The thought [...] Telephone Encounter - Romy Casas OSA - 11/22/2023 7:50 AM EDT multiple unsuccessful attempts to contact pt, sent letter * Telephone Encounter - Romy Casas OSA - 11/21/2023 8:13 AM EDT Phone call to patient. Left message on Fracture's voice mail. [facility] Also sent MyG message. * Telephone Encounter - Romy Casas OSA - 11/19/2023 8:19 AM EDT Phone call to patient. Left message on Fracture's voice mail. [facility] * Telephone Encounter - Maryan Lyn CCMA - 11/18/2023 1:40 PM EDT Estimated Date of Delivery: 12/30/23 Please schedule for 45 MINUTE CONSULT SIMPLE MEDICAL WITH [employer]IALYZER, in time frame of within 1 week at location [facility] with the indication of GHTN. Follow-up ultrasound scheduled 11/20. Referring Provider: Bonnie Almanzar CRNP documented in this encounter Plan of Treatment Upcoming Encounters Date Type Department Care Team (Late st Contact Info) Description 11/25/2023 9:30 AM EDT Office Visit Gynecology/Obstetrics Jasmin Man [address] [place] [address] Sobia Gould CRNP [address] [place] [address] [place] Non Stress Tests Lizeth [address] [place] [address] 11/28/2023 1:45 PM EDT Office Visit Gynecology/Obstetrics Jasmin Man [address] [place] [address] Sobia Gould CRNP [address] [place], [place] [address] Donovan Non Stress Tests Lizeth [address] [place], [place] [address] 12/02/2023 9:30 AM EDT Office Visit Gynecology/Obstetrics [address] [place] [address] Sobia Gould CRNP [address] [place] [address] 12/05/2023 1:45 PM EDT Office Visit Gynecology/Obstetrics Jasmin Man [address] [place] [address] Sobia Gould CRNP [address] [place] [address] Adelia Man Stress Tests Lizeth [address] [place] [address] 12/09/2023 9:00 AM EDT Office Visit Gynecology/Obstetrics Jasmin Man [address] [place] [address] Flower Jordan PA-C [address] [place] [address] Adelia Man Stress Tests Lizeth [address] [place] [address] 12/12/2023 1:45 PM EDT Office Visit Gynecology/Obstetrics Jasmin Man [address] [place] [address] Sobia Gould CRNP [address] [place] [address] Adelia Man Stress Tests Lizeth [address] [place] [address] 12/16/2023 9:30 AM EDT Office Visit Gynecology/Obstetrics [address] [place] [address] Sobia Gould CRNP [address] [place] [address] 12/19/2023 1:45 PM EDT Office Visit Gynecology/Obstetrics Jasmin Man [address] [place] [address] Sobia Gould CRNP [address] [place] [address] Donovan, Non Stress Tests Lizeth [address] [place] [address] 12/23/2023 2:30 PM EDT Office Visit Gynecology/Obstetrics Jasmin Man [address] [place] [address] Evaristo Harper MD [address] [place] [address] Donovan Non Stress Tests Lizeth [address] [place] [address] 12/26/2023 1:45 PM EDT Office Visit Gynecology/Obstetrics Jasmin Man [address] [place] [address] Sobia Gould CRNP [address] [place] [address] Donovan Non Stress Tests Lizeth [address] [place] [address] 12/30/2023 1:00 PM EST Office Visit Gynecology/Obstetrics Jasmin Man [address] [place] [address] Bonnie Almanzar CRNP [address] [place] [address] Donovan Non Stress Tests Lizeth [address] [place] [address] Health Maintenance Due Date Last Done Comments Pneumococcal Vaccine: Pediatrics (0 to 5 Years) and At-Risk Patients (6 to 64 Years) (2 of 2 - PCV) 07/09/2017 07/09/2016 Depression Screening 05/31/2021 05/31/2020 COVID-19 Vaccine (1 - season) 2023 Influenza Vaccine (FLU shot) (#1) [...] filedocumented as of this encounter Care Teams Fabricator Artificial Breast Relationship Specialty Start Date End Date Lainey Troy DO [address] [place] [address] [place] [id number] PCP - General Internal Medicine 07/09/16 documented as of this encounter
--- OUTSIDE RECORDS SUMMARY | 2023-11-25 08:08 | External Medical Summary | Summary of Care ---
Author Name Unknown Organization [facility] Address [address] [place] [address] Phone [phone] Care Team Providers Care Investigation Officer Name Role Phone TroyLainey Primary Care Provider Reason for Visit * Reason Comments Return Visit Encounter Details Date Type Department Care Team (Late st Contact Info) Description 11/21/2023 9:45 AM EDT Office Visit Gynecology/Obstetric s [facility] [address] [place] [address] Sobia Gould CRNP [address] [place] [address] Donovan, Non Stress Tests Lizeth [address] [place] [address] High-risk in third trimester*; Obesity affecting , antepartum, unspecified obesity type; Tobacco smoking affecting , antepartum; Fibromyalgia; Gestational diabetes mellitus (GDM) controlled on oral hypoglycemic drug, antepartum; Gestational hypertension, third trimester Allergies No known active allergiesdocumented as [...] Capsule Therapy Pack Take by mouth. Active [employer] Flex System w/Device KitIndications: t controlled gestational diabetes mellitus (GDM) in second trimester Use to test blood sugars 4 times daily (fasting, 1 hour after breakfast, lunch, and dinner) 1 Kit 07/11/2023 [employer] In Vitro Strip (Glucose Blood)Indications: Diet controlled gestational diabetes mellitus (GDM) in second trimester Use to test blood sugars 4 times daily (fasting, 1 hour after breakfast, lunch, and dinner) 125 Strip 6 07/11/2023 Active [employer] Delica Lancets 30GIndications: t controlled gestational diabetes [...] reviewed; Elevated FBS and PP's. Msg to [facility] to schedule ADAPT visit. Nutrition visit schedule 08/02/23. 07/25/23: ADAPT visit complete; elevated FBS and some PP values; patient deferred starting insulin but agreeable to Metformin; ordered Metformin 500mg PO daily with evening meal/snack; recommend fasting 8-10 hours overnight along with having a bedtime snack of 30g CHO paired with protein; recommend keeping food log; patient aware of upcoming Nutrition visit 07/29/20238738-LHE-cbzabuq stable. Multiple missed readings; encouraged to test and report as instructed. 08/05/20232495-KNK-jdtifjxl post prandial lunch and dinner values. Maternal medicine nurse practitioners to review. 08/05/23: RPM reviewed; PP elevations; increase to Metformin 500mg PO with breakfast and evening meal/snack 08/06/23: HgbA1c 5.5% 08/09/23: RPM message received - patient reporting GI symptoms; recommend F/U ADAPT to discuss possibility of switching to insulin; awaiting patient response back 08/12/20234539-ALL-wnwnfxqn elevated fasting blood sugars and post prandial values. Patient agreeable to follow up ADAPT appointment. [facility] messaged to schedule. 08/14/23: [...] can discuss switching to insulin if needed. 08/19/20239598-URW-jmxtesc stable (< 50% elevated) 08/26/2023-RPM-3 elevated fasting [...] lunch and the 1000 mg at bedtime. 09/30/20239531-STE-vmmukhaq 4 of the past 7 days; overall stable. Messaged to be consistent with testing/reporting four times daily 10/07/20236915-ARD-mmgocrl stable (< 50% elevated) 10/14/20232523-AWA-qfddwip stable. 3 of 7 elevated post prandial dinner values; advised to watch diet and will follow up next week 10/21/20238024-VRR-ldvwhrj stable (< 50 % elevated) 10/29/20237679-LGR-cseunlp stable (2 elevated post prandial breakfast and 2 elevated post prandial dinner values) 11/04/20231003-YAN-tbtlxq 11/11/20236296-KWL-dzkvaqo stable (< 50% elevated) 11/18/20231712-QKS-qcmqlyouw via eb and messaging. Overall stable (rare [...] money to get more. Never true 08/16/2023 [place] Depression Scale Answer Date Recorded [place] Depression Scale Total 13 06/04/2023 The thought [...] Sign Reading Time Taken Comments Blood Pressure 122/92 11/21/2023 9:34 AM EDT Pulse - - Temperature - - Respiratory Rate - - Oxygen Saturation - - Inhaled Oxygen Concentration - - Weight 89.8 kg (198 lb) 11/21/2023 9:34 AM EDT Height - - Body Mass Index 32.95 11/18/2023 1:48 PM EDT documented in this encounter Progress Notes * Sobia Gould CRNP - 11/21/2023 9:50 AM EDT 34w3d Has had a change in vaginal discharge. Was a white/flores color. For the past 2 days more mucus like,had been pink-tinged. Denies contractions. Had intercourse yesterday. Taking labetalol as directed.MFM appt today. BPP 10/02. 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 Name of brim stretcher: Poornima Some mucus-like discharge noted. BV swab obtained. Cervix FT-1cm dilated. Advised to call with changes in discharge, contractions, pain. Return next week for twice weekly NSTs. NELDA Leal * Poornima Ward CMA - 11/21/2023 9:34 AM EDT 34w3d Mucus like discharge for 1 week. Denies any contractions. [place] tinge now, started of greyish white documented in this encounter Plan of Treatment Upcoming Encounters Date Type Department Care Team (Late st Contact Info) Description 11/25/2023 9:30 AM EDT Office Visit Gynecology/Obstetrics Jasmin Man [address] [place] [address] Sobia Gould CRNP [address] [place] [address] [place] Non Stress Tests Lizeth [address] [place] [address] 11/28/2023 1:45 PM EDT Office Visit Gynecology/Obstetrics Jasmin Man [address] [place] [address] Sobia Gould CRNP [address] [place] [address] Donovan Non Stress Tests Lizeth [address] [place] [address] 12/02/2023 9:30 AM EDT Office Visit Gynecology/Obstetrics [address] [place] [address] Sobia Gould CRNP [address] [place] [address] 12/05/2023 1:45 PM EDT Office Visit Gynecology/Obstetrics Jasmin Man [address] [place] [address] Sobia Gould CRNP [address] [place] [address] Adelia Man Stress Tests Lizeth [address] [place] [address] 12/09/2023 9:00 AM EDT Office Visit Gynecology/Obstetrics Floresmatthew Man [address] [place] [address] Flower Jordan PA-C [address] [place], [place] [address] [address] Adelia Man Stress Tests Lizeth [address] [place] [address] 12/12/2023 1:45 PM EDT Office Visit Gynecology/Obstetrics Jasmin Man [address] [place] [address] Sobia Gould CRNP [address] [place] [address] Adelia Man Stress Tests Lizeth [address] [place] [address] 12/16/2023 9:30 AM EDT Office Visit Gynecology/Obstetrics [address] [place] [address] Sobai Gould CRNP [address] [place] [address] 12/19/2023 1:45 PM EDT Office Visit Gynecology/Obstetrics Jasmin Man [address] [place] [address] Sobia Gould CRNP [address] [place] [address] Donovan Non Stress Tests Lizeth [address] [place] [address] 12/23/2023 2:30 PM EDT Office Visit Gynecology/Obstetrics MarkZoniajudy Man [address] [place] [address] Evaristo Harper MD [address] [place] [address] Adelia Man Stress Tests Lizeth [address] [place] [address] 12/26/2023 1:45 PM EDT Office Visit Gynecology/Obstetrics MarkZoniajudy Man [address] [place] [address] Sobia Gould CRNP [address] [place] [address] Donovan Non Stress Tests Lizeth [address] [place] [address] 12/30/2023 1:00 PM EST Office Visit Gynecology/Obstetrics Markmatthew Chengs [address] [address] Bonnie Almanzar CRNP [address] [place] [address] Donovan Non Stress Tests Lizeth [address] [place] [address] Pending Results Name Type Priority Associated Diagnoses Date /Time VAGINOSIS PANEL, PCR Lab Routine High-risk in third trimester 11/21/2023 9:56 AM EDT Scheduled Orders Name Type Priority Associated Diagnoses Orde r Schedule VAGINOSIS PANEL, PCR Lab Routine High-risk in third trimester Expected: 11/21/2023, Expires: 11/20/2024 Health Maintenance Due Date Last Done Comments Pneumococcal Vaccine: Pediatrics (0 to 5 Years) and At-Risk Patients (6 to 64 Years) (2 of 2 - PCV) 07/09/2017 07/09/2016 Depression Screening 05/31/2021 05/31/2020 COVID-19 Vaccine ( - season) 2023 Influenza Vaccine (FLU shot) [...] as of this encounter Visit Diagnoses Diagnosis High-risk in third trimester- Primary Obesity affecting , antepartum, unspecified obesity type Tobacco smoking affecting , antepartum Fibromyalgia Mylagia and myositis, unspecified Gestational diabetes mellitus (GDM) controlled on oral hypoglycemic drug, antepartum Gestational hypertension, third trimester documented in this encounter Care Teams Investigation Officer Relationship Specialty Start Date End Date Lainey Troy DO [address] [place] [address] [place] [address] PCP - General Internal Medicine 07/09/16 documented as of this encounter
--- OUTSIDE RECORDS SUMMARY | 2023-11-25 08:08 | External Medical Summary | Summary of Care ---
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 Active [employer] [email or web address] Flex System w/Device KitIndications: t controlled gestational diabetes mellitus (GDM) in second trimester Use to test blood sugars 4 times daily (fasting, 1 hour after breakfast, lunch, and dinner) 1 Kit 07/11/2023 Active Zipwhip In Vitro Strip (Glucose Blood)Indications: Diet controlled gestational diabetes mellitus (GDM) in second trimester Use to test blood sugars 4 times daily (fasting, 1 hour after breakfast, lunch, and dinner) 125 Strip 6 07/11/2023 Active Transera CommunicationsTouch Delica Lancets 30GIndications: t controlled gestational diabetes [...] Elevated FBS and PP's. Msg to [facility] to schedule ADAPT visit. Nutrition visit schedule 08/02/23. 07/25/23: ADAPT visit complete; elevated FBS and some PP values; patient deferred starting insulin but agreeable to Metformin; ordered Metformin 500mg PO daily with evening meal/snack; recommend fasting 8-10 hours overnight along with having a bedtime snack of 30g CHO paired with protein; recommend keeping food log; patient aware of upcoming Nutrition visit 07/29/20233351-TYT-luaqjcm stable. Multiple missed readings; encouraged to test and report as instructed. 08/05/20231906-WLB-uxxhkchx post prandial lunch and dinner values. Maternal medicine nurse practitioners to review. 08/05/23: RPM reviewed; PP elevations; increase to Metformin 500mg PO with breakfast and evening meal/snack 08/06/23: HgbA1c 5.5% 08/09/23: RPM message received - patient reporting GI symptoms; recommend F/U ADAPT to discuss possibility of switching to insulin; awaiting patient response back 08/12/20234916-UWA-tqfjlvdz elevated fasting blood sugars and post prandial values. Patient agreeable to follow up ADAPT appointment. [facility]s messaged to schedule. 08/14/23: ADAPT follow-up [...] can discuss switching to insulin if needed. 08/19/20230870-BFT-uhxzhgq stable (< 50% elevated) 08/26/2023-RPM-3 elevated fasting [...] lunch and the 1000 mg at bedtime. 09/30/20238697-JPX-aejdukwy 4 of the past 7 days; overall stable. Messaged to be consistent with testing/reporting four times daily 10/07/20234773-XAK-xmauepb stable (< 50% elevated) 10/14/20239533-UVW-exawinu stable. 3 of 7 elevated post prandial dinner values; advised to watch diet and will follow up next week 10/21/20235296-TAK-zyypusj stable (< 50 % elevated) 10/29/20231699-TTM-zblebun stable (2 elevated post prandial breakfast and 2 elevated post prandial dinner values) 11/04/20237920-AFB-frjmcq 11/11/20237412-ATZ-yblaqys stable (< 50% elevated) 11/18/20239264-BWF-gdgnqhmmp via eb and messaging. Overall stable (rare [...] money to get more. Never true 08/16/2023 Filer Depression Scale Answer Date Recorded Filer Depression Scale Total 13 06/04/2023 The thought [...] Progress Notes * Marbella Fowler, DO - 11/21/2023 11:16 AM EDT Sophie presented today at 34w3d for an ultrasound for the following indications: Obesity affecting in third trimester, unspecified obesity type Chronic hypertension affecting Assessment & Plan: Stable BP, now on [...] 118/92 11/07/23 140/88 10/24/23 126/82 Gestational diabetes mellitus (GDM) controlled on oral hypoglycemic drug, antepartum Assessment & Plan: Working with ADAPT. Ultrasound for screening for growth restriction 34 weeks gestation of Ultrasound summary: Patient presented at 34w 3d for growth assessment. Normal growth with EFW 2156 g at 17%ile. Normal RAMESH at 17.8 cm. Cephalic presentation. BPP 10/02. I reviewed the ultrasound images. Sophie was given the opportunity to meet with me if she had any questions. Please refer to the ultrasound report for additional details about today's ultrasound examination. RECOMMENDATIONS: Recommend follow up ultrasound with MFM in 4 weeks for growth secondary to above indications (if undelivered). See prior formal MFM consultation note. Thank you for allowing us to participate in the care of this patient. Please call with any questions. Marbella Fowler DO 11/21/2023 11:16 AM documented in this encounter Miscellaneous Notes * Assessment & Plan Note - Marbella Fowler DO - 11/21/2023 11:17 AM EDT Associated Problem(s): Gestational diabetes mellitus (GDM) controlled on oral hypoglycemic drug, antepartum Working with ADAPT. * Assessment & Plan Note - Marbella Fowler DO - 11/21/2023 11:11 AM EDT Associated Problem(s): Chronic hypertension affecting Stable BP, now on labetalol since 11/13. Staff has attempted to contact patient several times to schedule formal MFM consult to confirm GHTN diagnosis vs progression of CHTN and therefore delivery recommendations. Thus far unable to reach her to schedule an appt. BP Readings from Last 6 Encounters: 11/21/23 122/92 11/18/23 118/82 11/14/23 138/96 11/11/23 118/92 11/07/23 140/88 10/24/23 126/82 documented in this encounter Plan of Treatment Upcoming Encounters Date Type Department Care Team (Late st Contact Info) Description 11/25/2023 9:30 AM EDT Office Visit Gynecology/Obstetrics Jasmin Man [address] [place] [address] Sobia Gould CRNP [address] [place] [address] Donovan Non Stress Tests Lizeth [address] [place] [address] 11/28/2023 1:45 PM EDT Office Visit Gynecology/Obstetrics Jasmin Man [address] [place] [address] Sobia Gould CRNP [address] [place] [address] Donovan Non Stress Tests Lizeth [address] [place] [address] 12/02/2023 9:30 AM EDT Office Visit Gynecology/Obstetrics [address] [place] [address] Sobia Gould CRNP [address] [place] [address] 12/05/2023 1:45 PM EDT Office Visit Gynecology/Obstetrics Jasmin Man [address] [place] [address] Sobia Gould CRNP [address] [place] [address] Donovan Non Stress Tests Lizeth [address] [place] [address] 12/09/2023 9:00 AM EDT Office Visit Gynecology/Obstetrics Jasmin Man [address] [place] [address] Flower Jordan PA-C [address] [place] [address] [place] [address] Donovan, Non Stress Tests Lizeth [address] [place] [address] 12/12/2023 1:45 PM EDT Office Visit Gynecology/Obstetrics [facility] [address] [address] Sobia Gould CRNP [address] [place] [address] Donovan, Non Stress Tests Lizeth [address] [place] [address] 12/16/2023 9:30 AM EDT Office Visit Gynecology/Obstetrics [address] [place] [address] Sobia Gould CRNP [address] [place] [address] 12/19/2023 1:45 PM EDT Office Visit Gynecology/Obstetrics Mark'judy Chengs [address] [address] Sobia Gould CRNP [address] [place] [address] Donovan, Non Stress Tests Lizeth [address] [place] [address] 12/23/2023 2:30 PM EDT Office Visit Gynecology/Obstetrics [facility] [address] [place] [address] Evaristo Harper MD [address] [place] [address] Donovan, Non Stress Tests Lizeth [address] [place] [address] 12/26/2023 1:45 PM EDT Office Visit Gynecology/Obstetrics Jasmin Man [address] [place] [address] Sobia Gould CRNP [address] [place] [address] Donovan, Non Stress Tests Lizeth [address] [place] [address] 12/30/2023 1:00 PM EST Office Visit Gynecology/Obstetrics Jasmin Man [address] [place] [address] Bonnie Almanzar CRNP [address] [place] [address] Donovan Non Stress Tests Lizeth [address] [place] [address] Health Maintenance Due Date Last Done Comments [...] of this encounter Visit Diagnoses Diagnosis Obesity affecting in third trimester, unspecified obesity type- Primary Chronic hypertension affecting Gestational diabetes mellitus (GDM) controlled on oral hypoglycemic drug, antepartum Ultrasound for screening for growth restriction screening for growth retardation using ultrasonics 34 weeks gestation of state, incidental documented in this encounter Care Teams Clinical Specialty Rep Relationship Specialty Start Date End Date Lainey Troy DO [address] [place] [address] [place] [address] PCP - General Internal Medicine 07/09/16 documented as of this encounter
--- OUTSIDE RECORDS SUMMARY | 2023-11-25 08:08 | External Medical Summary | Summary of Care ---
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 Active [employer] VerAcquia Flex System w/Device KitIndications: t controlled gestational diabetes mellitus (GDM) in second trimester Use to test blood sugars 4 times daily (fasting, 1 hour after breakfast, lunch, and dinner) 1 Kit 07/11/2023 Active ShoeSize.Me In Vitro Strip (Glucose Blood)Indications: Diet controlled gestational diabetes mellitus (GDM) in second trimester Use to test blood sugars 4 times daily (fasting, 1 hour after breakfast, lunch, and dinner) 125 Strip 6 07/11/2023 Active SeeklyTouch Delica Lancets 30GIndications: t controlled gestational diabetes [...] reviewed; Elevated FBS and PP's. Msg to [facility] to schedule ADAPT visit. Nutrition visit schedule 08/02/23. 07/25/23: ADAPT visit complete; elevated FBS and some PP values; patient deferred starting insulin but agreeable to Metformin; ordered Metformin 500mg PO daily with evening meal/snack; recommend fasting 8-10 hours overnight along with having a bedtime snack of 30g CHO paired with protein; recommend keeping food log; patient aware of upcoming Nutrition visit 07/29/20232560-VXF-vfzvbie stable. Multiple missed readings; encouraged to test and report as instructed. 08/05/20234789-RIC-mvlrcgsn post prandial lunch and dinner values. Maternal medicine nurse practitioners to review. 08/05/23: RPM reviewed; PP elevations; increase to Metformin 500mg PO with breakfast and evening meal/snack 08/06/23: HgbA1c 5.5% 08/09/23: RPM message received - patient reporting GI symptoms; recommend F/U ADAPT to discuss possibility of switching to insulin; awaiting patient response back 08/12/20230916-QGA-dyaumwty elevated fasting blood sugars and post prandial values. Patient agreeable to follow up ADAPT appointment. [facility] PARs messaged to schedule. 08/14/23: ADAPT follow-up [...] can discuss switching to insulin if needed. 08/19/20230417-BKH-cmfozol stable (< 50% elevated) 08/26/2023-RPM-3 elevated fasting [...] lunch and the 1000 mg at bedtime. 09/30/20233233-LXQ-ycnxcioc 4 of the past 7 days; overall stable. Messaged to be consistent with testing/reporting four times daily 10/07/20231451-WLC-isnolyb stable (< 50% elevated) 10/14/20234347-ZMV-tgmzcxh stable. 3 of 7 elevated post prandial dinner values; advised to watch diet and will follow up next week 10/21/20237096-BAZ-imlzasj stable (< 50 % elevated) 10/29/20235755-WFU-swvrrid stable (2 elevated post prandial breakfast and 2 elevated post prandial dinner values) 11/04/20237955-UGD-nuwumr 11/11/20238120-FEE-slntmam stable (< 50% elevated) 11/18/20236633-XWV-jvobnjtcx via be and messaging. Overall stable (rare elevation) Last [...] money to get more. Never true 08/16/2023 Girard Depression Scale Answer Date Recorded Girard Depression Scale Total 13 06/04/2023 The thought [...] [address] [place], [place] [address] Sobia Gould CRNP [address] [place] [address] Donovan Non Stress Tests Lizeth [address] [place], [place] [address] 11/26/2023 7:30 AM EDT Telemedicine Shirt Hemmer Obstetric [facility] [address] [place] [id number] Delores Rodrigues CRNP [address] [place] [address] 11/28/2023 1:45 PM EDT Office Visit Gynecology/Obstetrics Jasmin Man [address] [place] [address] Sobia Gould CRNP [address] [place], [place] [address] Donovan Non Stress Tests Lizeth [address] [place] [address] 12/02/2023 9:30 AM EDT Office Visit Gynecology/Obstetrics [address] [place] [address] Sobia Gould CRNP [address] [place] [address] 12/05/2023 1:45 PM EDT Office Visit Gynecology/Obstetrics Jasmin Man [address] [place] [address] Sobia Gould CRNP [address] [place] [address] Donovan Non Stress Tests Lizeth [address] [address] 12/09/2023 9:00 AM EDT Office Visit Gynecology/Obstetrics Jasmin Man [address] [place] [address] Flower Jordan PA-C [address] [place] [address] [place] [address] Adelia Man Stress Tests Lizeth [address] [place] [address] 12/12/2023 1:45 PM EDT Office Visit Gynecology/Obstetrics Jasmin Man [address] [place] [address] Sobia Gould CRNP [address] [place] [address] Adelia Man Stress Tests Lizeth [address] [place] [address] 12/16/2023 9:30 AM EDT Office Visit Gynecology/Obstetrics [address] [place] [address] Sobia Gould CRNP [address] [place] [address] 12/18/2023 10:15 AM EDT Imaging Radiology, [place] [address] [place] [address] 12/19/2023 1:45 PM EDT Office Visit Gynecology/Obstetrics Jasmin Man [address] [place] [address] Sobia Gould CRNP [address] [place] [address] Man, Non Stress Tests Lizeth [address] [place] [address] 12/23/2023 2:30 PM EDT Office Visit Gynecology/Obstetrics Jasmin Man [address] [address] Evaristo Harper MD [address] [place] [address] Donovan Non Stress Tests Lizeth [address] [place] [address] 12/26/2023 1:45 PM EDT Office Visit Gynecology/Obstetrics Jasmin Man [address] [place] [address] Sobia Gould CRNP [address] [place] [address] Donovan Non Stress Tests Lizeth [address] [place] [address] 12/30/2023 1:00 PM EST Office Visit Gynecology/Obstetrics Jasmin Man [address] [address] Bonnie Almanzar CRNP [address] [place] [address] Donovan Non Stress Tests Lizeth [address] [place] [address] Health Maintenance Due Date Last Done Comments Pneumococcal Vaccine: Pediatrics (0 to 5 Years) and At-Risk Patients (6 to 64 Years) (2 of 2 - PCV) 07/09/2017 07/09/2016 Depression Screening 05/31/2021 05/31/2020 COVID-19 Vaccine (2023-25 season) 2023 Influenza Vaccine (FLU shot) (#1) [...] incidental documented in this encounter Care Teams Proofreader Relationship Specialty Start Date End Date Lainey Troy DO [address] [place] [address] [place] [address] PCP - General Internal Medicine 07/09/16 documented as of this encounter
--- OUTSIDE RECORDS SUMMARY | 2023-11-25 08:08 | External Medical Summary | Summary of Care ---
Author Name Unknown Organization [facility] Address [address] [place] [address] Phone [phone] Care Team Providers Care Hospice Nurse Practitioner Name Role Phone TroyLainey Primary Care Provider [phone] Reason for Visit * Reason Comments Return Visit Encounter Details Date Type Department Care Team (Late st Contact Info) Description 11/21/2023 9:45 AM EDT Office Visit Gynecology/Obstetric s [facility] [address] [place] [address] Sobia Gould CRNP [address] [address] Donovan, Non Stress Tests Lizeth [address] [place] [address] High-risk in third trimester*; Obesity affecting , [...] Capsule Therapy Pack Take by mouth. Active [employer] Flex System w/Device KitIndications: t controlled gestational diabetes mellitus (GDM) in second trimester Use to test blood sugars 4 times daily (fasting, 1 hour after breakfast, lunch, and dinner) 1 Kit 07/11/2023 Active [employer] In Vitro Strip (Glucose Blood)Indications: Diet controlled gestational diabetes mellitus (GDM) in second trimester Use to test blood sugars 4 times daily (fasting, 1 hour after breakfast, lunch, and dinner) 125 Strip 6 07/11/2023 Active [employer] Delica Lancets 30GIndications: t controlled gestational diabetes [...] reviewed; Elevated FBS and PP's. Msg to [facility] to schedule ADAPT visit. Nutrition visit schedule 08/02/23. 07/25/23: ADAPT visit complete; elevated FBS and some PP values; patient deferred starting insulin but agreeable to Metformin; ordered Metformin 500mg PO daily with evening meal/snack; recommend fasting 8-10 hours overnight along with having a bedtime snack of 30g CHO paired with protein; recommend keeping food log; patient aware of upcoming Nutrition visit 07/29/20231596-HHZ-gpvxwtt stable. Multiple missed readings; encouraged to test and report as instructed. 08/05/20233329-PZK-yiikwabz post prandial lunch and dinner values. Maternal medicine nurse practitioners to review. 08/05/23: RPM reviewed; PP elevations; increase to Metformin 500mg PO with breakfast and evening meal/snack 08/06/23: HgbA1c 5.5% 08/09/23: RPM message received - patient reporting GI symptoms; recommend F/U ADAPT to discuss possibility of switching to insulin; awaiting patient response back 08/12/20237677-IAW-hmxowaru elevated fasting blood sugars and post prandial values. Patient agreeable to follow up ADAPT appointment. [facility]s messaged to schedule. 08/14/23: ADAPT follow-up [...] can discuss switching to insulin if needed. 08/19/20239819-OMQ-auxmtkf stable (< 50% elevated) 08/26/2023-RPM-3 elevated fasting [...] lunch and the 1000 mg at bedtime. 09/30/20231882-HHW-txzcnitc 4 of the past 7 days; overall stable. Messaged to be consistent with testing/reporting four times daily 10/07/20235658-WTN-mijhqhd stable (< 50% elevated) 10/14/20238297-TRP-ygupwal stable. 3 of 7 elevated post prandial dinner values; advised to watch diet and will follow up next week 10/21/20233373-QWV-xzsbiec stable (< 50 % elevated) 10/29/20231371-LVE-ynyajvm stable (2 elevated post prandial breakfast and 2 elevated post prandial dinner values) 11/04/20238040-OQP-zbatci 11/11/20234113-JJB-ujlwjvz stable (< 50% elevated) 11/18/20236388-YDL-scexecqti via eb and messaging. Overall stable (rare [...] money to get more. Never true 08/16/2023 Dundee Depression Scale Answer Date Recorded Dundee Depression Scale Total 13 06/04/2023 The thought [...] labetalol as directed.MFM appt today. BPP 10/02. Frit Burner Documentation Provider requested e m assembler. Name of e m assembler: Poornima Some mucus-like discharge noted. BV swab obtained. Cervix FT-1cm dilated. Advised to call with changes in discharge, contractions, pain. Return next week for twice weekly NSTs. NELDA Leal * Poornima Ward CMA - 11/21/2023 9:34 AM EDT 34w3d Mucus like discharge for 1 week. Denies any contractions. [place] tinge now, started of greyish white documented in this encounter Plan of Treatment Upcoming Encounters Date Type Department Care Team (Late st Contact Info) Description 11/25/2023 9:30 AM EDT Office Visit Gynecology/Obstetrics Jasmin Man [address] [place] [address] Sobia Gould CRNP [address] [place] [address] Donovan Non Stress Tests Lizeth [address] [place] [address] 11/28/2023 1:45 PM EDT Office Visit Gynecology/Obstetrics Jasmin Man [address] [place] [address] Sobia Gould CRNP [address] [place] [address] Donovan Non Stress Tests Lizeth [address] [place] [address] 12/02/2023 9:30 AM EDT Office Visit Gynecology/Obstetrics [address] [place] [address] Sobia Gould CRNP [address] [place] [address] 12/05/2023 1:45 PM EDT Office Visit Gynecology/Obstetrics Jasmin Man [address] [place] [address] Sobia Gould CRNP [address] [place] [address] Adelia Man Stress Tests Lizeth [address] [place] [address] 12/09/2023 9:00 AM EDT Office Visit Gynecology/Obstetrics [facility] Man [address] [place] [address] Flower Jordan PA-C [address] [place], [place] [address] [address] Adelia Man Stress Tests Lizeth [address] [place] [address] 12/12/2023 1:45 PM EDT Office Visit Gynecology/Obstetrics Jasmin Man [address] [place] [address] Sobia Gould CRNP [address] [place] [address] Adelia Man Stress Tests Lizeth [address] [place] [address] 12/16/2023 9:30 AM EDT Office Visit Gynecology/Obstetrics [address] [place] [address] Sobia Gould CRNP [address] [place] [address] 12/19/2023 1:45 PM EDT Office Visit Gynecology/Obstetrics Jasmin Man [address] [address] Sobia Gould CRNP [address] [place] [address] Donovan Non Stress Tests Lizeth [address] [place] [address] 12/23/2023 2:30 PM EDT Office Visit Gynecology/Obstetrics MarkZoniajudy Man [address] [place] [address] Evaristo Harper MD [address] [place] [address] Adelia Man Stress Tests Lizeth [address] [place] [address] 12/26/2023 1:45 PM EDT Office Visit Gynecology/Obstetrics MarkZoniajudy Man [address] [place] [address] Sobia Gould CRNP [address] [place] [address] Donovan Non Stress Tests Lizeth [address] [place] [address] 12/30/2023 1:00 PM EST Office Visit Gynecology/Obstetrics Markmatthew Chengs [address] [address] Bonnie Almanzar CRNP [address] [place] [address] Donovan Non Stress Tests Lizeth [address] [place] [address] Pending Results Name Type Priority Associated Diagnoses [...] trimester documented in this encounter Care Teams Hospice Nurse Practitioner Relationship Specialty Start Date End Date Lainey Troy DO [address] [place] [address] [place] [address] PCP - General Internal Medicine 07/09/16 documented as of this encounter
--- OUTSIDE RECORDS SUMMARY | 2023-11-25 08:09 | External Medical Summary ---
Author Name Unknown Address Unknown Organization [facility] [address] [place] [id number] Laboratory Report Ordering Provider Test Date Status IGOR DIAZ 11/18/2023 14:28:06 Final Observation Date Value Abnormality Reference (Units ) Status WBC, Total 11/18/2023 14:28:06 14.67 Above high normal 4 .00-10.80 (K/uL) Final RBC 11/18/2023 14:28:06 4.21 3.85-5.15 (M/uL) Final Hemoglobin 11/18/2023 14:28:06 13.2 12.0-15.3 (g/dL) Final HCT 11/18/2023 14:28:06 39.6 36.0-45.2 (%) Final MCV 11/18/2023 14:28:06 94.1 81.5-97.5 (fL) Final MCH 11/18/2023 14:28:06 31.4 27.0-34.0 (pg) Final MCHC 11/18/2023 14:28:06 33.3 32.0-36.0 (g/dL) Final RDW 11/18/2023 14:28:06 15.0 11.5-15.5 (%) Final Platelets 11/18/2023 14:28:06 234 140-400 (K /uL) Final MPV 11/18/2023 14:28:06 12.1 6.6-11.1 ( fL) Final [facility] Location [facility] [address] [place] [address]
--- OUTSIDE RECORDS SUMMARY | 2023-11-25 08:09 | External Medical Summary ---
Author Name Unknown Address Unknown Organization [id number]:[facility] - [address] [place] [address] Laboratory Report Ordering Provider Test Date Status KELY GUZMAN 11/11/2023 11:15:36 Final Observation Date Value Abnormality Reference (Units ) Status WBC, Total 11/11/2023 11:15:36 14.05 Above high normal 4 .00-10.80 (K/uL) Final RBC 11/11/2023 11:15:36 4.49 3.85-5.15 (M/uL) Final Hemoglobin 11/11/2023 11:15:36 13.8 12.0-15.3 (g/dL) Final HCT 11/11/2023 11:15:36 40.9 36.0-45.2 (%) Final MCV 11/11/2023 11:15:36 91.1 81.5-97.5 (fL) Final MCH 11/11/2023 11:15:36 30.7 27.0-34.0 (pg) Final MCHC 11/11/2023 11:15:36 33.7 32.0-36.0 (g/dL) Final RDW 11/11/2023 11:15:36 14.6 11.5-15.5 (%) Final Platelets 11/11/2023 11:15:36 248 140-400 (K /uL) Final MPV 11/11/2023 11:15:36 12.0 6.6-11.1 ( fL) Final [facility]forming Location [facility] [address] [place] [address]
--- OUTSIDE RECORDS SUMMARY | 2023-11-25 08:09 | External Medical Summary | Summary of Care ---
Author Name Unknown Organization [facility] Address [address] [place] [address] Phone [phone] Care Team Providers Care Risk Management Internship Name Role Phone TroyLainey Primary Care Provider Reason for Visit * Reason Comments Return Visit Non Stress Test Encounter Details Date Type Department Care Team (Late st Contact Info) Description 11/14/2023 9:45 AM EDT Office Visit Gynecology/Obstetric s [facility] [address] [facility] [place] [address] Sobia Gould CRNP [address] [place] [address] Donovan Non Stress Tests Lizeth [address] [place] [address] High-risk in third trimester*; Obesity affecting , antepartum, unspecified obesity type; Tobacco smoking affecting in third trimester; Fibromyalgia; Gestational diabetes mellitus (GDM) controlled on oral hypoglycemic drug, antepartum; Gestational hypertension, third trimester; Supervision of high risk in second trimester; Gestational diabetes mellitus (GDM) in second trimester controlled on oral hypoglycemic drug Allergies No known active allergiesdocumented as of this encounter (statuses as of 11/14/2023) Medications Medication Sig Dispensed Refills Start Date [...] Capsule Therapy Pack Take by mouth. Active [facility] Verio Flex System w/Device KitIndications:Di et controlled gestational diabetes mellitus (GDM) in second trimester Use to test blood sugars 4 times daily (fasting, 1 hour after breakfast, lunch, and dinner) 1 Kit 07/11/2023 Active Medigus In Vitro Strip (Glucose Blood)Indications :Diet controlled gestational diabetes mellitus (GDM) in second trimester Use to test blood sugars 4 times daily (fasting, 1 hour after breakfast, lunch, and dinner) 125 Strip 6 07/11/2023 Active [facility] Delica Lancets 30GIndications:Di et controlled gestational diabetes [...] 30 Tablet 2 09/30/2023 Active Blood Pressure KitIndications:Ge stational hypertension, third trimester Check BP twice a day 1 Kit 11/11/2023 Active Labetalol HCl 100 MG Oral Tablet (Normodyne)Indica tions:Gestational hypertension, third trimester Take 1 Tablet by [...] hours apart. 90 Tablet 1 11/14/2023 Active metFORMIN HCl 500 MG Oral Tablet (Glucophage)Indic ations:Supervisio n of high risk in second trimester,Gestati onal diabetes mellitus (GDM) in second trimester controlled on oral hypoglycemic drug Take 1000 mg by mouth with breakfast and 1000 mg by mouth at bedtime; approximately 12 hours apart. 90 Tablet 1 08/26/2023 4 Discontinu ed(Refill) documented as of this encounter (statuses as of 11/14/2023) Active Problems Problem Noted Date Diagnosed Date [...] reviewed; Elevated FBS and PP's. Msg to [facility] to schedule ADAPT visit. Nutrition visit schedule 08/02/23. 07/25/23: ADAPT visit complete; elevated FBS and some PP values; patient deferred starting insulin but agreeable to Metformin; ordered Metformin 500mg PO daily with evening meal/snack; recommend fasting 8-10 hours overnight along with having a bedtime snack of 30g CHO paired with protein; recommend keeping food log; patient aware of upcoming Nutrition visit 07/29/20231857-SDE-erhkmnw stable. Multiple missed readings; encouraged to test and report as instructed. 08/05/20236149-JVK-ryxnomgm post prandial lunch and dinner values. Maternal medicine nurse practitioners to review. 08/05/23: RPM reviewed; PP elevations; increase to Metformin 500mg PO with breakfast and evening meal/snack 08/06/23: HgbA1c 5.5% 08/09/23: RPM message received - patient reporting GI symptoms; recommend F/U ADAPT to discuss possibility of switching to insulin; awaiting patient response back 08/12/20230741-BGO-axhmpkqq elevated fasting blood sugars and post prandial values. Patient agreeable to follow up ADAPT appointment. [facility] messaged to schedule. 08/14/23: ADAPT follow-up [...] can discuss switching to insulin if needed. 08/19/20235924-SEB-qrkgwxw stable (< 50% elevated) 08/26/2023-RPM-3 elevated fasting [...] lunch and the 1000 mg at bedtime. 09/30/20239556-LMI-drfiecyg 4 of the past 7 days; overall stable. Messaged to be consistent with testing/reporting four times daily 10/07/20238668-BBD-tkhabqw stable (< 50% elevated) 10/14/20239753-FAQ-hcvzgks stable. 3 of 7 elevated post prandial dinner values; advised to watch diet and will follow up next week 10/21/20231495-AVO-pgruouh stable (< 50 % elevated) 10/29/20238137-PLS-pncieyl stable (2 elevated post prandial breakfast and 2 elevated post prandial dinner values) 11/04/20238055-IRG-xminzk 11/11/20237165-PRA-qoppmtx stable (< 50% elevated) Last Assessment & [...] as of this encounter (statuses as of 11/14/2023) Resolved Problems Problem Noted Date Diagnosed Date Resolved Date Supervision of high-risk pre gnancy, second trimester 07/16/2023 11/11/2023 Class 1 obesity 07/16/2023 11/11/2023 Abnormal glucose tolerance i n mother complicating 07/02/2023 07/11/2023 Overview: Elevated early 1 hr GTT, 3 hr testing ordered at 14 weeks documented as of this encounter (statuses as of 11/14/2023) Immunizations Name Administration Dates Next Due DT [...] money to get more. Never true 08/16/2023 [place] Depression Scale Answer Date Recorded [place] Depression Scale Total 13 06/04/2023 The thought [...] No 08/16/2023 Does the household have a [facility] [place] source of income? (Household - for ages [...] Sign Reading Time Taken Comments Blood Pressure 138/96 11/14/2023 9:47 AM EDT rec heck 142/98 Pulse - - Temperature - - Respiratory Rate - - Oxygen Saturation - - Inhaled Oxygen Concentration - - Weight 88.9 kg (196 lb) 11/14/2023 9:47 AM EDT Height 165.1 cm (5' 5") 11/14/2023 9:47 AM EDT Body Mass Index 32.62 11/14/2023 9:47 AM EDT documented in this encounter Progress Notes * Sobia Gould CRNP - 11/14/2023 10:03 AM EDT 33w3d Not taking BP at home, doesn't have money for a BP cuff yet. BP in office is more elevated than earlier this week. Will initiate labetalol 100mg BID today. No proteinuria. Labs earlier this week WNL. She needs refill of metformin as well. ASSESSMENT assessment with Non-stress Test completed on 11/14/2023 at 33.3weeks gestation for indication of gestational diabetes mellitus and gestational hypertension heart baseline: 130 bpm Variability: Moderate Decelerations: absent Accelerations: present Contractions: None NST start time: 940 NST stop time: 1010 NST strip reviewed, interpreted, and approved by OB providerSobia CRNP . NST strip stored in clinic storage file documented in this encounter Nursing Notes * Liss Charlton LPN - 11/14/2023 10:02 AM EDT 33w3d documented in this encounter Plan of Treatment Upcoming Encounters Date Type Department Care Team (Late st Contact Info) Description 11/18/2023 1:45 PM EDT Office Visit Gynecology/Obstetrics [facility] [address] [place] [address] Sobia Gould CRNP [address] [place] [address] Adelia Man Stress Tests Lizeth [address] [place] [address] 11/21/2023 8:45 AM EDT Imaging Maternal Medicine Lizeth Fields [address] [place] [phone] 11/21/2023 9:45 AM EDT Office Visit Gynecology/Obstetrics Jas[facility] Man [address] [place], [place] [address] Sobia Gould CRNP [address] [place] [address] Adelia Man Stress Tests Lizeth [address] [place], [place] [address] 11/25/2023 9:30 AM EDT Office Visit Gynecology/Obstetrics [facility] Man [address] [place] [address] Sobia Gould CRNP [address] [place], [place] [address] Adelia Man Stress Tests Lizeth [address] [place] [address] 11/28/2023 1:45 PM EDT Office Visit Gynecology/Obstetrics [facility] Man [address] [place] [address] Sobia Gould CRNP [address] [place], [place] [address] Adelia Man Stress Tests Lizeth [address] [place] [address] 12/02/2023 9:30 AM EDT Office Visit Gynecology/Obstetrics [address] [place] [address] Sobia Gould CRNP [address] [place] [address] 12/05/2023 1:45 PM EDT Office Visit Gynecology/Obstetrics Jasmin Man [address] [place] [id number] Sobia Gould STOCK [employer]TER [address] [place] [address] Donovan Non Stress Tests Lizeth [address] [place] [address] 12/09/2023 9:00 AM EDT Office Visit Gynecology/Obstetrics Jasmin Chengs [address] [place] [address] [place] PA-C [address] [place], [place] [address] [address] Donovan Non Stress Tests Lizeth [address] [place] [address] 12/12/2023 1:45 PM EDT Office Visit Gynecology/Obstetrics Jasmin Man [address] [place] [address] Sobia Gould STOCK [employer]TER [address] [place] [address] Donovan Non Stress Tests Lizeth [address] [place] [address] 12/16/2023 9:30 AM EDT Office Visit Gynecology/Obstetrics [address] [place] [address] Sobia Gould STOCK LIFTER [address] [place] [address] 12/19/2023 1:45 PM EDT Office Visit Gynecology/Obstetrics Jasmin Man [address] [place] [address] Sobia Gould STOCK [employer]IFTER [address] [place] [address] Donovan Non Stress Tests Lizeth [address] [place] [address] 12/23/2023 2:30 PM EDT Office Visit Gynecology/Obstetrics Jasmin Man [address] [place] [address] Evaristo Harper MD [address] [place] [address] Donovan Non Stress Tests Lizeth [address] [place] [address] 12/26/2023 1:45 PM EDT Office Visit Gynecology/Obstetrics Jasmin Man [address] [place] [address] Sobia Gould CRNP [address] [place] [address] Donovan Non Stress Tests Lizeth [address] [place] [address] 12/30/2023 1:00 PM EST Office Visit Gynecology/Obstetrics Jasmin Man [address] [place] [place] [address] Bonnie Almanzar CRNP [address] [place] [address] Donovan Non Stress Tests Lizeth [address] [place] [address] Scheduled Orders Name Type Priority Associated Diagnoses Orde r Schedule URINALYSIS, POINT OF CARE (ENTER/EDIT) Point of Care Testing Routine High-risk in third trimester Ordered: 11/14/2023 Health Maintenance Due Date Last Done Comments Pneumococcal Vaccine: Pediatrics (0 to 5 Years) and At-Risk Patients (6 to 64 Years) (2 of 2 - PCV) 07/09/2017 07/09/2016 Depression Screening 05/31/2021 05/31/2020 COVID-19 Vaccine ( season) 2023 Influenza Vaccine (FLU shot) (#1) 2023 03/14/2018, 02/13/2011, 12/13/2008 GFR 11/10/2024 11/11/2023, 0809/2023, 09/02/2023, Additional history exists Pap Smear 06/03/2026 06/04/2023, [...] antepartum, unspecified obesity type Tobacco smoking affecting in third trimester Fibromyalgia Mylagia and myositis, unspecified Gestational diabetes mellitus (GDM) controlled on oral hypoglycemic drug, antepartum Gestational hypertension, third trimester Supervision of high risk in second trimester Unspecified high-risk Gestational diabetes mellitus (GDM) in second trimester controlled on oral hypoglycemic drug documented in this encounter Care Teams Risk Management Internship Relationship Specialty Start Date End Date Lainey Troy DO [address] [place] [address] [place] [address] PCP - General Internal Medicine 07/09/16 documented as of this encounter
--- OUTSIDE RECORDS SUMMARY | 2023-11-25 08:09 | External Medical Summary ---
Author Name Unknown Address Unknown Organization K01:[facility] [place] [address] [place] [address] Laboratory Report Ordering Provider Test Date Status VALERIE DIAZJESSY 11/18/2023 14:16:54 Final Normal: <150 mg/ g creatinine
High: 150-500 mg/g creatinine
Very High: >500 mg/g creatinine
Nephrotic: >3000 mg/g creatinine Observation Date Value Abnormality Reference (Units ) Status Protein/Creatinine [Ratio] in Urine 11/18/2023 14:16:54 65 <150 (mg/g ) Final Protein, Urine 11/18/2023 14:16:54 11 (mg/dL) Final Creatinine, Urine 11/18/2023 14:16:54 168 (mg/dL) Final Performing Location [facility] [place] [address] [place] [address]
--- OUTSIDE RECORDS SUMMARY | 2023-11-25 08:09 | External Medical Summary | Summary of Care ---
Author Name Unknown Organization [facility] Address [address] [place] [address] Phone [phone] Care Team Providers Care Tank Farm Gauger Name Role Phone Lainey Troy DO Primary Care Provider Encounter Details Date Type Department Care Team (Late st Contact Info) Description 11/11/2023 Telephone Gynecology/Obstetrics [facility] [address] [place] [address] Bonnie Almanzar CRNP [address] [place] [address] Allergies No known active allergiesdocumented as of [...] Capsule Therapy Pack Take by mouth. Active [employer] Flex System w/Device KitIndications:Di et controlled gestational diabetes mellitus (GDM) in second trimester Use to test blood sugars 4 times daily (fasting, 1 hour after breakfast, lunch, and dinner) 1 Kit 07/11/2023 Active [employer] In Vitro Strip (Glucose Blood)Indications :Diet controlled gestational diabetes mellitus (GDM) in second trimester Use to test blood sugars 4 times daily (fasting, 1 hour after breakfast, lunch, and dinner) 125 Strip 6 07/11/2023 Active [employer] Delica Lancets 30GIndications:Di et controlled gestational diabetes [...] twice a day 1 Kit 11/11/2023 Active metFORMIN HCl 500 MG Oral Tablet (Glucophage)Indic ations:Supervisio n of high risk in second trimester,Gestati onal diabetes mellitus (GDM) in second trimester controlled on oral hypoglycemic drug Take 1000 mg by mouth with breakfast and 1000 mg by mouth at bedtime; approximately 12 hours apart. 90 Tablet 1 08/26/2023 4 Discontinue d(Refill) documented as of this encounter [...] for RPM. Message sent to the [facility] to schedule FU ADAPT 07/23/23: RPM reviewed; Elevated FBS and PP's. Msg to [facility] to schedule ADAPT visit. Nutrition visit schedule 08/02/23. 07/25/23: ADAPT visit complete; elevated FBS and some PP values; patient deferred starting insulin but agreeable to Metformin; ordered Metformin 500mg PO daily with evening meal/snack; recommend fasting 8-10 hours overnight along with having a bedtime snack of 30g CHO paired with protein; recommend keeping food log; patient aware of upcoming Nutrition visit 07/29/20238368-ZPT-iggwgtt stable. Multiple missed readings; encouraged to test and report as instructed. 08/05/20232828-BWP-mvssmqoe post prandial lunch and dinner values. Maternal medicine nurse practitioners to review. 08/05/23: RPM reviewed; PP elevations; increase to Metformin 500mg PO with breakfast and evening meal/snack 08/06/23: HgbA1c 5.5% 08/09/23: RPM message received - patient reporting GI symptoms; recommend F/U ADAPT to discuss possibility of switching to insulin; awaiting patient response back 08/12/20237854-KVS-uknzlsah elevated fasting blood sugars and post prandial [...] can discuss switching to insulin if needed. 08/19/20233793-EBD-ngqkklp stable (< 50% elevated) 08/26/2023-RPM-3 elevated fasting [...] lunch and the 1000 mg at bedtime. 09/30/20236794-HFP-ggubuaae 4 of the past 7 days; overall stable. Messaged to be consistent with testing/reporting four times daily 10/07/20233025-EMB-dzuhwrp stable (< 50% elevated) 10/14/20230198-BWK-fxnsdbg stable. 3 of 7 elevated post prandial dinner values; advised to watch diet and will follow up next week 10/21/20236970-MJG-imhbdct stable (< 50 % elevated) 10/29/20233447-URU-wcyvwca stable (2 elevated post prandial breakfast and 2 elevated post prandial dinner values) 11/04/20230968-HGA-gajxwy 11/11/20233682-ONE-cqzgrkz stable (< 50% elevated) Last Assessment & [...] money to get more. Never true 08/16/2023 [place] Depression Scale Answer Date Recorded [place] Depression Scale Total 13 06/04/2023 The thought [...] encounter Miscellaneous Notes * Telephone Encounter - Bonnie Almanzar CRNP - 11/11/2023 10:55 AM EDT Hi Sophie Carter (33w0d) met criteria for gestational hypertension. I am getting pre- eclampsia labs and havingher do home BP checks. She is scheduled for a growth scan with MFM in 10 days. When would you advise delivery? Thanks! NELDA Goodman documented in this encounter Plan of Treatment Upcoming Encounters Date Type Department Care Team (Late st Contact Info) Description 11/18/2023 1:45 PM EDT Office Visit Gynecology/Obstetrics Jasmin Man [address] [place] [address] Sobia Gould CRNP [address] [place] [address] Adelia Man Stress Tests Lizeth [address] [place] [address] 11/21/2023 8:45 AM EDT Imaging Maternal Medicine Imaging, Lizeth [address] [place] [id number] 11/21/2023 9:45 AM EDT Office Visit Gynecology/Obstetrics [facility] [address] [place] [address] Sobia Gould CRNP [address] [place] [address] Donovan Non Stress Tests Lizeth [address] [place] [address] 11/25/2023 9:30 AM EDT Office Visit Gynecology/Obstetrics [facility] [address] [place] [address] Sobia Gould CRNP [address] [place] [address] Adelia Man Stress Tests Lizeth [address] [place] [address] 11/28/2023 1:45 PM EDT Office Visit Gynecology/Obstetrics [facility] [address] [place] [address] Sobia Gould CRNP [address] [place] [address] Adelia Man Stress Tests Lizeth [address] [place] [address] 12/02/2023 9:30 AM EDT Office Visit Gynecology/Obstetrics [address] [place] [address] Sobia Gould CRNP [address] [place] [address] 12/05/2023 1:45 PM EDT Office Visit Gynecology/Obstetrics [facility] [address] [place] [address] Sobia Gould CRNP [address] [place] [address] Donovan, Non Stress Tests Lizeth [address] [place] [address] 12/09/2023 9:00 AM EDT Office Visit Gynecology/Obstetrics [facility] [address] [place] [address] [place] PA-C [address] [place] [address] [place] [address] Donovan, Non Stress Tests Lizeth [address] [place] [address] 12/12/2023 1:45 PM EDT Office Visit Gynecology/Obstetrics Jasmin Chengs [address] [place] [address] Sobia Gould CRNP [address] [place], [place] [address] Donovan Non Stress Tests Lizeth [address] [place] [address] 12/16/2023 9:30 AM EDT Office Visit Gynecology/Obstetrics [address] [place] [address] Sobia Gould CRNP [address] [place] [address] 12/19/2023 1:45 PM EDT Office Visit Gynecology/Obstetrics [facility] [address] [place] [address] Sobia Gould CRNP [address] [place] [address] Donovan, Non Stress Tests Lizeth [address] [place] [address] 12/23/2023 2:30 PM EDT Office Visit Gynecology/Obstetrics Jasmin Man [address] [place] [address] Evaristo Harper MD [address] [place] [address] Donovan Non Stress Tests Lizeth [address] [place] [address] 12/26/2023 1:45 PM EDT Office Visit Gynecology/Obstetrics [facility] Man [address] [place] [address] Sobia Gould CRNP [address] [place] [address] Adelia Man Stress Tests Lizeth [address] [place] [address] 12/30/2023 1:00 PM EST Office Visit Gynecology/Obstetrics [facility] Man [address] [place] [address] Bonnie Almanzar CRNP [address] [place] [address] Adelia Man Stress Tests Lizeth [address] [place] [address] Health Maintenance Due Date Last Done Comments Pneumococcal Vaccine: Pediatrics (0 to 5 Years) and At-Risk Patients (6 to 64 Years) (2 of 2 - PCV) 07/09/2017 07/09/2016 Depression Screening 05/31/2021 05/31/2020 COVID-19 Vaccine (1 - 2023- season) 2023 Influenza Vaccine (FLU shot) (#1) 2023 03/14/2018, 02/13/2011, 12/13/2008 GFR 11/10/2024 11/11/2023, 08 09/2023, 09/02/2023, Additional history exists Pap Smear 06/03/2026 [...] filedocumented as of this encounter Care Teams Tank Farm Gauger Relationship Specialty Start Date End Date Lainey Troy DO [address] [place] [address] [place] [address] PCP - General Internal Medicine 07/09/16 documented as of this encounter
--- OUTSIDE RECORDS SUMMARY | 2023-11-25 08:09 | External Medical Summary | Summary of Care ---
Author Name Unknown Organization [facility] Address [address] [place] [address] Phone [phone] Care Team Providers Care Tin Plater Name Role Phone Lainey Troy Primary Care Provider [phone] Reason for Visit * Reason Comments Return Visit Non Stress Test Encounter Details Date Type Department Care Team (Late st Contact Info) Description 11/18/2023 1:45 PM EDT Office Visit Gynecology/Obstetric s [facility] [address] [facility] [place] [address] Sobia Gould CRNP [address] [facility] [place] [place] [address] Donovan Non Stress Tests Liz[facility] [address] [facility] [place] [address] High-risk in third trimester*; Obesity affecting , antepartum, unspecified obesity type; Tobacco smoking affecting in third trimester; Fibromyalgia; Gestational diabetes mellitus (GDM) controlled on oral hypoglycemic drug, antepartum; Gestational hypertension, third trimester Allergies No known active allergiesdocumented as of this encounter (statuses as of 11/18/2023) Medications Medication Sig Dispensed Refills Start Date [...] Capsule Therapy Pack Take by mouth. 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 Multiple missed readings; encouraged to test and report as instructed. 08/05/20238220-NIA-talujtow post prandial lunch and dinner values. Maternal medicine nurse practitioners to review. 08/05/23: RPM reviewed; PP elevations; increase to Metformin 500mg PO with breakfast and evening meal/snack 08/06/23: HgbA1c 5.5% 08/09/23: RPM message received - patient reporting GI symptoms; recommend F/U ADAPT to discuss possibility of switching to insulin; awaiting patient response back 08/12/20235837-IUF-fobiclcx elevated fasting blood sugars and post prandial values. Patient agreeable to follow up ADAPT appointment. [facility] messaged to schedule. 08/14/23: ADAPT follow-up [...] can discuss switching to insulin if needed. 08/19/20239153-VPD-nzbzjkl stable (< 50% elevated) 08/26/2023-RPM-3 elevated fasting [...] lunch and the 1000 mg at bedtime. 09/30/20232925-JXV-uvdbhgpc 4 of the past 7 days; overall stable. Messaged to be consistent with testing/reporting four times daily 10/07/20234183-OVG-allshve stable (< 50% elevated) 10/14/20235284-UJU-xvcexxb stable. 3 of 7 elevated post prandial dinner values; advised to watch diet and will follow up next week 10/21/20230802-SSH-bvhsdtz stable (< 50 % elevated) 10/29/20238279-AYK-ryuntyo stable (2 elevated post prandial breakfast and 2 elevated post prandial dinner values) 11/04/20237126-ZZD-warjmy 11/11/20235184-ENI-nijjnie stable (< 50% elevated) 11/18/20234233-PQX-heiemongc via eb and messaging. Overall stable (rare [...] as of this encounter (statuses as of 11/18/2023) Resolved Problems Problem Noted Date Diagnosed Date Resolved Date Supervision of high-risk pre gnancy, second trimester 07/16/2023 11/11/2023 Class 1 obesity 07/16/2023 11/11/2023 Abnormal glucose tolerance i n mother complicating 07/02/2023 07/11/2023 Overview: Elevated early 1 hr GTT, 3 hr testing ordered at 14 weeks documented as of this encounter (statuses as of 11/18/2023) Immunizations Name Administration Dates Next Due DT [...] money to get more. Never true 08/16/2023 [place] Depression Scale Answer Date Recorded [place] Depression Scale Total 13 06/04/2023 The thought [...] Sign Reading Time Taken Comments Blood Pressure 118/82 11/18/2023 1:48 PM EDT Pulse - - Temperature - - Respiratory Rate - - Oxygen Saturation - - Inhaled Oxygen Concentration - - Weight 89.4 kg (197 lb) 11/18/2023 1:48 PM EDT Height 165.1 cm (5' 5") 11/18/2023 1:48 PM EDT Body Mass Index 32.78 11/18/2023 1:48 PM EDT documented in this encounter Progress Notes * Sobia Gould CRNP - 11/18/2023 1:57 PM EDT 34w Started labetalol 11/14. BP good today. Labs today. ASSESSMENT assessment with Non-stress Test completed on 11/18/2023 at 34weeks gestation for indication ofgestational diabetes mellitus and gestational HTN heart baseline: 130 bpm Variability: Moderate Decelerations: absent Accelerations: present Contractions: None NST start time: 1344 NST stop time: 1414 NST strip reviewed, interpreted, and approved by OB provider, NELDA Leal . NST strip stored in clinic storage file documented in this encounter Nursing Notes * Liss Charlton LPN - 11/18/2023 2:14 PM EDT 34w0d NST documented in this encounter Plan of Treatment Upcoming Encounters Date Type Department Care Team (Late st Contact Info) Description 11/18/2023 2:40 PM EDT Laboratory Laboratory, [facility] [place] [address] [place] [address] [place] [address] [place] [address] Gestational hypertension, third trimester 11/21/2023 8:45 AM EDT Imaging Maternal Medicine Imaging, [facility] [address] [place] [address] 11/21/2023 9:45 AM EDT Office Visit Gynecology/Obstetric s [facility] [address] [place] [address] Sobia Gould CRNP [address] [place] [address] [facility] Non Stress Tests Lizeth [address] [place] [address] 11/25/2023 9:30 AM EDT Office Visit Gynecology/Obstetric s [facility] [address] [place] [address] Sobia Gould CRNP [address] [place] [address] Donovan, Non Stress Tests Lizeth [address] [place] [address] 11/28/2023 1:45 PM EDT Office Visit Gynecology/Obstetric s [facility] [address] [address] Sobia Gould CRNP [address] [place] [address] Donovan, Non Stress Tests Lizeth [address] [place] [address] 12/02/2023 9:30 AM EDT Office Visit Gynecology/Obstetric s [address] [place] [address] oSbia Gould CRNP [address] [place], [place] [address] 12/05/2023 1:45 PM EDT Office Visit Gynecology/Obstetric s [facility] [address] [place], [place] [address] Sobia Gould CRNP [address] [place] [address] [place] Non Stress Tests Lizeth [address] [place] [address] 12/09/2023 9:00 AM EDT Office Visit Gynecology/Obstetric s [facility] [address] [place], [place] [id number] [place] PA-C [address] [place] [address] [place] [address] Man, Non Stress Tests Lizeth [address] [place] [address] 12/12/2023 1:45 PM EDT Office Visit Gynecology/Obstetric s [facility] [address] [place] [address] Sobia Gould CRNP [address] [place] [address] Man, Non Stress Tests Lizeth [address] [place] [address] 12/16/2023 9:30 AM EDT Office Visit Gynecology/Obstetric s [address] [place] [address] Sobia Gould CRNP [address] [place] [address] 12/19/2023 1:45 PM EDT Office Visit Gynecology/Obstetric s [facility] [address] [place] [address] Sobia Gould CRNP [address] [place] [address] Man, Non Stress Tests Lizeth [address] [place] [address] 12/23/2023 2:30 PM EDT Office Visit Gynecology/Obstetric s [facility] [address] [place] [address] Evaristo Harper MD [address] [place] [address] Man, Non Stress Tests Lizeth [address] [place] [address] 12/26/2023 1:45 PM EDT Office Visit Gynecology/Obstetric s [facility] [address] [address] Sobia Gould CRNP [address] [place], [place] [address] Man, Non Stress Tests Lizeth [address] [place], [place] [address] 12/30/2023 1:00 PM EST Office Visit Gynecology/Obstetric s [facility] [address] [place] [address] Bonnie Almanzar CRNP [address] [place], [place] [address] [place] Non Stress Tests Liz[facility] [address] [place] [address] Pending Results Name Type Priority Associated Diagnoses Date /Time CBC Lab Routine Gestational hypertension, third trimester 11/18/2023 2:28 PM EDT COMPREHENSIVE METABOLIC PANEL Lab Routine Gestational hypertension, third trimester 11/18/2023 2:28 PM EDT PROTEIN/ CREATININE RATIO, URINE Lab Routine Gestational hypertension, third trimester 11/18/2023 2:16 PM EDT Scheduled Orders Name Type Priority Associated Diagnoses Orde r Schedule CBC Lab Routine Gestational hypertension, third trimester Expected: 11/18/2023 (Approximate), Expires: 11/17/2024 COMPREHENSIVE METABOLIC PANEL Lab Routine Gestational hypertension, third trimester Expected: 11/18/2023 (Approximate), Expires: 11/17/2024 PROTEIN/ CREATININE RATIO, URINE Lab Routine Gestational hypertension, third trimester Expected: 11/18/2023 (Approximate), Expires: 11/17/2024 Health Maintenance Due Date Last Done Comments [...] hypoglycemic drug, antepartum Gestational hypertension, third trimester Gestational hypertension, third trimester documented in this encounter Care Teams Tin Plater Relationship Specialty Start Date End Date Lainey Troy DO [address] [place] [address] [place] [address] PCP - General Internal Medicine 07/09/16 documented as of this encounter
--- OUTSIDE RECORDS SUMMARY | 2023-11-25 08:09 | External Medical Summary | Summary of Care ---
Author Name Unknown Organization [facility] Address [address] [place] [address] Phone [phone] Care Team Providers Care Roofing Foreman Name Role Phone Lainey Troy Primary Care Provider [phone] Reason for Visit * Reason Comments Return Visit Non Stress Test Encounter Details Date Type Department Care Team (Late st Contact Info) Description 11/11/2023 10:45 AM EDT Office Visit Gynecology/Obstetric s [facility] [address] [facility] [place] [address] Bonnie Almanzar CRNP [address] [place] [address] Donovan Non Stress Tests Lizeth [address] [place] [address] High-risk in third trimester*; Fibromyalgia; Obesity affecting in third trimester, unspecified obesity type; Tobacco smoking affecting in third trimester; Gestational diabetes mellitus (GDM) controlled on oral hypoglycemic drug, antepartum; Gestational hypertension, third trimester Allergies No known active allergiesdocumented as of this encounter (statuses as of 11/11/2023) Medications Medication Sig Dispensed Refills Start Date End Date Status Ascorbic Acid (VITAMIN C) 1000 MG TabletIndications:T brian during menstrual cycle Take 1 Tablet by [...] Capsule Therapy Pack Take by mouth. Active [employer] Verio Flex System w/Device KitIndications:Diet controlled gestational diabetes mellitus (GDM) in second trimester Use to test blood sugars 4 times daily (fasting, 1 hour after breakfast, lunch, and dinner) 1 Kit 07/11/2023 Active [employer] Verio In Vitro Strip (Glucose Blood)Indications:D iet controlled gestational diabetes mellitus (GDM) in second trimester Use to test blood sugars 4 times daily (fasting, 1 hour after breakfast, lunch, and dinner) 125 Strip 6 07/11/2023 Active [place] [employer] Delica Lancets 30GIndications:Diet controlled gestational diabetes mellitus [...] 30 Tablet 2 09/30/2023 Active Blood Pressure KitIndications:Gest ational hypertension, third trimester Check BP twice a day 1 Kit 11/11/2023 Active documented as of this encounter (statuses as of 11/11/2023) Active Problems Problem Noted Date Diagnosed Date [...] contact for RPM. Message sent to the [facility] to schedule FU ADAPT 07/23/23: RPM reviewed; Elevated FBS and PP's. Msg to [facility] to schedule ADAPT visit. Nutrition visit schedule 08/02/23. 07/25/23: ADAPT visit complete; elevated FBS and some PP values; patient deferred starting insulin but agreeable to Metformin; ordered Metformin 500mg PO daily with evening meal/snack; recommend fasting 8-10 hours overnight along with having a bedtime snack of 30g CHO paired with protein; recommend keeping food log; patient aware of upcoming Nutrition visit 07/29/20233757-EPN-dacswvr stable. Multiple missed readings; encouraged to test and report as instructed. 08/05/20230687-SAO-scxbguam post prandial lunch and dinner values. Maternal medicine nurse practitioners to review. 08/05/23: RPM reviewed; PP elevations; increase to Metformin 500mg PO with breakfast and evening meal/snack 08/06/23: HgbA1c 5.5% 08/09/23: RPM message received - patient reporting GI symptoms; recommend F/U ADAPT to discuss possibility of switching to insulin; awaiting patient response back 08/12/20238110-RVE-jexnjgof elevated fasting blood sugars and post prandial values. Patient agreeable to follow up ADAPT appointment. [facility] messaged to schedule. 08/14/23: ADAPT follow-up completed. [...] can discuss switching to insulin if needed. 08/19/20233706-JBK-wyhksxo stable (< 50% elevated) 08/26/2023-RPM-3 elevated fasting [...] lunch and the 1000 mg at bedtime. 09/30/20239822-AAO-wifekmkf 4 of the past 7 days; overall stable. Messaged to be consistent with testing/reporting four times daily 10/07/20234995-LUW-radipbx stable (< 50% elevated) 10/14/20232039-HSK-slzkhif stable. 3 of 7 elevated post prandial dinner values; advised to watch diet and will follow up next week 10/21/20232623-ZLV-orcpsjh stable (< 50 % elevated) 10/29/20231303-NQY-dpxllsu stable (2 elevated post prandial breakfast and 2 elevated post prandial dinner values) 11/04/20238354-HJT-zxmsdc 11/11/20238202-PAS-kleuyyj stable (< 50% elevated) Last Assessment & [...] as of this encounter (statuses as of 11/11/2023) Resolved Problems Problem Noted Date Diagnosed Date Resolved Date Supervision of high-risk pre gnancy, second trimester 07/16/2023 11/11/2023 Class 1 obesity 07/16/2023 11/11/2023 Abnormal glucose tolerance i n mother complicating 07/02/2023 07/11/2023 Overview: Elevated early 1 hr GTT, 3 hr testing ordered at 14 weeks documented as of this encounter (statuses as of 11/11/2023) Immunizations Name Administration Dates Next Due DT [...] money to get more. Never true 08/16/2023 [place] Depression Scale Answer Date Recorded [place] Depression Scale Total 13 06/04/2023 The thought [...] Sign Reading Time Taken Comments Blood Pressure 118/92 11/11/2023 10:35 AM EDT Pulse - - Temperature - - Respiratory Rate - - Oxygen Saturation - - Inhaled Oxygen Concentration - - Weight 89.8 kg (198 lb) 11/11/2023 10:35 AM EDT Height 165.1 cm (5' 5") 11/11/2023 10:35 AM EDT Body Mass Index 32.95 11/11/2023 10:35 AM EDT documented in this encounter Patient Instructions * Patient Instructions* Bonnie Almanzar CRNP - 11/11/2023 11:05 AM EDT - Check blood pressure twice a day, around the same time of day. Make sure you are sitting up straight with your feet flat on the ground. - Call [phone]: - New headache not relieved with Tylenol, rest, fluids - Vision changes - New swelling, especially in the hands/face - New belly pain - Vaginal bleeding or gushes of fluid - Baby is not moving normally, fewer than 10 movements in 2 hours - Blood pressure 160 or higher (top number), and/or 100 or higher (bottom number) documented in this encounter Progress Notes * Bonnie Almanzar CRNP - 11/11/2023 10:40 AM EDT ASSESSMENT assessment with Non-stress Test completed on 11/11/2023 at 33 weeks gestation for indication of gestational diabetes mellitus heart baseline: 140 bpm Variability: Moderate Decelerations: absent Accelerations: present Contractions: None NST start time: 1037 NST stop time: 1107 NST strip reviewed, interpreted, and approved by OB provider, NELDA Goodman . NST strip stored in clinic storage file Elevated BP, diagnostic of GHTN. Discussed with pt. Labs today. BP cuff ordered for pt and advised to check home BPs BID. Call office with systolic >/= 160, diastolic >/=100, or preE symptoms - reviewed these at length. Phone message sent to Dr Fowler in [facility] for additional recommendations. Pt is already scheduled for [facility] u/s next week. NELDA Goodman documented in this encounter Nursing Notes * Liss Charlton LPN - 11/11/2023 10:41 AM EDT [id number] NST documented in this encounter Miscellaneous Notes * Pt Handout (on AVS) - Bonnie Almanzar CRNP - 11/11/2023 11:07 AM EDT [id number] Gestational Hypertension What is gestational hypertension? Gestational hypertension is high blood pressure in . It occurs in about 3 in 50 pregnancies. This condition is different from chronic hypertension. Chronic hypertension happens when a person has high blood pressure before they get . It?s also different from preeclampsia and eclampsia. These are other blood pressure problems in . Gestational hypertension often starts in the second half of . It normally goes away after your baby is born. What causes gestational hypertension? Healthcare providers don't know what causes this condition. The following things may increase your risk: Having high blood pressure before or with a past Having kidney disease Having diabetes Being younger than 20 years of age or older than 40 years of age Being with multiples, such as twins or triplets Being What are the symptoms of gestational hypertension? Symptoms can occur a bit differently in each . The main symptom is high blood pressure in the second half of . High blood pressure in can lead to other serious issues. These can include preeclampsia. You should watch for signs of high blood pressure, but some people don't have any symptoms. They caninclude: Headache that doesn?t go away Edema (swelling) Sudden weight gain Vision changes, such as blurred or double vision Nausea or vomiting Pain in the upper right side of your belly, or pain around your stomach Making small amounts of urine How is gestational hypertension diagnosed? If your blood pressure increases, your healthcare provider may diagnose you with this condition. You may also have the following tests to check for this issue: Blood pressure readings Urine testing to check for protein, which is a sign that your kidneys aren?t working well Checking for swelling Checking your weight more often Liver and kidney function tests Blood clotting tests How is gestational hypertension treated? Blood pressure monitoring Your healthcare provider may check your blood pressure more often. You should also tell your healthcare provider if you have any new symptoms. monitoring Your healthcare provider may do tests to check the health of your baby. These tests may include: movement counting. You?ll keep track of your baby?s kicks and movements. A change in the number of kicks or how often your baby kicks may mean your baby is under stress. Nonstress testing. This test measures your baby?s heart rate in response to its movements. Biophysical profile. This test combines a nonstress test with an ultrasound to watch your baby. Doppler flow studies. This test is a type of ultrasound that uses sound waves to measure the flow of your baby?s blood through a blood vessel. Lab testing Your healthcare provider may test your urine and blood at every checkup. This testing willtell if your condition is getting worse. Medicine Your healthcare provider may give you corticosteroids. These medicines can help your baby?s lungs mature. You?ll get these medicines if it looks like your baby is going to be born early. What are possible complications of gestational hypertension? High blood pressure can affect your blood vessels. It may decrease blood flow in your liver, kidneys, brain, uterus, and placenta. This condition can get worse. It can lead to preeclampsia and eclampsia. These are serious blood pressure problems. These issues can cause the following problems: Placental abruption, when the placenta pulls away from the uterus too early Poor growth (intrauterine growth restriction) Stillbirth Seizures (eclampsia) of the mother and baby Because of these risks, your healthcare provider may decide that you need to have your baby early. This may happen before 37 weeks of . Even if your blood pressure goes back to normal after childbirth, you have a higher chance of having high blood pressure in the future. Can gestational hypertension be prevented? Having this issue diagnosed and treated early may help reduce your risk for complications. That's why it?s important to go to your checkups. Doing so may keep your condition from getting worse. When should I call my healthcare provider? Call your healthcare provider right away if you have signs of high blood pressure. Symptoms can include a headache that doesn?t go away, blurred or double vision, swelling, or making less urine than normal. Meléndez points about gestational hypertension Gestational hypertension is a form of high blood pressure in . It occurs in about 3 in 50 pregnancies. This condition can affect the health of both the parent and the baby, depending on how severe the issue is. Call your healthcare provider right away if you have signs of high blood pressure. Symptoms can include a headache that doesn?t go away, blurred or double vision, swelling, or making less urine than normal. The goal of treatment is to prevent the condition from getting worse and causing other problems. Next steps Tips to help you get the most from a visit to your healthcare provider: Know the reason for your visit and what you want to happen. Before your visit, write down questions you want answered. Bring someone with you to help you ask questions and remember what your provider tells you. At the visit, write down the name of a new diagnosis and any new medicines, treatments, or tests. Also write down any new instructions your provider gives you. Know why a new medicine or treatment is prescribed and how it will help you. Also know what the side effects are. Ask if your condition can be treated in other ways. Know why a test or procedure is recommended and what the results could mean. Know what to expect if you do not take the medicine or have the test or procedure. If you have a follow-up appointment, write down the date, time, and purpose for that visit. Know how you can contact your provider if you have questions. Last Reviewed Date: 04/25/202219994432-3078 [employer]. All rights reserved. This information is not intended as a substitute for professional medical care. Always follow your healthcare professional's instructions. documented in this encounter Plan of Treatment Upcoming Encounters Date Type Department Care Team (Late st Contact Info) Description 11/14/2023 9:45 AM EDT Office Visit Gynecology/Obstetrics [facility]matthew Donovan [address] [place] [address] Sobia Gould CRNP [address] [place] [address] Donovan, Non Stress Tests Lizeth [address] [place] [address] 11/18/2023 1:45 PM EDT Office Visit Gynecology/Obstetrics Markmatthew Man [address] [place] [address] Sobia Gould CRNP [address] [place] [address] Man, Non Stress Tests Lizeth [address] [place] [address] 11/21/2023 8:45 AM EDT Imaging Maternal Medicine Imaging, Lizeth Man [address] [place] [id number] 11/21/2023 9:45 AM EDT Office Visit Gynecology/Obstetrics MarkZoniajudy Man [address] [place] [address] Sobia Gould CRNP [address] [place] [address] Donovan Non Stress Tests Lizeth [address] [place] [address] 11/25/2023 9:30 AM EDT Office Visit Gynecology/Obstetrics Jasmin Chengs [address] [address] Sobia Gould CRNP [address] [place] [address] Donovan Non Stress Tests Lizeth [address] [place] [address] 11/28/2023 1:45 PM EDT Office Visit Gynecology/Obstetrics Jasmin Man [address] [address] Sobia Gould CRNP [address] [place] [address] Adelia Man Stress Tests Lizeth [address] [place] [address] 12/02/2023 9:30 AM EDT Office Visit Gynecology/Obstetrics [address] [place] [address] Sobia Gould CRNP [address] [place], [place] [address] 12/05/2023 1:45 PM EDT Office Visit Gynecology/Obstetrics Jasmin Man [address] [place] [address] Sobia Gould CRNP [address] [place] [address] Man, Non Stress Tests Lizeth [address] [place] [address] 12/09/2023 9:00 AM EDT Office Visit Gynecology/Obstetrics Jasmin Man [address] [place] [address] [place] PA-C [address] [place] [address] [place] [address] Donovan, Non Stress Tests Lizeth [address] [place] [address] 12/12/2023 1:45 PM EDT Office Visit Gynecology/Obstetrics Jasmin Man [address] [place] [address] Sobia Gould CRNP [address] [place] [address] Donovan Non Stress Tests Lizeth [address] [place] [address] 12/16/2023 9:30 AM EDT Office Visit Gynecology/Obstetrics [address] [place] [address] Sobia Gould CRNP [address] [place] [address] 12/19/2023 1:45 PM EDT Office Visit Gynecology/Obstetrics Jasmin Man [address] [place] [address] Sobia Gould [employer] [address] [place] [address] Donovan Non Stress Tests Lizeth [address] [place] [address] 12/23/2023 2:30 PM EDT Office Visit Gynecology/Obstetrics Jasmin Chengs [address] [place] [address] Evaristo Harper MD [address] [place] [address] Man, Non Stress Tests Lizeth [address] [place] [address] 12/26/2023 1:45 PM EDT Office Visit Gynecology/Obstetrics Jasmin Chengs [address] [place] [address] Sobia Gould CRNP [address] [place] [address] Man, Non Stress Tests Lizeth [address] [place] [address] 12/30/2023 1:00 PM EST Office Visit Gynecology/Obstetrics Jasmin Man [address] [place] [address] Bonnie Almanzar CRNP [address] [place] [address] Donovan, Non Stress Tests Lizeth [address] [place] [address] Pending Results Name Type Priority Associated Diagnoses Date /Time COMPREHENSIVE METABOLIC PANEL Lab Routine Gestational hypertension, third trimester 11/11/2023 11:15 AM EDT CBC Lab Routine Gestational hypertension, third trimester 11/11/2023 11:15 AM EDT PROTEIN/ CREATININE RATIO, URINE Lab Routine Gestational hypertension, third trimester 11/11/2023 11:10 AM EDT Scheduled Orders Name Type Priority Associated Diagnoses Orde r Schedule COMPREHENSIVE METABOLIC PANEL Lab Routine Gestational hypertension, third trimester Expected: 11/11/2023 (Approximate), Expires: 11/10/2024 CBC Lab Routine Gestational hypertension, third trimester Expected: 11/11/2023 (Approximate), Expires: 11/10/2024 PROTEIN/ CREATININE RATIO, URINE Lab Routine Gestational hypertension, third trimester Expected: 11/11/2023 (Approximate), Expires: 11/10/2024 Health Maintenance Due Date Last Done Comments [...] Diagnoses Diagnosis High-risk in third trimester- Primary Fibromyalgia Mylagia and myositis, unspecified Obesity affecting in third trimester, unspecified obesity type Tobacco smoking affecting in third trimester Gestational diabetes mellitus (GDM) controlled on oral hypoglycemic drug, antepartum Gestational hypertension, third trimester documented in this encounter Care Teams Roofing Foreman Relationship Specialty Start Date End Date Lainey Troy DO [address] [place] [address] [place] [address] PCP - General Internal Medicine 07/09/16 documented as of this encounter
--- OUTSIDE RECORDS SUMMARY | 2023-11-25 08:09 | External Medical Summary | Summary of Care ---
Author Name Unknown Organization [facility] Address [address] [place] [address] Phone [phone] Care Team Providers Care Maintenance Service Supervisor Name Role Phone TroyLainey Primary Care Provider Reason for Visit * Reason Comments Return Visit Non Stress Test Encounter Details Date Type Department Care Team (Late st Contact Info) Description 11/14/2023 9:45 AM EDT Office Visit Gynecology/Obstetric s [facility] [address] [facility] [place] [address] Sobia Gould CRNP [address] [facility] [place] [address] Donovan Non Stress Tests Lizeth [address] [place] [address] High-risk in third trimester*; Obesity affecting , [...] Capsule Therapy Pack Take by mouth. Active [employer] Verio Flex System w/Device KitIndications:Di et controlled gestational diabetes mellitus (GDM) in second trimester Use to test blood sugars 4 times daily (fasting, 1 hour after breakfast, lunch, and dinner) 1 Kit 07/11/2023 Active [facility] In Vitro Strip (Glucose Blood)Indications :Diet controlled gestational diabetes mellitus (GDM) in second trimester Use to test blood sugars 4 times daily (fasting, 1 hour after breakfast, lunch, and dinner) 125 Strip 6 07/11/2023 Active [employer] Delica Lancets 30GIndications:Di et controlled gestational diabetes [...] reviewed; Elevated FBS and PP's. Msg to [facility] to schedule ADAPT visit. Nutrition visit schedule 08/02/23. 07/25/23: ADAPT visit complete; elevated FBS and some PP values; patient deferred starting insulin but agreeable to Metformin; ordered Metformin 500mg PO daily with evening meal/snack; recommend fasting 8-10 hours overnight along with having a bedtime snack of 30g CHO paired with protein; recommend keeping food log; patient aware of upcoming Nutrition visit 07/29/20239194-TLW-vkztbnc stable. Multiple missed readings; encouraged to test and report as instructed. 08/05/20235718-QDT-cblanrzx post prandial lunch and dinner values. Maternal medicine nurse practitioners to review. 08/05/23: RPM reviewed; PP elevations; increase to Metformin 500mg PO with breakfast and evening meal/snack 08/06/23: HgbA1c 5.5% 08/09/23: RPM message received - patient reporting GI symptoms; recommend F/U ADAPT to discuss possibility of switching to insulin; awaiting patient response back 08/12/20234689-BZO-zssomwua elevated fasting blood sugars and post prandial values. Patient agreeable to follow up ADAPT appointment. [facility] PARs messaged to schedule. 08/14/23: [...] can discuss switching to insulin if needed. 08/19/20237672-FGV-thosczx stable (< 50% elevated) 08/26/2023-RPM-3 elevated fasting [...] lunch and the 1000 mg at bedtime. 09/30/20239044-XLP-lnkdzdul 4 of the past 7 days; overall stable. Messaged to be consistent with testing/reporting four times daily 10/07/20232948-SCD-kezktvv stable (< 50% elevated) 10/14/20236442-VCI-slcudgj stable. 3 of 7 elevated post prandial dinner values; advised to watch diet and will follow up next week 10/21/20233590-JPJ-xamjmvw stable (< 50 % elevated) 10/29/20230950-RKD-aszpofo stable (2 elevated post prandial breakfast and 2 elevated post prandial dinner values) 11/04/20231479-YAX-tcekya 11/11/20231698-NRQ-ysnpkzg stable (< 50% elevated) Last Assessment & [...] money to get more. Never true 08/16/2023 Van Depression Scale Answer Date Recorded Van Depression Scale Total 13 06/04/2023 The thought [...] No 08/16/2023 Does the household have a [facility] source of income? (Household - [...] Man [address] [place] [address] Sobia Gould CRNP [address] [place] [address] Adelia Man Stress Tests Lizeth [address] [place] [address] 11/21/2023 8:45 AM EDT Imaging Maternal Medicine Lizeth Fields [address] [place] [address] 11/21/2023 9:45 AM EDT Office Visit Gynecology/Obstetrics Jasmin Man [address] [place], [place] [address] Sobia Gould CRNP [address] [place] [address] Adelia Man Stress Tests Lizeth [address] [place], [place] [address] 11/25/2023 9:30 AM EDT Office Visit Gynecology/Obstetrics Jasmin Man [address] [place] [address] Sobia Gould CRNP [address] [place], [place] [address] Adelia Man Stress Tests Lizeth [address] [place] [address] 11/28/2023 1:45 PM EDT Office Visit Gynecology/Obstetrics Jasmin Man [address] [place] [address] Sobia Gould CRNP [address] [place], [place] [address] Adelia Man Stress Tests Lizeth [address] [place] [address] 12/02/2023 9:30 AM EDT Office Visit Gynecology/Obstetrics [address] [place] [address] Sobia Gould CRNP [address] [place] [address] 12/05/2023 1:45 PM EDT Office Visit Gynecology/Obstetrics Jasmin Man [address] [place] [id number] Sobia Gould [employer] DEVELOPER [address] [place] [address] Donovan Non Stress Tests Lizeth [address] [place] [address] 12/09/2023 9:00 AM EDT Office Visit Gynecology/Obstetrics Jasmin Chengs [address] [address] Flower Jordan PA-C [address] [place], [place] [address] [address] Donovan Non Stress Tests Lizeth [address] [place] [address] 12/12/2023 1:45 PM EDT Office Visit Gynecology/Obstetrics Jasmin Man [address] [address] Sobia Gould [employer] CRM DEVELOPER [address] [place] [address] Donovan Non Stress Tests Lizeth [address] [place] [address] 12/16/2023 9:30 AM EDT Office Visit Gynecology/Obstetrics [address] [place] [address] Sobia Gould [employer] CRM DEVELOPER [address] [place] [address] 12/19/2023 1:45 PM EDT Office Visit Gynecology/Obstetrics Jasmin Man [address] [place] [address] Sobia Gould [employer] CRM DEVELOPER [address] [place] [address] Donovan Non Stress Tests Lizeth [address] [place] [address] 12/23/2023 2:30 PM EDT Office Visit Gynecology/Obstetrics Jasmin Man [address] [place] [address] Evaristo Harper MD [address] [place] [address] Donovan Non Stress Tests Lizeth [address] [place] [address] 12/26/2023 1:45 PM EDT Office Visit Gynecology/Obstetrics Jasmin Man [address] [place] [address] Sobia Gould CRNP [address] [place] [address] Adelia Man Stress Tests Lizeth [address] [place] [address] 12/30/2023 1:00 PM EST Office Visit Gynecology/Obstetrics Jasmin Man [address] [place] [address] Bonnie Almanzar CRNP [address] [place] [address] Donovan Non Stress Tests Lizeth [address] [place] [address] Health Maintenance Due Date Last Done Comments Pneumococcal Vaccine: Pediatrics (0 to 5 Years) and At-Risk Patients (6 to 64 Years) (2 of 2 - PCV) 07/09/2017 07/09/2016 Depression Screening 05/31/2021 05/31/2020 COVID-19 Vaccine (2023- season) 2023 Influenza Vaccine (FLU shot) (#1) [...] Procedure Name Priority Date/Time Associated Diagnosis Comments URINALYSIS, POINT OF CARE (ENTER/EDIT) Routine 11/14/2023 High-risk in third trimester documented in this encounter Results * URINALYSIS, POINT OF CARE (ENTER/EDIT) (11/14/2023) Color, Urine Yellow Yellow or Light Yellow Clarity, Urine Clear Clear Glucose, Urine Negative Negative mg/dL Bilirubin, Urine Negative Negative Ketone, Urine Negative Negative mg/dL Specific [place], Urine 1.015 1.003 - 1.030 Blood, Urine Negative Negative pH, Urine 7.0 5.0 - 7.5 units Protein, Urine Negative Negative mg/dL Urobilinogen, Urine 0.2 0.2 - 1.0 mg/dL Nitrite, Urine Negative Negative Esterase, Urine Negative Negative Urine 11/14/2023 Sobia [facility] POINT OF CARE TE ST ENTER/EDIT ORDERABLES documented in this encounter Visit Diagnoses Diagnosis High-risk in [...] drug documented in this encounter Care Teams Maintenance Service Supervisor Relationship Specialty Start Date End Date Lainey Troy DO [address] [place] [address] [place] [address] PCP - General Internal Medicine 07/09/16 documented as of this encounter
--- OUTSIDE RECORDS SUMMARY | 2023-11-25 08:09 | External Medical Summary ---
Author Name Unknown Address Unknown Organization [id number]:[facility] [place] [address] - [address] [place] [address] Laboratory Report Ordering Provider Test Date Status KELY GUZMAN 11/11/2023 11:15:36 Final Observation Date Value Abnormality Reference (Units ) Status BUN 11/11/2023 11:15:36 10 6-20 (mg/dL) Final Creatinine 11/11/2023 11:15:36 0.7 0.5-1.0 (mg/dL) Final Glomerular filtration rate/1.73 sq M.predicted [Volume Rate/Area] in Serum, Plasma or Blood by Creatinine-based formula (CKD-EPI) 11/11/2023 11:15:36 >90 >=60 (mL/min) Final eGFR is calculated based on the CKD-EPI 2020 equation. Sodium 11/11/2023 11:15:36 139 135-146 (m mol/L) Final Potassium 11/11/2023 11:15:36 4.3 3.5-5.1 (m mol/L) Final Cl 11/11/2023 11:15:36 102 98-107 (mm ol/L) Final CO2 11/11/2023 11:15:36 24 22-32 (mmo l/L) Final Anion gap 11/11/2023 11:15:36 13 7-15 (mmol /L) Final Glucose 11/11/2023 11:15:36 70 70-120 (mg /dL) Final Albumin 11/11/2023 11:15:36 3.5 Below low normal 3.8 -5.0 (g/dL) Final AST (Aspartate aminotransferase) 11/11/2023 11:15:36 13 10-35 (U/L) Fin al Alk Phos 11/11/2023 11:15:36 133 Above high normal 35 -130 (U/L) Final Bilirubin, Total 11/11/2023 11:15:36 0.3 <=1 .2 (mg/dL) Final Calcium 11/11/2023 11:15:36 9.9 8.4-10.2 ( mg/dL) Final Protein 11/11/2023 11:15:36 6.0 6.0-8.3 (g /dL) Final ALT (Alanine aminotransferase) 11/11/2023 11:15:36 9 Below low normal 10-35 (U/L) Final Performing Location [facility] [place] [address] - [address] [facility] [address]
--- OUTSIDE RECORDS SUMMARY | 2023-11-25 08:09 | External Medical Summary ---
Author Name Unknown Address Unknown Organization [id number] [place] [address] - [address] [place] [address] Laboratory Report Ordering Provider Test Date Status IGOR DIAZ 11/18/2023 14:28:06 Final Observation Date Value Abnormality Reference (Units ) Status BUN 11/18/2023 14:28:06 11 6-20 (mg/dL) Final Creatinine 11/18/2023 14:28:06 0.9 0.5-1.0 (mg/dL) Final Glomerular filtration rate/1.73 sq M.predicted [Volume Rate/Area] in Serum, Plasma or Blood by Creatinine-based formula (CKD-EPI) 11/18/2023 14:28:06 >90 >=60 (mL/min) Final eGFR is calculated based on the CKD-EPI 2020 equation. Sodium 11/18/2023 14:28:06 138 135-146 (m mol/L) Final Potassium 11/18/2023 14:28:06 4.1 3.5-5.1 (m mol/L) Final Cl 11/18/2023 14:28:06 101 98-107 (mm ol/L) Final CO2 11/18/2023 14:28:06 20 Below low normal 22- 32 (mmol/L) Final Anion gap 11/18/2023 14:28:06 17 Above high normal 7- 15 (mmol/L) Final Glucose 11/18/2023 14:28:06 81 70-120 (mg /dL) Final Albumin 11/18/2023 14:28:06 3.4 Below low normal 3.8 -5.0 (g/dL) Final AST (Aspartate aminotransferase) 11/18/2023 14:28:06 14 10-35 (U/L) Fin al Alk Phos 11/18/2023 14:28:06 143 Above high normal 35 -130 (U/L) Final Bilirubin, Total 11/18/2023 14:28:06 0.2 <=1 .2 (mg/dL) Final Calcium 11/18/2023 14:28:06 9.3 8.4-10.2 ( mg/dL) Final Protein 11/18/2023 14:28:06 5.9 Below low normal 6.0 -8.3 (g/dL) Final ALT (Alanine aminotransferase) 11/18/2023 14:28:06 10 10-35 (U/L) Rogers benoit Performing Location [facility] [place] [address] - [address] [place] [address]
--- OUTSIDE RECORDS SUMMARY | 2023-11-25 08:09 | External Medical Summary ---
Author Name Unknown Address Unknown Organization [id number] [place] [address] [place] [address] Laboratory Report Ordering Provider Test Date Status KELY GUZMAN 11/11/2023 11:10:52 Final Normal: <150 mg/ g creatinine
High: 150-500 mg/g creatinine
Very High: >500 mg/g creatinine
Nephrotic: >3000 mg/g creatinine Observation Date Value Abnormality Reference (Units ) Status Protein/Creatinine [Ratio] in Urine 11/11/2023 11:10:52 110 <150 (mg/g ) Final Protein, Urine 11/11/2023 11:10:52 14 (mg/dL) Final Creatinine, Urine 11/11/2023 11:10:52 127 (mg/dL) Final Performing Location [facility] [place] [address] [place] [address]
--- OUTSIDE RECORDS SUMMARY | 2023-11-25 08:09 | External Medical Summary ---
Author Name Unknown Address Unknown Organization K01:[facility]ATORY [facility] [place] - [address] [facility] [address] Laboratory Report Ordering Provider Test Date Status IGOR DIAZ 11/21/2023 09:56:33 Final Observation Date Value Abnormality Reference (Units ) Status Bacterial vaginosis [Interpretation] in Vaginal fluid Qualitative 11/21/2023 09:56:33 Negative Negative Final Negative for Bacterial Vagin osis. Correlate results with other clinical findings. Andie sp DNA [Presence] in Vaginal fluid by Probe 11/21/2023 09:56:33 Negative Negative Final No Andie species group RNA detected. Correlate results with other clinical findings. Andie glabrata RNA [Presen ce] in Vaginal fluid by GREYSON with probe detection 11/21/2023 09:56:33 Negative Negative Final No Andie glabrata RNA dete cted. Correlate results with other clinical findings. Trichomonas vaginalis DNA [P resence] in Vaginal fluid by Probe 11/21/2023 09:56:33 Negative Negative Final No Trichomonas vaginalis RNA detected. Performing Location [facility] - [address] [facility] [address]
--- OUTSIDE RECORDS SUMMARY | 2023-11-25 08:09 | External Medical Summary | Summary of Care ---
Author Name Unknown Organization [facility] Address [address] [place] [address] Phone [phone] Care Team Providers Care Coater Smoking Pipe Name Role Phone Lainey Troy DO Primary Care Provider [phone] Reason for Referral * Evaluate & Treat - Unlimited Visits (Within 10 days (routine)) - Authorized Specialty Diagnoses / Procedures Referred By Jess chairez Referred To Contact Obstetrics/Gynecology / Maternal Medicine Diagnoses High-risk in third trimester Other obesity affecting in third trimester Gestational hypertension, third trimester Megan Almanzar CRNP [address] [place] [address] Referral ID Status Reason Start Date Expiration Date Visits Requested Visits Authorized [id number] Authorized Specialty Services Required 11/18/2023 999 999 Question Answer Referral Priority Within 10 days (routine) Has the patient had a viability scan? Yes Date performed 05/09/2023 Location performed Radiology Reason for referral Hypertension Hypertension type Gestational Where should this appointment be scheduled? [facility] Comments /Para: LMP: Patient's last menstrual period was 03/08/2023 (approximate). Patient is . SEBASTIÁN: 12/30/2023, by Ultrasound Pre-Gravid BMI: 34.11 Encounter Details Date Type Department Care Team (Late st Contact Info) Description 11/11/2023 Telephone Gynecology/Obstetrics Jasmin Man [address] [place] [address] Backer, NELDA Jenkins [address] [place] [address] Allergies No known active allergiesdocumented as of [...] Capsule Therapy Pack Take by mouth. Active [employer] Verio Flex System w/Device KitIndications:Di et controlled gestational diabetes mellitus (GDM) in second trimester Use to test blood sugars 4 times daily (fasting, 1 hour after breakfast, lunch, and dinner) 1 Kit 07/11/2023 Active [employer] In Vitro Strip (Glucose Blood)Indications :Diet controlled gestational diabetes mellitus (GDM) in second trimester Use to test blood sugars 4 times daily (fasting, 1 hour after breakfast, lunch, and dinner) 125 Strip 6 07/11/2023 Active [employer] Delica Lancets 30GIndications:Di et controlled gestational diabetes [...] log; patient aware of upcoming Nutrition visit 07/29/20238179-ISX-eeegepo stable. Multiple missed readings; encouraged to test and report as instructed. 08/05/20236290-ZPA-ibjopqza post prandial lunch and dinner values. Maternal medicine nurse practitioners to review. 08/05/23: RPM reviewed; PP elevations; increase to Metformin 500mg PO with breakfast and evening meal/snack 08/06/23: HgbA1c 5.5% 08/09/23: RPM message received - patient reporting GI symptoms; recommend F/U ADAPT to discuss possibility of switching to insulin; awaiting patient response back 08/12/20237890-REV-ogptlxcr elevated fasting blood sugars and post prandial values. Patient agreeable to follow up ADAPT appointment. [facility] PARs messaged to schedule. 08/14/23: ADAPT follow-up [...] can discuss switching to insulin if needed. 08/19/20234002-SWV-yjwemrc stable (< 50% elevated) 08/26/2023-RPM-3 elevated fasting [...] lunch and the 1000 mg at bedtime. 09/30/20236607-NLX-ewhnyxhb 4 of the past 7 days; overall stable. Messaged to be consistent with testing/reporting four times daily 10/07/20234508-XTM-ucipwty stable (< 50% elevated) 10/14/20236499-WQZ-vfjsype stable. 3 of 7 elevated post prandial dinner values; advised to watch diet and will follow up next week 10/21/20238784-UAT-qeezafc stable (< 50 % elevated) 10/29/20237913-OND-mzwfwpa stable (2 elevated post prandial breakfast and 2 elevated post prandial dinner values) 11/04/20232832-XUU-psjrvm 11/11/20234497-XVT-rvhojjx stable (< 50% elevated) Last Assessment & [...] money to get more. Never true 08/16/2023 [place] Depression Scale Answer Date Recorded [place] Depression Scale Total 13 06/04/2023 The thought [...] No 08/16/2023 Does the household have a [facility] source of income? (Household - for [...] as of this encounter Miscellaneous Notes * Addendum Note - Megan Almanzar CRNP - 11/18/2023 9:55 AM EDT Addended by: MEGAN ALMANZAR on: 11/18/2023 09:55 AM Modules accepted: Orders * Telephone Encounter - Megan Almanzar CRNP - 11/11/2023 10:55 AM EDT [...] Jasmin Man [address] [place] [address] Sobia Gould CRNP [address] [place] [address] Donovan, Non Stress Tests Lizeth [address] [place] [address] 11/21/2023 8:45 AM EDT Imaging Maternal Medicine Imaging, Lizeth Man [address] [place] [address] 11/21/2023 9:45 AM EDT Office Visit Gynecology/Obstetrics Floresmatthew Chengs [address] [place] [address] Sobia Gould CRNP [address] [place] [address] Man, Non Stress Tests Lizeth [address] [place] [address] 11/25/2023 9:30 AM EDT Office Visit Gynecology/Obstetrics Jasmin Man [address] [address] Sobia Gould CRNP [address] [place] [address] Donovan, Non Stress Tests Lizeth [address] [place] [address] 11/28/2023 1:45 PM EDT Office Visit Gynecology/Obstetrics Mark's Man [address] [place] [address] Sobia Gould CRNP [address] [place], [place] [address] Donovan, Non Stress Tests Lizeth [address] [place] [address] 12/02/2023 9:30 AM EDT Office Visit Gynecology/Obstetrics [address] [place] [address] Sobia Gould CRNP [address] [place] [address] 12/05/2023 1:45 PM EDT Office Visit Gynecology/Obstetrics Jasmin Man [address] [place] [address] Sobia Gould CRNP [address] [place], [place] [address] Donovan Non Stress Tests Lizeth [address] [place] [address] 12/09/2023 9:00 AM EDT Office Visit Gynecology/Obstetrics [facility] Donovan [address] [place] [address] Flower Jordan PA-C [address] [place] [address] [place] [address] Donovan, Non Stress Tests Lizeth [address] [place] [address] 12/12/2023 1:45 PM EDT Office Visit Gynecology/Obstetrics Flores's Man [address] [place] [address] Sobia Gould CRNP [address] [place] [address] Donovan Non Stress Tests Lizeth [address] [place] [address] 12/16/2023 9:30 AM EDT Office Visit Gynecology/Obstetrics [address] [place] [address] Sobia Gould CRNP [address] [place] [address] 12/19/2023 1:45 PM EDT Office Visit Gynecology/Obstetrics Mark's Man [address] [place] [address] Sobia Gould CRNP [address] [place] [address] Donovan Non Stress Tests Lizeth [address] [place] [address] 12/23/2023 2:30 PM EDT Office Visit Gynecology/Obstetrics Mark's Man [address] [place] [address] Evaristo Harper MD [address] [place] [address] Donovan, Non Stress Tests Lizeth [address] [place] [address] 12/26/2023 1:45 PM EDT Office Visit Gynecology/Obstetrics Flores's Man [address] [place] [address] Sobia Gould CRNP [address] [address] Donovan, Non Stress Tests Lizeth [address] [place] [address] 12/30/2023 1:00 PM EST Office Visit Gynecology/Obstetrics Jasmin Man [address] [place] [address] Backer, NELDA Jenkins [address] [place] [address] Donovan, Non Stress Tests Lizeth [address] [place] [address] Scheduled Orders Name Type Priority Associated Diagnoses Orde r Schedule MFM US MATERNAL 1ST FETUS Medical Imaging Routine High-risk in third trimester Other obesity affecting in third trimester Gestational hypertension, third trimester Other specified related conditions, third trimester Expected: 11/18/2023, Expires: 12/17/2024 Scheduled Referrals Name Type Priority Associated Diagnoses Orde r Schedule MATERNAL MEDICINE REFERRAL OP Referral Within 10 days (routine) High-risk in third trimester Other obesity affecting in third trimester Gestational hypertension, third trimester Ordered: 11/18/2023 Health Maintenance Due Date Last Done Comments Pneumococcal Vaccine: Pediatrics (0 to 5 Years) and At-Risk Patients (6 to 64 Years) (2 of 2 - PCV) 07/09/2017 07/09/2016 Depression Screening 05/31/2021 05/31/2020 COVID-19 Vaccine ( season) 2023 Influenza Vaccine (FLU shot) (#1) 2023 03/14/2018, 02/13/2011, 12/13/2008 GFR 11/10/2024 11/11/2023, 08/0 09/2023, 09/02/2023, Additional history exists Pap Smear [...] Diagnoses Diagnosis High-risk in third trimester- Primary Other obesity affecting in third trimester Gestational hypertension, third trimester Other specified related conditions, third trimester documented in this encounter Care Teams Coater Smoking Pipe Relationship Specialty Start Date End Date Lainey Troy DO [address] [place] [address] [place] [address] PCP - General Internal Medicine 07/09/16 documented as of this encounter
--- OUTSIDE RECORDS SUMMARY | 2023-11-25 08:09 | External Medical Summary | Summary of Care ---
Author Name Unknown Organization [facility] Address [address] [place] [address] Phone [phone] Care Team Providers Care Sustainable Agriculture Faculty Name Role Phone Lainey Troy DO Primary Care Provider Reason for Visit * Reason Onset Date Comments Referral 11/18/2023 Encounter Details Date Type Department Care Team (Late st Contact Info) Description 11/18/2023 Telephone French Edge Operator Obstetrics Maternal Medicine, [place] [address] [place] [address] BordenNurse French Edge Operator [facility] [address] [place] [address] Referral Allergies No known active allergiesdocumented as of this encounter (statuses as of 11/19/2023) Medications Medication Sig Dispensed Refills Start Date [...] Capsule Therapy Pack Take by mouth. Active Xochitl (So-Shee) Gold minesTouch Verio Flex System w/Device KitIndications: t controlled gestational diabetes mellitus (GDM) in second trimester Use to test blood sugars 4 times daily (fasting, 1 hour after breakfast, lunch, and dinner) 1 Kit 07/11/2023 Active Xochitl (So-Shee) Gold [email or web address] In Vitro Strip (Glucose Blood)Indications: Diet controlled gestational diabetes mellitus (GDM) in second trimester Use to test blood sugars 4 times daily (fasting, 1 hour after breakfast, lunch, and dinner) 125 Strip 6 07/11/2023 Active Xochitl (So-Shee) Gold minesTouch Delica Lancets 30GIndications: t controlled gestational diabetes [...] as of this encounter (statuses as of 11/19/2023) Active Problems Problem Noted Date Diagnosed Date [...] log; patient aware of upcoming Nutrition visit 07/29/20239206-QOZ-buvghrz stable. Multiple missed readings; encouraged to test and report as instructed. 08/05/20238007-EIT-jgdllyzx post prandial lunch and dinner values. Maternal medicine nurse practitioners to review. 08/05/23: RPM reviewed; PP elevations; increase to Metformin 500mg PO with breakfast and evening meal/snack 08/06/23: HgbA1c 5.5% 08/09/23: RPM message received - patient reporting GI symptoms; recommend F/U ADAPT to discuss possibility of switching to insulin; awaiting patient response back 08/12/20236165-HYB-igrsbzvy elevated fasting blood sugars and post prandial values. Patient agreeable to follow up ADAPT appointment. [facility] [facility] [place] to schedule. 08/14/23: [...] can discuss switching to insulin if needed. 08/19/20231449-RKR-dsljppu stable (< 50% elevated) 08/26/2023-RPM-3 elevated fasting [...] lunch and the 1000 mg at bedtime. 09/30/20236348-VAO-uvbgbcjn 4 of the past 7 days; overall stable. Messaged to be consistent with testing/reporting four times daily 10/07/20235545-MYK-qdeliuj stable (< 50% elevated) 10/14/20232409-IVG-ggbrbua stable. 3 of 7 elevated post prandial dinner values; advised to watch diet and will follow up next week 10/21/20232102-TDX-btkveqi stable (< 50 % elevated) 10/29/20236497-IKI-zkcnboh stable (2 elevated post prandial breakfast and 2 elevated post prandial dinner values) 11/04/20232459-IEP-fkbgcm 11/11/20230694-IOF-dglsmwu stable (< 50% elevated) 11/18/20237252-EPL-vvtvmawna via eb and messaging. Overall stable (rare [...] as of this encounter (statuses as of 11/19/2023) Resolved Problems Problem Noted Date Diagnosed Date Resolved Date Supervision of high-risk pre gnancy, second trimester 07/16/2023 11/11/2023 Class 1 obesity 07/16/2023 11/11/2023 Abnormal glucose tolerance i n mother complicating 07/02/2023 07/11/2023 Overview: Elevated early 1 hr GTT, 3 hr testing ordered at 14 weeks documented as of this encounter (statuses as of 11/19/2023) Immunizations Name Administration Dates Next Due DT [...] money to get more. Never true 08/16/2023 [place] Depression Scale Answer Date Recorded [place] Depression Scale Total 13 06/04/2023 The thought [...] Phone call to patient. Left message on [employer]'s voice mail. Encouraged patient to return call to [facility] assist with scheduling. * Telephone Encounter - Maryan Lyn CCMA - 11/18/2023 1:40 PM EDT Estimated Date of Delivery: 12/30/23 Please schedule for 45 MINUTE CONSULT SIMPLE MEDICAL WITH DESIGN DRAFTSMAN, in time frame of within 1 week at location [facility] with the indication of GHTN. Follow-up ultrasound scheduled 11/20. Referring Provider: Bonnie Almanzar CRNP documented in this encounter Plan of Treatment Upcoming Encounters Date Type Department Care Team (Late st Contact Info) Description 11/21/2023 8:45 AM EDT Imaging Maternal Medicine [facility], [address] [place] [address] 11/21/2023 9:45 AM EDT Office Visit Gynecology/Obstetrics Jasmin Man [address] [place], [place] [address] Sobia Gould CRNP [address] [place] [address] [place] Non Stress Tests Lizeth [address] [place] [address] 11/25/2023 9:30 AM EDT Office Visit Gynecology/Obstetrics Jasmin Man [address] [place] [address] Sobia Gould CRNP [address] [place] [address] Adelia Man Stress Tests iLzeth [address] [place] [address] 11/28/2023 1:45 PM EDT Office Visit Gynecology/Obstetrics Jasmin Man [address] [place] [address] Sobia Gould CRNP [address] [place] [address] Adelia Man Stress Tests Lizeth [address] [place] [address] 12/02/2023 9:30 AM EDT Office Visit Gynecology/Obstetrics [address] [place] [address] Sobia Gould CRNP [address] [place] [address] 12/05/2023 1:45 PM EDT Office Visit Gynecology/Obstetrics Jasmin Man [address] [place] [address] Sobia Gould CRNP [address] [place] [address] Donovan Non Stress Tests Lizeth [address] [place] [address] 12/09/2023 9:00 AM EDT Office Visit Gynecology/Obstetrics Jasmin Man [address] [place], [place] [address] Flower Jordan PA-C [address] [place] [address] [place] [address] Adelia Man Stress Tests Lizeth [address] [place] [address] 12/12/2023 1:45 PM EDT Office Visit Gynecology/Obstetrics Jasmin Man [address] [place] [address] Sobia Gould CRNP [address] [place] [address] Adelia Man Stress Tests Lizeth [address] [place] [address] 12/16/2023 9:30 AM EDT Office Visit Gynecology/Obstetrics [address] [place] [address] Sobia Gould CRNP [address] [place] [address] 12/19/2023 1:45 PM EDT Office Visit Gynecology/Obstetrics Jasmin Man [address] [place], [place] [address] Sobia Gould CRNP [address] [place] [address] Man, Non Stress Tests Lizeth [address] [place] [address] 12/23/2023 2:30 PM EDT Office Visit Gynecology/Obstetrics Jasmin Man [address] [place] [address] Evaristo Harper MD [address] [place] [address] Adelia Man Stress Tests Lizeth [address] [address] 12/26/2023 1:45 PM EDT Office Visit Gynecology/Obstetrics Jasmin Man [address] [place] [address] Sobia Gould CRNP [address] [place] [address] Adelia Man Stress Tests Lizeth [address] [place] [address] 12/30/2023 1:00 PM EST Office Visit Gynecology/Obstetrics Jasmin Man [address] [place] [address] Bonnie Almanzar CRNP [address] [place] [address] Adelia Man Stress Tests Lizeth [address] [place] [address] Health Maintenance Due Date Last Done Comments [...] filedocumented as of this encounter Care Teams Sustainable Agriculture Faculty Relationship Specialty Start Date End Date Lainey Troy DO [address] [place] [address] [place] [phone] PCP - General Internal Medicine 07/09/16 documented as of this encounter
--- OUTSIDE RECORDS SUMMARY | 2023-11-25 08:10 | External Medical Summary | Summary of Care ---
Author Name Unknown Organization [facility] Address [address] [place] [address] Phone [phone] Care Team Providers Care Bench Assembly Inspector Name Role Phone TroyLainey Primary Care Provider Reason for Visit * Reason Comments Return Visit Non Stress Test Encounter Details Date Type Department Care Team (Late st Contact Info) Description 11/07/2023 11:00 AM EDT Office Visit Gynecology/Obstetric s Mark'judy Man [address] [facility] [place] [address] Sobia Gould CRNP [address] [facility] [place] [address] Donovan Non Stress Tests Lizeth [address] [facility] [place] [address] High-risk , third trimester*; Fibromyalgia; Supervision of normal first , antepartum; Obesity during in second trimester; Tobacco smoking affecting in second trimester; Gestational diabetes mellitus (GDM) controlled on oral hypoglycemic drug, antepartum; Blood pressure elevated without history of HTN; Class 1 obesity Allergies No known active allergiesdocumented as of this encounter (statuses as of 11/07/2023) Medications Medication Sig Dispensed Refills Start Date [...] Capsule Therapy Pack Take by mouth. Active [employer] Flex System w/Device KitIndications:Diet controlled gestational diabetes mellitus (GDM) in second trimester Use to test blood sugars 4 times daily (fasting, 1 hour after breakfast, lunch, and dinner) 1 Kit 07/11/2023 Active [employer] In Vitro Strip (Glucose Blood)Indications:D iet controlled gestational diabetes mellitus (GDM) in second trimester Use to test blood sugars 4 times daily (fasting, 1 hour after breakfast, lunch, and dinner) 125 Strip 6 07/11/2023 Active Solapa4 Delica Lancets 30GIndications:Diet controlled gestational diabetes mellitus [...] as of this encounter (statuses as of 11/07/2023) Active Problems Problem Noted Date Diagnosed Date [...] reviewed; Elevated FBS and PP's. Msg to [facility] to schedule ADAPT visit. Nutrition visit schedule 08/02/23. 07/25/23: ADAPT visit complete; elevated FBS and some PP values; patient deferred starting insulin but agreeable to Metformin; ordered Metformin 500mg PO daily with evening meal/snack; recommend fasting 8-10 hours overnight along with having a bedtime snack of 30g CHO paired with protein; recommend keeping food log; patient aware of upcoming Nutrition visit 07/29/20239805-RIS-bwxkfzx stable. Multiple missed readings; encouraged to test and report as instructed. 08/05/20238291-GWH-uancdfyu post prandial lunch and dinner values. Maternal medicine nurse practitioners to review. 08/05/23: RPM reviewed; PP elevations; increase to Metformin 500mg PO with breakfast and evening meal/snack 08/06/23: HgbA1c 5.5% 08/09/23: RPM message received - patient reporting GI symptoms; recommend F/U ADAPT to discuss possibility of switching to insulin; awaiting patient response back 08/12/20235023-UYC-rsrblrcp elevated fasting blood sugars and post prandial values. Patient agreeable to follow up ADAPT appointment. [facility] messaged to schedule. 08/14/23: ADAPT [...] can discuss switching to insulin if needed. 08/19/20230375-SKW-vaqojxa stable (< 50% elevated) 08/26/2023-RPM-3 elevated fasting [...] lunch and the 1000 mg at bedtime. 09/30/20239840-ZBA-ixtptxyg 4 of the past 7 days; overall stable. Messaged to be consistent with testing/reporting four times daily 10/07/20238336-LOE-fvlzqkl stable (< 50% elevated) 10/14/20231469-UIF-wcygdot stable. 3 of 7 elevated post prandial dinner values; advised to watch diet and will follow up next week 10/21/20235652-UJH-hyxycxp stable (< 50 % elevated) 10/29/20230906-IRI-epzewph stable (2 elevated post prandial breakfast and 2 elevated post prandial dinner values) 11/04/20239133-CAV-mefnrt Last Assessment & Plan: Working with ADAPT. [facility] 06/04/2023 Obesity during in second trimester 10/2023 [...] as of this encounter (statuses as of 11/07/2023) Resolved Problems Problem Noted Date Diagnosed Date Resolved Date Abnormal glucose tolerance i n mother complicating 07/02/2023 07/11/2023 Overview: Elevated early 1 hr GTT, 3 hr testing ordered at 14 weeks documented as of this encounter (statuses as of 11/07/2023) Immunizations Name Administration Dates Next Due DT [...] money to get more. Never true 08/16/2023 Edison Depression Scale Answer Date Recorded Edison Depression Scale Total 13 06/04/2023 The thought [...] Sign Reading Time Taken Comments Blood Pressure 140/88 11/07/2023 10:59 AM EDT Pulse - - Temperature - - Respiratory Rate - - Oxygen Saturation - - Inhaled Oxygen Concentration - - Weight 90.7 kg (200 lb) 11/07/2023 10:59 AM EDT Height - - Body Mass Index 33.28 11/04/2023 1:02 PM EDT documented in this encounter Progress Notes * Sobia Gould CRNP - 11/07/2023 11:40 AM EDT ASSESSMENT assessment with Non-stress Test completed on 11/07/2023 at 32.3weeks gestation for indication of diabetes mellitus heart baseline: 130 bpm Variability: Moderate Decelerations: absent Accelerations: present Contractions: None NST start time: 1052 NST stop time: 1120 NST strip reviewed, interpreted, and approved by OB provider, NELDA Leal . NST strip stored in clinic storage file * Poornima Ward CMA - 11/07/2023 10:59 AM EDT 32w3d ER visit for bleeding 11/05/2023. Records in chart. Reports bleeding has stopped. BP elevated, will recheck before pt leaves documented in this encounter Plan of Treatment Upcoming Encounters Date Type Department Care Team (Late st Contact Info) Description 11/11/2023 10:45 AM EDT Office Visit Gynecology/Obstetrics Jasmin Man [address] [place] [address] Bonnie Almanzar CRNP [address] [place] [address] Adelia Man Stress Tests Lizeth [address] [place] [address] 11/14/2023 9:45 AM EDT Office Visit Gynecology/Obstetrics Jasmin Man [address] [place] [address] Sobia Gould CRNP [address] [place] [address] Adelia Man Stress Tests Lizeth [address] [place] [address] 11/18/2023 1:45 PM EDT Office Visit Gynecology/Obstetrics Jasmin Man [address] [place] [address] Sobia Gould CRNP [address] [place] [address] [place] Non Stress Tests Lizeth [address] [place] [address] 11/21/2023 8:45 AM EDT Imaging Maternal Medicine Imaging, Lizeth Man [address] [place] [address] 11/21/2023 9:45 AM EDT Office Visit Gynecology/Obstetrics Mark's Man [address] [place] [address] Sobia Gould CRNP [address] [place] [address] Donovan Non Stress Tests Lizeth [address] [place] [address] 11/25/2023 9:30 AM EDT Office Visit Gynecology/Obstetrics Mark's Man [address] [place] [address] Sobia Gould CRNP [address] [place] [address] Donovan Non Stress Tests Lizeth [address] [place], [place] [address] 11/28/2023 1:45 PM EDT Office Visit Gynecology/Obstetrics Jasmin Chengs [address] [place] [address] Sobia Gould CRNP [address] [place] [address] Donovan Non Stress Tests Lizeth [address] [place], [place] [address] 12/02/2023 9:30 AM EDT Office Visit Gynecology/Obstetrics [address] [place] [address] Sobia Gould CRNP [address] [place] [address] 12/05/2023 1:45 PM EDT Office Visit Gynecology/Obstetrics Mark's Man [address] [address] Sobia Gould CRNP [address] [place] [address] Donovan Non Stress Tests Lizeth [address] [place] [address] 12/09/2023 9:00 AM EDT Office Visit Gynecology/Obstetrics Jasmin Man [address] [place] [address] Flower Jordan PA-C [address] [place] [address] [place] [address] [place] Non Stress Tests Lizeth [address] [place], [place] [address] 12/12/2023 1:45 PM EDT Office Visit Gynecology/Obstetrics Jasmin Man [address] [place] [address] Sobia Gould CRNP [address] [place] [address] Donovan Non Stress Tests Lizeth [address] [place] [address] 12/16/2023 9:30 AM EDT Office Visit Gynecology/Obstetrics [address] [place] [address] Sobia Gould CRNP [address] [place] [address] 12/19/2023 1:45 PM EDT Office Visit Gynecology/Obstetrics Jasmin Man [address] [place] [address] Sobia Gould CRNP [address] [place] [address] Donovan Non Stress Tests Lizeth [address] [place] [address] 12/23/2023 2:30 PM EDT Office Visit Gynecology/Obstetrics Jasmin Man [address] [place] [address] Evaristo Harper MD [address] [place] [address] Adelia Man Stress Tests Lizeth [address] [place] [address] 12/26/2023 1:45 PM EDT Office Visit Gynecology/Obstetrics Jasmin Chengs [address] [place] [address] Sobia Gould CRNP [address] [place] [address] Adelia Man Stress Tests Lizeth [address] [place] [address] 12/30/2023 1:00 PM EST Office Visit Gynecology/Obstetrics Jasmin Man [address] [place] [address] Bonnie Almanzar CRNP [address] [place] [address] Adelia Man Stress Tests Lizeth [address] [place] [address] Health Maintenance Due Date Last Done Comments [...] of this encounter Visit Diagnoses Diagnosis High-risk , third trimester- Primary Fibromyalgia Mylagia and myositis, unspecified Supervision of normal first , antepartum Obesity during in second trimester Tobacco smoking affecting in second trimester Gestational diabetes mellitus (GDM) controlled on oral hypoglycemic drug, antepartum Blood pressure elevated without history of HTN Elevated blood pressure reading without diagnosis of hypertension Class 1 obesity documented in this encounter Care Teams Bench Assembly Inspector Relationship Specialty Start Date End Date Lainey Troy DO [address] [place] [address] [place] [address] PCP - General Internal Medicine 07/09/16 documented as of this encounter
--- OUTSIDE RECORDS SUMMARY | 2023-11-25 08:10 | External Medical Summary | Summary of Care ---
Author Name Unknown Organization [facility] Address [address] [place] [address] Phone [phone] Care Team Providers Care Agency Service Coordinator Name Role Phone Lainey Troy DO Primary Care Provider Reason for Visit * Reason Onset Date Comments Hospital Follow-Up 11/07/2023 JOAN Encounter Details Date Type Department Care Team (Late st Contact Info) Description 11/07/2023 Telephone Family Medicine [address] [id number] Lainey Troy DO [address] [place] [address] [place] [id number] Hospital Follow-Up (JOAN) Allergies No known active allergiesdocumented as of [...] Capsule Therapy Pack Take by mouth. [employer] [facility] Flex System w/Device KitIndications:Diet controlled gestational diabetes mellitus (GDM) in second trimester Use to test blood sugars 4 times daily (fasting, 1 hour after breakfast, lunch, and dinner) 1 Kit 07/11/2023 [employer] In Vitro Strip (Glucose Blood)Indications:D iet controlled gestational diabetes mellitus (GDM) in second trimester Use to test blood sugars 4 times daily (fasting, 1 hour after breakfast, lunch, and dinner) 125 Strip 6 07/11/2023 [employer] Lancets 30GIndications:Diet controlled gestational diabetes mellitus (GDM) [...] contact for RPM. Message sent to the [facility] to schedule FU ADAPT 07/23/23: RPM reviewed; Elevated FBS and PP's. Msg to [facility] to schedule ADAPT visit. Nutrition visit schedule 08/02/23. 07/25/23: ADAPT visit complete; elevated FBS and some PP values; patient deferred starting insulin but agreeable to Metformin; ordered Metformin 500mg PO daily with evening meal/snack; recommend fasting 8-10 hours overnight along with having a bedtime snack of 30g CHO paired with protein; recommend keeping food log; patient aware of upcoming Nutrition visit 07/29/[id number] stable. Multiple missed readings; encouraged to test and report as instructed. 08/05/20232080-YUC-knqrzznd post prandial lunch and dinner values. Maternal medicine nurse practitioners to review. 08/05/23: RPM reviewed; PP elevations; increase to Metformin 500mg PO with breakfast and evening meal/snack 08/06/23: HgbA1c 5.5% 08/09/23: RPM message received - patient reporting GI symptoms; recommend F/U ADAPT to discuss possibility of switching to insulin; awaiting patient response back 08/12/[id number]-[id number]-njfzfwze elevated fasting blood sugars and post prandial values. Patient agreeable to follow up ADAPT appointment. [facility] [facility] [place]aged to schedule. 08/14/23: ADAPT follow-up [...] can discuss switching to insulin if needed. 08/19/20236145-[id number]-mxrffgq stable (< 50% elevated) 08/26/2023-RPM-3 elevated fasting [...] lunch and the 1000 mg at bedtime. 09/30/[id number]-yluizzlg 4 of the past 7 days; overall stable. Messaged to be consistent with testing/reporting four times daily 10/07/20239855-WVR-cgdflfa stable (< 50% elevated) 10/14/[id number]-ZEX-ylsuglh stable. 3 of 7 elevated post prandial dinner values; advised to watch diet and will follow up next week 10/21/[id number]-FSO-djbjqgj stable (< 50 % elevated) 10/29/[id number]-KNK-bxhrxzp stable (2 elevated post prandial breakfast and 2 elevated post prandial dinner values) 11/04/20238647-MSZ-sxfccn Last Assessment & Plan: Working with ADAPT. [...] money to get more. Never true 08/16/2023 Nye Depression Scale Answer Date Recorded Nye Depression Scale Total 13 06/04/2023 The thought [...] encounter Miscellaneous Notes * Telephone Encounter - Shyla Hudson RN - 11/07/2023 7:47 AM EDT Transitions of Care Note Reason for Referral:Recent Admission Phone visit for follow up: Inpatient Hospitalization Admitted to: [facility], Date: 11/05/23 Discharged to: Home, Date: 11/06/23 JOAN call not indicated due to patient admitted for bleeding during 3rd trimester, will follow up with SURVEY DATA TECHNICIAN. documented in this encounter Plan of Treatment Upcoming Encounters Date Type Department Care Team (Late st Contact Info) Description 11/07/2023 11:00 AM EDT Office Visit Gynecology/Obstetrics Jasmin Man [address] [place] [address] Sobia Gould CRNP [address] [place] [address] Adelia Man Stress Tests Lizeth [address] [place] [address] 11/11/2023 10:45 AM EDT Office Visit Gynecology/Obstetrics Jasmin Man [address] [place] [address] Bonnie Almanzar CRNP [address] [place] [address] Donovan Non Stress Tests Lizeth [address] [place] [address] 11/14/2023 9:45 AM EDT Office Visit Gynecology/Obstetrics Jasmin Chengs [address] [place] [address] Sobia Gould CRNP [address] [place] [address] Man, Non Stress Tests Lizeth [address] [place] [address] 11/18/2023 1:45 PM EDT Office Visit Gynecology/Obstetrics Jasmin Chengs [address] [place], [place] [address] Sobia Gould CRNP [address] [place] [address] [place] Non Stress Tests Lizeth [address] [place], [place] [address] 11/21/2023 8:45 AM EDT Imaging Maternal Medicine Imaging, Lizeth Man [address] [place], [place] [id number] 11/21/2023 9:45 AM EDT Office Visit Gynecology/Obstetrics Jasmin Man [address] [place], [place] [address] Sobia Gould CRNP [address] [place] [address] [place], Non Stress Tests Lizeth [address] [place] [address] 11/25/2023 9:30 AM EDT Office Visit Gynecology/Obstetrics Jasmin Chengs [address] [place], [place] [address] Sobia Gould CRNP [address] [place], [place] [address] Man, Non Stress Tests Lizeth [address] [place] [address] 11/28/2023 1:45 PM EDT Office Visit Gynecology/Obstetrics Mark's Man [address] [place], [place] [address] Sobia Gould CRNP [address] [place] [address] Man, Non Stress Tests Lizeth [address] [place] [address] 12/02/2023 9:30 AM EDT Office Visit Gynecology/Obstetrics [address] [place] [address] Sobia Gould CRNP [address] [place], [place] [address] 12/05/2023 1:45 PM EDT Office Visit Gynecology/Obstetrics Jasmin Man [address] [place] [address] Sobia Gould CRNP [address] [place] [address] [place], Non Stress Tests Lizeth [address] [place] [address] 12/09/2023 9:00 AM EDT Office Visit Gynecology/Obstetrics [facility] [place] [address] [place], [place] [address] F[place] PA-C [address] [place] [address] [place] [address] Man, Non Stress Tests Lizeth [address] [place] [address] 12/12/2023 1:45 PM EDT Office Visit Gynecology/Obstetrics [facility] Man [address] [place] [address] Sobia Gould CRNP [address] [place] [address] [place], Non Stress Tests Lizeth [address] [place] [address] 12/16/2023 9:30 AM EDT Office Visit Gynecology/Obstetrics [address] [place] [address] Sobia Gould CRNP [address] [place] [address] 12/19/2023 1:45 PM EDT Office Visit Gynecology/Obstetrics [facility] Man [address] [place] [address] Sobia Gould CRNP [address] [place] [address] [place] Non Stress Tests Lizeth [address] [place] [address] 12/23/2023 2:30 PM EDT Office Visit Gynecology/Obstetrics [facility] Man [address] [place] [address] Evaristo Harper MD [address] [place] [address] [place], Non Stress Tests Lizeth [address] [place] [address] 12/26/2023 1:45 PM EDT Office Visit Gynecology/Obstetrics [facility] Man [address] [place] [address] Sobia Gould CRNP [address] [place] [address] [place], Non Stress Tests Lizeth [address] [place] [address] 12/30/2023 1:00 PM EST Office Visit Gynecology/Obstetrics Jasmin Man [address] [place] [address] NilesherBonnie CRNP [address] [place] [address] [place], Non Stress Tests Lizeth [address] [place] [address] Health Maintenance Due Date Last Done Comments [...] filedocumented as of this encounter Care Teams Agency Service Coordinator Relationship Specialty Start Date End Date Lainey Troy DO [address] [place] [address] [place] [address] PCP - General Internal Medicine 07/09/16 documented as of this encounter
[2023-11-25] MEDS: LABETALOL HCL 100 MG TAB PO ONE ×2 (09:46→12:37)
--- NOTE | 2023-11-25 10:08 | History & Physical Report ---
Date of Service November 25, 2023 Assessment & Plan (1) with third trimester bleeding, antepartum: Plan: Pelvic exam revealed a vertex presentation with the cervix paperthin. (2) Premature labor after 22 weeks and before 37 weeks without delivery, antepartum: History of Present Illness Chief Complaint: Uterine 35 weeks 1 day gestation vaginal bleeding. Painful uterine contractions. Primary Care Provider: Lainey Troy DO Patient is a 33-year-old 1 para 0 followed in the office for care and delivery. has been well dated. Her due dates December 30, 2023. is complicated by smoking. Gestational diabetes. And hypertension. She is a pack-a-day smoker. She is on labetalol 100 mg twice a day. She has been on the medication for the past 10 days. She has been on labetalol approximately 1000 mg twice a day throughout her entire . She presents today with painful contractions and vaginal bleeding. She states that she has been having contractions all weekend. But this morning when she woke up she had some vaginal bleeding and the contractions became significantly stronger. Allergies Allergy/AdvReac Type Severity Reaction Status Date / Time No Known Allergies Allergy Verified 09/27/20 15:30 Home Medications Medication Instructions Recorded Confirmed Type Control Pills 1 tab PO DAILY #0 tabs 03/24/15 History naproxen 375 mg tablet 375 mg PO BID PRN 09/27/20 09/27/20 History 1 tab PO DAILY 11/25/23 11/25/23 History Tums 500 1 tab PO Q6H PRN Heartburn 11/25/23 11/25/23 History Tylenol 1,000 mg PO Q6 PRN Pain 11/25/23 11/25/23 History labetalol 100 mg tablet 100 mg PO BID 11/25/23 11/25/23 History metformin 500 mg PO 3XD 11/25/23 11/25/23 History Past Med/Surg History Problem List Premature labor after 22 weeks and before 37 weeks without delivery, antepartum with third trimester bleeding, antepartum Urinary symptom or sign Urinary frequency Headache (Acute) Uses control (Chronic) Medical History (Updated 11/25/23 @ 10:06 by Azam Carias MD) Gestational diabetes IBS (irritable bowel syndrome) Gestational hypertension No pertinent past medical history Surgical History No pertinent past surgical history Family History Grandmother (Maternal) Skin cancer Colonic polyp Diabetes Father Heart murmur Hypertension Brother Heart murmur Aunt Breast cancer Grandmother (Paternal) Colonic polyp Prostate cancer Social History (Updated 11/05/23 @ 22:14 by France Banda RN) Smoking Status: Current every day smoker Tobacco Type: Cigarettes Cigarettes Per Day: 20; Hx Alcohol Use: No Hx Substance Use: No Preferred Language: Setswana Communication Ability: Effective Visual Impairment: No Limitations Beliefs That Will Affect Care: None marital status: marital status details: Chiki Emmanuel Current Living Situation: Spouse current occupational status: employed 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 Lungs are clear to auscultation and percussion. Heart had a regular rhythm S1 and S2 are normal. Trachea was midline. Abdomen revealed a gravid uterus. There was no tenderness palpable. There was no CVA tenderness. Estimated weight was approximately 5 pounds. Pelvic exam revealed a vertex presentation. The cervix to be 3 cm paperthin. 0 station. There was no calf tenderness. Results & Data Results & Data Vital Signs (Past 12 Hours) Vital Signs Temp Pulse Resp BP 11/25/23 09:29 82 146/96 H 11/25/23 09:19 96 H 159/113 H 11/25/23 08:59 88 146/94 H 11/25/23 08:48 92 H 145/92 H 11/25/23 08:41 86 160/85 H 11/25/23 08:29 93 H 138/96 11/25/23 08:12 94 H 176/96 H 11/25/23 08:09 18 11/25/23 08:09 37.0 C 18 Code Status & VTE Plan VTE Prophylaxis Plan VTE Prophylaxis will be ordered: No
[2023-11-25] MEDS ORDERED: CALCIUM CARBONATE 500 MG CHEWABLE TAB PO PRN (10:19)
[2023-11-25] MEDS ORDERED: LIDOCAINE 1% LOCAL 20 ML VIAL INFIL PRN (10:19)
[2023-11-25] MEDS ORDERED: OXYTOCIN 30 UNITS/NSS 30 UNITS/500 ML BAG IV PRN (10:19)
[2023-11-25 10:49] LABS: Hematocrit (blood only) 39.9 % (37.0-47.0); Hemoglobin 14.2 g/dl (12.0-16.0); Mean Corpuscular Hemoglobin 31.3 pg (25.0-34.0); Mean Corpuscular Hgb Conc 35.6 g/dL (32.0-36.0); Mean Corpuscular Volume 88.1 fL (80.0-100.0); Mean Platelet Volume 12.2 fL (9.4-12.4); Platelet Count 233 K/uL (130-400); RDW Coefficient of Variation 14.2 % (11.5-14.5); RDW Standard Deviation 45.9 fL (36.4-46.3); Red Blood Count 4.53 M/uL (4.20-5.40); White Blood Count 16.13 K/ul (4.8-10.8)
[2023-11-25] MEDS: LACTATED RINGER'S 1,000 ML IV PRN (11:11)
[2023-11-25] MEDS: PENICILLIN GK 6 MU in DEXTROSE 5% 250 ML IV STA (11:55)
[2023-11-25] MEDS: PENICILLIN GK 3 MU in DEXTROSE 5% 100 ML IV PRN (15:30)
[2023-11-25] MEDS ORDERED: NALBUPHINE HCL INJ 10 MG/ML AMP IV PRN (17:08)
[2023-11-25] MEDS ORDERED: ONDANSETRON INJ 2 MG/ML 2 ML VIAL IV PRN (17:08)
[2023-11-25] MEDS ORDERED: fentaNYL citrate PF 100 MCG/2 ML VIAL EPI PRN (17:08)
[2023-11-25] MEDS ORDERED: BUPIVACAINE 0.25% PF 30 ML VIAL EPI PRN (17:08)
[2023-11-25] MEDS ORDERED: ROPIVACAINE 0.5% PF 5 MG/ML 20 ML VIAL EPI PRN (17:08)
[2023-11-25] MEDS ORDERED: SODIUM CHLORIDE 0.9% PF INJ 10 ML VIAL EPI PRN (17:08)
[2023-11-25] MEDS ORDERED: diphenhydrAMINE 50 MG/ML VIAL IV PRN (17:08)
[2023-11-25] MEDS ORDERED: LIDOCAINE 2% MPF LOCAL 5 ML VIAL EPI PRN (17:08)
[2023-11-25] MEDS ORDERED: NALOXONE HCL 0.4 MG/1 ML VIAL/CARP IV PRN (17:08)
[2023-11-25] MEDS ORDERED: fentANYL 2 MCG/ML BUPIVacaine 0.125%-NSS 100ML BAG EPI PRN (17:08)
[2023-11-25] MEDS ORDERED: NALOXONE HCL 1 MG in SODIUM CHLORIDE 0.9% 1,000 ML IV PRN (17:08)
[2023-11-25] MEDS ORDERED: ePHEDrine sulfate 50 MG/ML AMP IV PRN (17:08)
--- NOTE | 2023-11-25 17:10 | Anesthesiology Consultation ---
Date of Service November 25, 2023 Assessment & Plan (1) Encounter for pre-operative examination: Chart Review Chart Review: Patient NOT seen in Pre Admission Testing and Acceptable Risk for Labor Epidural Consults Requested none History Height/Weight Height: 5 ft 5 in Weight: 89.812 kg Allergies Allergy/AdvReac Type Severity Reaction Status Date / Time No Known Allergies Allergy Verified 11/25/23 16:29 Medications Home Medications Medication Instructions Recorded Confirmed Last Taken Control Pills 1 tab PO DAILY #0 tabs 03/24/15 Unknown naproxen 375 mg tablet 375 mg PO BID PRN 09/27/20 09/27/20 Unknown 1 tab PO DAILY 11/25/23 11/25/23 11/22/23 21:00 Tums 500 1 tab PO Q6H PRN Heartburn 11/25/23 11/25/23 11/22/23 21:00 Tylenol 1,000 mg PO Q6 PRN Pain 11/25/23 11/25/23 11/24/23 21:00 aspirin 1 tab PO DAILY 11/25/23 11/25/23 11/11/23 21:00 cyclobenzaprine 10 mg tablet 10 mg PO HS PRN Muscle Spasm 11/25/23 11/25/23 11/22/23 21:00 labetalol 100 mg tablet 100 mg PO BID 11/25/23 11/25/23 11/24/23 21:00 metformin 500 mg PO 3XD 11/25/23 11/25/23 11/24/23 21:00 Active Medications Generic Name Dose Route Start Last Admin Trade Name Freq PRN Reason Stop Dose Admin Lactated Ringer's 1,000 mls @ 125 mls/hr 11/25/23 10:19 11/25/23 17:20 Lr IV 11/27/23 10:18 999 mls/hr .Q8H PRN Administration L&D Protocol Protocol Penicillin G Potassium 3 mu/ 106 mls @ 100 mls/hr 11/25/23 13:19 11/25/23 15:30 Dextrose IV 12/05/23 13:18 100 mls/hr Q4H PRN Administration GBS(+) Until Delivery Past Medical History Medical History (Updated 11/25/23 @ 17:10 by Mike Lopez MD) Encounter for pre-operative examination Fibromyalgia Gestational diabetes IBS (irritable bowel syndrome) Gestational hypertension No pertinent past medical history Past Family History Family History Grandmother (Maternal) Skin cancer Colonic polyp Diabetes Father Heart murmur Hypertension Brother Heart murmur Aunt Breast cancer Grandmother (Paternal) Colonic polyp Prostate cancer Past Surgical History Surgical History No pertinent past surgical history Social History Smoking Status: Current every day smoker Smoking cigarettes per day: 20 Hx Alcohol Use: No Hx Substance Use: No substance use type: does not use Physical Exam Vital Signs Last Vital Signs Temp 37.0 C 11/25/23 15:36 Pulse 95 H 11/25/23 17:37 Resp 18 11/25/23 15:36 BP 160/92 H 11/25/23 17:35 Pulse Ox 97 11/25/23 17:37 Testing Laboratory Results 11/25/23 10:26 11/25/23 11:29 POC Glucose 86
[2023-11-25] MEDS: BUPIVACAINE 0.25% PF 30 ML VIAL ONE (17:33)
[2023-11-25] MEDS: fentaNYL citrate PF 100 MCG/2 ML VIAL ONE (17:33)
[2023-11-25] MEDS: LIDOCAINE 2%/EPINEPHRINE 1:200,000 20 ML PF ONE (17:33)
[2023-11-25] MEDS: fentANYL 2 MCG/ML BUPIVacaine 0.125%-NSS 100ML BAG ONE (17:50)
[2023-11-25] MEDS: BUPIVACAINE 0.25% PF 30 ML VIAL EPI STA (18:19)
[2023-11-25] MEDS: fentaNYL citrate PF 100 MCG/2 ML VIAL EPI STA (18:19)
[2023-11-25] MEDS: LIDOCAINE 2%/EPINEPHRINE 1:200,000 20 ML PF EPI STA (18:20)
[2023-11-25] MEDS: SODIUM CHLORIDE 0.9% PF INJ 10 ML VIAL EPI STA (18:20)
[2023-11-25] MEDS: SODIUM CHLORIDE 0.9% PF INJ 10 ML VIAL ONE (18:21)
[2023-11-25] MEDS: ePHEDrine sulfate 50 MG/ML AMP ONE (18:49)
[2023-11-25] MEDS: OXYTOCIN 30 UNITS/NSS 30 UNITS/500 ML BAG IV PRN (19:10)
[2023-11-25] MEDS: LABETALOL HCL 100 MG TAB PO SCH (20:56)
[2023-11-25] MEDS ORDERED: NURSING L&D Epidural Breakthrough Pain Update ONE (22:34)
[2023-11-25] MEDS: miSOPROStoL 200 MCG TAB PR ONE (23:59)
[2023-11-26] MEDS ORDERED: ACETAMINOPHEN 325 MG TAB PO PRN (00:08)
[2023-11-26] MEDS ORDERED: ACETAMINOPHEN W/CODEINE #3 1 TAB PO PRN (00:08)
[2023-11-26] MEDS ORDERED: HYDROCORTISONE ACETATE 25 MG SUPP PR PRN (00:08)
[2023-11-26] MEDS ORDERED: OXYTOCIN 30 UNITS/NSS 30 UNITS/500 ML BAG IV PRN (00:08)
[2023-11-26] MEDS ORDERED: oxyCODONE/ACETAMINOPHEN 5mg/325mg TAB PO PRN (00:08)
--- NOTE | 2023-11-26 00:13 | Delivery Summary ---
Vaginal Delivery Summary Date of Service November 26, 2023 Vaginal Delivery Summary Patient was followed in the office for care and delivery. Patient was admitted in active labor at 35 weeks and 1 day gestational age. On admission she had a bloody show along with a cervical dilatation of about 3 to 4 cm with the cervix paperthin. And station was 0. She had no beta strep culture. So she was treated with penicillin IV. We did not rupture the membranes so she got her second dose of penicillin. We then ruptured the membranes at that time fluid was noted to be clear. She was then augmented with IV Pitocin after receiving epidural for pain control. She delivered a live male via right occiput posterior position. Over an intact perineum. was suctioned through the mouth and the nose. Body was delivered without difficulty. Cord was allowed to pulse for 1 minute. Cord was then clamped and cut. Cord blood was taken. With IV Pitocin running the placenta was removed intact. Following this inspection of the perineum revealed a superficial first-degree laceration at 6:00. This was repaired with a running 3-0 chromic. There was also a laceration of the labia minora on the right side periurethral area this was also repaired with a running 3-0 chromic. Quantitative blood loss was 104 mL. She was also given rectal Cytotec to contract the uterus. Patient tolerated delivery well.
[2023-11-26] MEDS: DIPHTHER/TETAN/PERTUS Vaccine (Tdap, Adol/Adult) 0.5mL IM ONE (00:31)
[2023-11-26] MEDS: IBUPROFEN 600 MG TAB PO PRN (02:09)
[2023-11-26] MEDS: BENZOCAINE 20% SPRY 85 APPLN/85 GM CAN EXT PRN (02:09)
--- NOTE | 2023-11-26 05:24 | Anesthesia Procedure Note ---
Date of Service November 26, 2023 Anesthesia Post Epidural Note Vital Signs Vital Signs: Temp Pulse Resp BP Pulse Ox O2 Del Method 37.5 C 101 H 18 131/85 96 Room Air 11/26/23 03:35 11/26/23 03:35 11/26/23 03:35 11/26/23 03:35 11/26/23 03:35 11/26/23 03:35 Pain Intensity Abdomen: Pain Intensity: 8 Back: Pain Intensity: 4 Notes Mental Status: alert / awake / arousable and participated in evaluation Patient Amnestic to Procedure: No Nausea / Vomiting: adequately controlled Pain: adequately controlled Airway Patency, RR, SpO2: stable & adequate BP & HR: stable & adequate Hydration State: stable & adequate Neuraxial Anesthesia: was administered and sensory block resolved Anesthetic Complications: no major complications apparent and Pt Satisfied with anesthetic care Epidural: Removed without complications and With tip intact
[2023-11-26] MEDS: DOCUSATE SODIUM 100 MG CAP PO SCH (08:00)
[2023-11-26] MEDS: PRENATAL VITAMIN 1 TAB PO SCH (08:00)
[2023-11-26] MEDS: hydrALAZINE HCL 20 MG/ML VIAL IV ONE (19:23)
[2023-11-26] MEDS: ACETAMINOPHEN 325 MG TAB PO PRN (19:38)
[2023-11-26] MEDS: hydrALAZINE HCL 20 MG/ML VIAL ONE (19:43)
--- NOTE | 2023-11-26 19:50 | Obstetrical Progress Note ---
Date of Service November 26, 2023 Assessment & Plan (1) Normal course: Pt with elevated BP Received Hydralazine IV x1 BP Improved o hydralazine Preeclampsia labs ordered STAT Will start pt on her labetalol (2) Chronic hypertension affecting : Subjective Ambulation: ambulating normally Voiding: no voiding problems Passing Gas:: Yes Diet Tolerance:: regular diet Lochia:: Small Feeding Type:: breast feeding Review of Systems All systems reviewed & are unremarkable except as noted in HPI & below Physical Exam Constitutional WD/WN, vitals as above well developed and well nourished Eyes PERRL, conjunctivae normal, anicteric sclerae Neck trachea midline, no thyromegaly Respiratory normal respiratory effort, lungs clear to auscultation Auscultation: no crackles, no rales and no wheezes Cardiovascular RRR, no murmur, no edema Gastrointestinal (Abdomen) normal bowel sounds, soft, nontender, no hepatosplenomegaly Uterus is below umbilicus Musculoskeletal no cyanosis or clubbing, extremities motor strength 5/5 Skin no rashes, warm and dry Neurologic patellar DTR's 2+ bilat, sensation intact Psychiatric A+Ox3, euthymic affect Genitourinary normal external appearance Results & Data Vital Signs (Past 12 Hours) Vital Signs Temp Pulse Resp BP Pulse Ox O2 Del Method 11/26/23 16:00 37.4 C 79 20 148/96 H 95 Room Air 11/26/23 12:00 37.2 C 79 18 141/94 H 100 Room Air 11/26/23 07:45 37.4 C 87 18 129/88 97 Room Air
[2023-11-26 20:13] LABS: Basophils # (auto) 0.04 K/uL (0.00-0.20); Basophils % (auto) 0.3 %; Eosinophils # (auto) 0.01 K/uL (0.00-0.50); Eosinophils % (auto) 0.1 %; Hematocrit (blood only) 36.7 % (37.0-47.0); Hemoglobin 12.7 g/dl (12.0-16.0); Immature Granulocytes # (auto) 0.12 K/uL (0.01-0.20); Lymphocytes # (auto) 3.06 K/uL (1.20-3.40); Lymphocytes % (auto) 25.8 %; Mean Corpuscular Hemoglobin 30.9 pg (25.0-34.0); Mean Corpuscular Hgb Conc 34.6 g/dL (32.0-36.0); Mean Corpuscular Volume 89.3 fL (80.0-100.0); Mean Platelet Volume 12.1 fL (9.4-12.4); Monocytes # (auto) 0.78 K/uL (0.11-0.59); Monocytes % (auto) 6.6 %; Neutrophils # (auto) 7.83 K/uL (1.40-6.50); Neutrophils % (auto) 66.2 %; Platelet Count 219 K/uL (130-400); RDW Coefficient of Variation 14.3 % (11.5-14.5); RDW Standard Deviation 46.5 fL (36.4-46.3); Red Blood Count 4.11 M/uL (4.20-5.40); White Blood Count 11.84 K/ul (4.8-10.8)
[2023-11-26 20:32] LABS: Albumin Globulin Ratio 1.1 (0.9-2); Albumin Level 3.1 gm/dl (3.4-5.0); BUN Creatinine Ratio 17.3 (10-20); Bilirubin,Total 0.2 mg/dl (0.2-1.0); Calcium 9.3 mg/dl (8.6-10.3); Creatinine Clr Calc Pharmacy 119.2 ml/min; Est GFR (African American) 122.2 ml/min; Est GFR (Non-African American) 105.5 ml/min; Globulin 2.9 gm/dl (2.5-4.0); Potassium 3.8 mmol/L (3.5-5.1)
[2023-11-26 21:23] VITALS: TEMP 98.4
[2023-11-27 07:40] LABS: Basophils # (auto) 0.07 K/uL (0.00-0.20); Basophils % (auto) 0.6 %; Eosinophils # (auto) 0.06 K/uL (0.00-0.50); Eosinophils % (auto) 0.5 %; Hematocrit (blood only) 37.9 % (37.0-47.0); Hemoglobin 13.4 g/dl (12.0-16.0); Immature Granulocytes # (auto) 0.23 K/uL (0.01-0.20); Immature Granulocytes % (auto) 1.9 %; Lymphocytes # (auto) 3.87 K/uL (1.20-3.40); Lymphocytes % (auto) 31.8 %; Mean Corpuscular Hemoglobin 31.5 pg (25.0-34.0); Mean Corpuscular Hgb Conc 35.4 g/dL (32.0-36.0); Mean Platelet Volume 11.9 fL (9.4-12.4); Monocytes # (auto) 0.81 K/uL (0.11-0.59); Monocytes % (auto) 6.7 %; Neutrophils # (auto) 7.14 K/uL (1.40-6.50); Neutrophils % (auto) 58.5 %; Platelet Count 248 K/uL (130-400); RDW Standard Deviation 45.7 fL (36.4-46.3); Red Blood Count 4.26 M/uL (4.20-5.40); White Blood Count 12.18 K/ul (4.8-10.8)
[2023-11-27 07:51] LABS: Albumin Globulin Ratio 1.2 (0.9-2); Albumin Level 3.4 gm/dl (3.4-5.0); BUN Creatinine Ratio 17.6 (10-20); Bilirubin,Total 0.3 mg/dl (0.2-1.0); Calcium 9.4 mg/dl (8.6-10.3); Creatinine Clr Calc Pharmacy 131.5 ml/min; Est GFR (African American) 134.1 ml/min; Est GFR (Non-African American) 115.7 ml/min; Globulin 2.9 gm/dl (2.5-4.0); Potassium 4.2 mmol/L (3.5-5.1); Total Protein 6.3 gm/dl (6.0-8.3)
[2023-11-27 09:36] VITALS: RESP 18
--- NOTE | 2023-11-27 10:16 | Labor Progress Brief Note ---
Date of Service November 27, 2023 Subjective Reason For Note: Routine Evaluation Assessment & Plan Admission and Anticipated Discharge Date Admission Date: November 25, 2023 Physical Exam Constitutional: WD/WN, vitals as above Musculoskeletal: Extremities: extremities normal to inspection Skin: no rashes, warm and dry Neurologic: patellar DTR's 2+ bilat, sensation intact Psychiatric: A+Ox3, euthymic affect Results & Data Vital Signs (Past 12 Hours) Vital Signs Temp Pulse Resp BP BP Pulse Ox O2 Del Method 11/27/23 08:00 36.9 C 80 18 146/90 H 96 Room Air 11/27/23 04:40 149/91 H 11/27/23 03:56 152/94 H 11/27/23 03:45 157/105 H 136/83 11/27/23 03:39 164/105 H 11/26/23 23:10 143/84 H 11/26/23 23:05 76 16 155/93 H 145/87 H 96 Room Air Laboratory Results Laboratory Results - last 72 hr 11/25/23 11/25/23 11/26/23 10:26 11:29 19:54 WBC 16.13 H 11.84 H RBC 4.53 4.11 L Hgb 14.2 12.7 Hct 39.9 36.7 L MCV 88.1 89.3 MCH 31.3 30.9 MCHC 35.6 34.6 RDW Std Deviation 45.9 46.5 H RDW Coeff of Fiorella 14.2 14.3 Plt Count 233 219 MPV 12.2 12.1 Immature Gran % (Auto) 1.0 Neut % (Auto) 66.2 Lymph % (Auto) 25.8 Mcdowell % (Auto) 6.6 Eos % (Auto) 0.1 Baso % (Auto) 0.3 Neut # (Auto) 7.83 H Lymph # (Auto) 3.06 Mcdowell # (Auto) 0.78 H Eos # (Auto) 0.01 Baso # (Auto) 0.04 Immature Gran # (Auto) 0.12 Sodium 138 Potassium 3.8 Chloride 106 Carbon Dioxide 24 Anion Gap 8 BUN 13 Creatinine 0.75 Est Cr Clr Drug Dosing 119.2 Est GFR ( Amer) 122.2 Est GFR (Non-Af Amer) 105.5 BUN/Creatinine Ratio 17.3 Glucose 107 H POC Glucose 86 Calcium 9.3 Total Bilirubin 0.2 AST 18 ALT 13 Alkaline Phosphatase 122 H Total Protein 6.0 Albumin 3.1 L Globulin 2.9 Albumin/Globulin Ratio 1.1 Treponema pallidum Ab Negative 11/27/23 11/27/23 07:07 07:10 WBC 12.18 H RBC 4.26 Hgb 13.4 Hct 37.9 MCV 89.0 MCH 31.5 MCHC 35.4 RDW Std Deviation 45.7 RDW Coeff of Fiorella 14.0 Plt Count 248 MPV 11.9 Immature Gran % (Auto) 1.9 Neut % (Auto) 58.5 Lymph % (Auto) 31.8 Mcdowell % (Auto) 6.7 Eos % (Auto) 0.5 Baso % (Auto) 0.6 Neut # (Auto) 7.14 H Lymph # (Auto) 3.87 H Mcdowell # (Auto) 0.81 H Eos # (Auto) 0.06 Baso # (Auto) 0.07 Immature Gran # (Auto) 0.23 H Sodium 138 Potassium 4.2 Chloride 106 Carbon Dioxide 25 Anion Gap 7 BUN 12 Creatinine 0.68 Est Cr Clr Drug Dosing 131.5 Est GFR ( Amer) 134.1 Est GFR (Non-Af Amer) 115.7 BUN/Creatinine Ratio 17.6 Glucose 82 POC Glucose Calcium 9.4 Total Bilirubin 0.3 AST 21 ALT 14 Alkaline Phosphatase 120 H Total Protein 6.3 Albumin 3.4 Globulin 2.9 Albumin/Globulin Ratio 1.2 Treponema pallidum Ab
[2023-11-27] MEDS: LABETALOL HCL 200 MG TAB PO SCH (10:37)
[2023-11-27 12:25] VITALS: BP 133/89; PULSE 74; O2SAT 95
[2023-11-27] MEDS ORDERED: bisacodyL 5 MG TABEC PO SCH (20:00)
[2023-11-28] MEDS ORDERED: bisacodyL 10 MG SUPP PR PRN
== END 2023-11-27 15:10 | disposition home or self-care (01) | DRG 805 ==
LOC: OPB 08:00 → 4S1 08:01 → 4E2 11-26 02:56